=== PATIENT | male | born 1935 | race Caucasian/White ===

== ENCOUNTER 2018-07-26 11:13 | Observation (INO) ==
[2018-07-26 11:44] LABS: BILIRUBIN,URINE NEGATIVE (NEGATIVE); BLOOD/HEMOGLOBIN,URINE 4+ (NEGATIVE); GLUCOSE, URINE NEGATIVE (NEGATIVE); KETONES,URINE 1+ (NEGATIVE); LEUKOCYTE ESTERASE ,URINE 1+ (NEGATIVE); NITRITES,URINE NEGATIVE (NEGATIVE); PROTEIN,URINE 1+ (NEGATIVE); UROBILINOGEN,URINE NORMAL (NORMAL)
[2018-07-26 11:48] LABS: APPEARANCE,URINE CLEAR (CLEAR); BACTERIA,URINE NEGATIVE /HPF (NEGATIVE); COLOR,URINE YELLOW (YELLOW); SQUAMOUS EPITHELIAL CELL,UR NEGATIVE /HPF (NEGATIVE)
[2018-07-26 11:54] LABS: BASOPHILS % (AUTO) 0.5 % (0.2-1.0); EOSINOPHILS # (AUTO) 0.2 x10^3/uL (0.0-0.2); EOSINOPHILS % (AUTO) 2.3 % (0.9-2.9); HEMOGLOBIN 8.6 g/dL (13.5-18.0); LYMPHOCYTES # (AUTO) 0.8 X10^3/uL (1.3-2.9); LYMPHOCYTES % (AUTO) 9.3 % (21.0-51.0); MEAN CORPUSCULAR HEMOGLOBIN 31.7 pg (27.0-34.0); MEAN CORPUSCULAR HGB CONC 34.2 g/dL (33.0-35.0); MEAN CORPUSCULAR VOLUME 92.7 fL (80.0-100.0); MEAN PLATELET VOLUME 8.5 fL (7.4-11.0); MONOCYTES # (AUTO) 0.7 x10^3/uL (0.3-0.8); MONOCYTES % (AUTO) 8.2 % (0.0-13.0); NEUTROPHILS # (AUTO) 6.5 x10^3/uL (2.2-4.8); NEUTROPHILS % (AUTO) 79.7 % (42.0-75.0); PLATELET COUNT 148 X10^3/uL (150.0-450.0); RED CELL DISTRIBUTION WIDTH 14.5 % (11.6-16.5); WHITE BLOOD COUNT 8.2 X10^3/uL (3.6-10.0)
[2018-07-26] MEDS ORDERED: NS 100 ML IV 100 ML IV ONE (11:54)
[2018-07-26 12:01] LABS: ALANINE AMINOTRANSFERASE 47 Units/L (12-78); ALBUMIN 2.2 g/dL (3.4-5.0); ALKALINE PHOSPHATASE 90 Units/L (46-116); ASPARTATE AMINO TRANSFERASE 29 Units/L (15-37); BLOOD UREA NITROGEN 48 mg/dL (7-18); CHLORIDE 102 mmol/L (98-107); COR CA(FOR HYPOALB) 9.4 mg/dL (8.5-10.1); COR NA(FOR HYPERGLY) 139 mmol/L (136-145); CREATININE 0.87 mg/dL (0.70-1.30); SODIUM 138 mmol/L (136-145); TOTAL PROTEIN 5.3 g/dL (6.4-8.2); eGFR NON BLACK RACES > 60 (>60)
[2018-07-26 12:08] LABS: BAND NEUTROPHILS % 10 % (0-10); PLATELET MORPHOLOGY COMMENT NORMAL (NORMAL)
--- NOTE | 2018-07-26 13:01 | CT ---
HISTORY: Weakness, nausea, vomiting status post aortic surgery Study: CT chest abdomen pelvis with contrast Comparison: 06/19/2018 Technique: Axial post-contrast images with coronal and sagittal reformats. Dose reduction procedures were used with mA/kv adjusted for body size. Findings: CT chest with contrast: Examination of the mediastinum demonstrated no evidence for mediastinal masses, enlarged mediastinal or enlarged hilar adenopathy. There is dilatation of the aortic root and ascending aorta maximum diameter 4.3 cm. There is focal aneurysmal dilatation of the aortic arch maximum diameter 5.13 cm. No dissection identified. The origins of the great vessels are normal. No chest wall or axillary abnormality is identified. Examination of the lung horne demonstrated no definite nodules, masses, alveolar infiltrates, areas of consolidation, peribronchial thickening, or bronchiectasis. Mild nonspecific interstitial lung changes are present. CT abdomen pelvis with contrast: The liver, spleen, adrenal glands, and pancreas are within normal limits. Cholelithiasis is present. No evidence for cholecystitis. The kidneys are unobstructed and without stones or masses. Multiple bilateral renal cysts are present. No ureteral calculi are identified. The patient is status post recent aorto bi femoral stent graft placement. 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 The aneurysm extends over a distance of 10.3 cm and demonstrates maximum AP diameter 5.6 cm and maximum transverse diameter 5.3 cm. This is unchanged when compared with the prior examination. There is no evidence for leak. There are no findings suggestive of enteritis, diverticulitis, or colitis. 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 No pelvic masses, pelvic fluid, or pelvic lymphadenopathy is identified. There is a 4 cm by 3.7 cm by 5 cm hematoma surrounding the proximal left superficial femoral artery. There is no evidence for leak . Ultrasound may be of further diagnostic value in entirely excluding pseudoaneurysm. No lytic or blastic skeletal lesions of significance are identified. IMPRESSION: Dilatation of the aortic root maximum diameter 4.3 cm. Focal aneurysmal dilatation of the mid aortic arch maximum diameter 5.13 cm. Lungs clear Status post recent aortic stent graft placement in a fusiform infrarenal abdominal aortic aneurysm and left common iliac artery aneurysm. The graft is patent. There is no leak or enlargement of the diomede aneurysm Left internal iliac artery aneurysm status post coiling and unchanged in size from the prior examination.1 4.3 x 3.7 x 5 cm hematoma surrounding the proximal left superficial femoral artery without definite evidence for arterial leak ultrasound may be of further diagnostic value in entirely excluding pseudoaneurysm. Reported By:
--- NOTE | 2018-07-26 14:53 | DR.EXTPAIN ---
HPI Time seen Time Seen by Provider: 07/26/18 11:23 PCP Primary Care Physician: tatum Complaint/Symptoms Chief Complaint Doctor Comments: I agree with history as stated. Spouse states that patient has been very weak since being home on yesterday. He has vomited x 2 since discharged. There has been no dyspnea, just weakess. Chief Complaint:: patient stated he had a aneurysm repair in [place] last sunday and when he got home sunday he has been weak,nauseated and he vomited twice in 4 days. Source History Provided: Patient Mode of arrival Mode of Arrival: Ambulatory Timing Onset of Chief Complaint: 07/23/18 PMH PMH Past Medical History: Yes Past Medical History: Hypertension Past Surgical History: Yes Surgical History: Other Family History History of Family Medical Conditions: Yes Family Medical History: [place] and Hypertension Social History Does patient currently use any type of tobacco product: No Have you used tobacco products in the last 12 months: No Type of Tobacco Use: None Does any household member use tobacco: No Alcohol Use: None Do you use any recreational Drugs:: No Lives With: Family Lives Where: Home infectious screening In the last 2 months have you had wt loss of >10#?: NO Have you had fever, night sweats or hemotysis?: No Have you traveled outside the country in the last 6 months?: No Isolation: Standard PE Vital Signs Vitals: Temperature 98.6 F Pulse Rate [Right Brachial] 81 Pulse Rate 94 Respiratory Rate 16 Blood Pressure [Right Arm] 100/79 Blood Pressure 108/62 O2 Sat by Pulse Oximetry 99 General Limitations: No Limitations General Appearance: Alert and In No Apparent Distress Head Head Exam: Normal Inspection, Atraumatic and Normocephalic Eyes Eye exam: Normal Appearance and PERRL ENT ENT Exam: Normal Exam and Normal Oropharynx Chest Chest Inspection: Normal Inspection and Symmetric Chest Wall Rise Respiratory Respiratory Exam: Normal Lung Sounds Bilat Respiratory Exam: Bilateral: Clear to Auscultation Cardiovascular Cardiovascular Exam: Regular Rate and Normal Rhythm Abdominal Exam Abdominal Exam: Normal Inspection, Normal Bowel Sounds and Soft Extremities Extremities Exam: Normal Inspection and Full ROM Upper Extremities Shoulder Exam: Normal Inspection and Full ROM Arm Exam: Normal Inspection and Full ROM Elbow Exam: Normal Inspection Forearm Exam: Normal Inspection and Full ROM Hand Exam: Normal Inspection Neuromotor Exam: Normal Exam Neurosensory Exam: Normal Exam Lower Extremities Hip/Pelvis Exam: Normal Inspection Upper Leg Exam: Normal Inspection Knee Exam: Normal Inspection Lower Leg Exam: Normal Inspection Ankle Exam: Normal Inspection Foot/Toe Exam: Normal Inspection Neurovascular/Tendon Exam: Normal Capillary Refill Back Back Exam: Normal Inspection Neurological Neurological Exam: Alert, Oriented X3 and CN II-XII Intact Psychiatric Psychiatric Exam: Normal Affect Skin Skin Exam: Warm, Dry and Intact COURSE Consultation Called: 14:10 Consultation Comments: Dr. Cartagena called stated that he will direct admit patient. Physical completed. ROR Labs Reviewed Result Diagrams: 07/26/18 11:35 07/26/18 11:35 Laboratory: WBC 8.2 X10^3/uL (3.6-10.0) 07/26/18 11:35 RBC 2.70 X10^6/uL (4.7-6.0) L 07/26/18 11:35 Hgb 8.6 g/dL (13.5-18.0) L 07/26/18 11:35 Hct 25.0 % (42.0-54.0) L 07/26/18 11:35 MCV 92.7 fL (80.0-100.0) 07/26/18 11:35 MCH 31.7 pg (27.0-34.0) 07/26/18 11:35 MCHC 34.2 g/dL (33.0-35.0) 07/26/18 11:35 RDW 14.5 % (11.6-16.5) 07/26/18 11:35 Plt Count 148 X10^3/uL (150.0-450.0) L 07/26/18 11:35 Plt Count Comment Adequate (ADEQUATE) 07/26/18 11:35 MPV 8.5 fL (7.4-11.0) 07/26/18 11:35 Neut % (Auto) 79.7 % (42.0-75.0) H 07/26/18 11:35 Lymph % (Auto) 9.3 % (21.0-51.0) L 07/26/18 11:35 [place] % (Auto) 8.2 % (0.0-13.0) 07/26/18 11:35 Eos % (Auto) 2.3 % (0.9-2.9) 07/26/18 11:35 Baso % (Auto) 0.5 % (0.2-1.0) 07/26/18 11:35 Neut # (Auto) 6.5 x10^3/uL (2.2-4.8) H 07/26/18 11:35 Lymph # (Auto) 0.8 X10^3/uL (1.3-2.9) L 07/26/18 11:35 [place] # (Auto) 0.7 x10^3/uL (0.3-0.8) 07/26/18 11:35 Eos # (Auto) 0.2 x10^3/uL (0.0-0.2) 07/26/18 11:35 Baso # (Auto) 0.0 X10^3/uL (0.0-0.1) 07/26/18 11:35 Absolute Nucleated RBC 0.2 /100WBC 07/26/18 11:35 Total Counted 100 07/26/18 11:35 Neutrophils % (Manual) 72 % (39-76) 07/26/18 11:35 Band Neutrophils % 10 % (0-10) 07/26/18 11:35 Lymphocytes % (Manual) 10 % (13-43) L 07/26/18 11:35 Monocytes % (Manual) 6 % (4-9) 07/26/18 11:35 Eosinophils % (Manual) 2 % (0-6) 07/26/18 11:35 Plt Morphology Comment Normal (NORMAL) 07/26/18 11:35 RBC Morphology Normal (NORMAL) 07/26/18 11:35 Sodium 138 mmol/L (136-145) 07/26/18 11:35 Corrected Sodium 139 mmol/L (136-145) 07/26/18 11:35 Potassium 4.5 mmol/L (3.5-5.1) 07/26/18 11:35 Chloride 102 mmol/L (98-107) 07/26/18 11:35 Carbon Dioxide 29.0 mmol/L (21-32) 07/26/18 11:35 BUN 48 mg/dL (7-18) H 07/26/18 11:35 Creatinine 0.87 mg/dL (0.70-1.30) 07/26/18 11:35 Est GFR (MDRD) Af Amer > 60 (>60) 07/26/18 11:35 Est GFR (MDRD) Non-Af > 60 (>60) 07/26/18 11:35 Glucose 131 mg/dL (65-99) H 07/26/18 11:35 Calcium 8.0 mg/dL (8.5-10.1) L 07/26/18 11:35 Corrected Calcium 9.4 mg/dL (8.5-10.1) 07/26/18 11:35 Total Bilirubin 0.70 mg/dL (0.2-1.0) 07/26/18 11:35 AST 29 Units/L (15-37) 07/26/18 11:35 ALT 47 Units/L (12-78) 07/26/18 11:35 Alkaline Phosphatase 90 Units/L (46-116) 07/26/18 11:35 C-Reactive Protein 60.40 mg/L (0-3.0) H 07/26/18 11:35 Total Protein 5.3 g/dL (6.4-8.2) L 07/26/18 11:35 Albumin 2.2 g/dL (3.4-5.0) L 07/26/18 11:35 Globulin 3.1 g/dL (2.5-4.5) 07/26/18 11:35 Albumin/Globulin Ratio 0.7 Ratio (1.1-2.1) L 07/26/18 11:35 Specimen Type Catherized urine 07/26/18 11:36 Urine Color Yellow (YELLOW) 07/26/18 11:36 Urine Appearance Clear (CLEAR) 07/26/18 11:36 Urine pH 8.0 (5.0 - 8.0) 07/26/18 11:36 Ur Specific [place] 1.010 (1.000-1.030) 07/26/18 11:36 Urine Protein 1+ (NEGATIVE) 07/26/18 11:36 Urine Glucose (UA) Negative (NEGATIVE) 07/26/18 11:36 Urine Ketones 1+ (NEGATIVE) 07/26/18 11:36 Urine Occult Blood 4+ (NEGATIVE) 07/26/18 11:36 Urine Nitrite Negative (NEGATIVE) 07/26/18 11:36 Urine Bilirubin Negative (NEGATIVE) 07/26/18 11:36 Urine Urobilinogen Normal (NORMAL) 07/26/18 11:36 Ur Leukocyte Esterase 1+ (NEGATIVE) 07/26/18 11:36 Urine RBC 3-5 /HPF (NONE SEEN) 07/26/18 11:36 Urine WBC None seen /HPF (NONE SEEN) 07/26/18 11:36 Ur Squamous Epith Cells Negative /HPF (NEGATIVE) 07/26/18 11:36 Urine Bacteria Negative /HPF (NEGATIVE) 07/26/18 11:36 Ur Culture Indicated? No/not indicated 07/26/18 11:36 Diagnosis Discharge Problem: Weakness, S/P abdominal aortic aneurysm repair
[2018-07-26] MEDS ORDERED: PROCALAMINE 3 % 1,000 ML IV SCH (15:00)
[2018-07-26] MEDS ORDERED: ALBUMIN HUMAN 25%- 100 ML 100 ML IV SCH (15:00)
[2018-07-26 15:09] VITALS: BMI 19.2
[2018-07-26] MEDS: NS 1000 ML 1,000 ML IV SCH (15:27)
[2018-07-26] MEDS ORDERED: MEGACE PO SCH (21:00)
[2018-07-26] MEDS ORDERED: ZOFRAN INJ 4 MG VIAL IVP PRN (23:51)
[2018-07-27] MEDS ORDERED: PHENERGAN INJ 25 MG IV PRN (01:16)
[2018-07-27] MEDS ORDERED: PHENERGAN INJ 25 MG ONE (01:19)
[2018-07-27 02:51] LABS: HEMOGLOBIN 6.1 g/dL (13.5-18.0)
[2018-07-27 02:52] LABS: HEMATOCRIT 18.3 % (42.0-54.0)
[2018-07-27] MEDS ORDERED: TRANEXAMIC ACID 1,000 MG in NS 100 ML IV 100 ML IV SCH (03:27)
[2018-07-27] MEDS ORDERED: TRANEXAMIC ACID 1,000 MG in NS 1000 ML 1,000 ML IV SCH (03:27)
[2018-07-27] MEDS ORDERED: NS 500 ML IV 500 ML IV ONE (03:27)
[2018-07-27] MEDS ORDERED: PROTONIX INJ 40 MG VIAL ONE (03:36)
[2018-07-27] MEDS ORDERED: TRANEXAMIC ACID IV ONE (03:37)
[2018-07-27] MEDS ORDERED: NS 100 ML IV 100 ML IV ONE ×2 (03:40→07:11)
[2018-07-27] MEDS ORDERED: PROTONIX INJ 40 MG VIAL IVP SCH (04:00)
[2018-07-27] MEDS ORDERED: NS 250 ML IV 250 ML IV ONE (07:11)
[2018-07-27 07:14] LABS: ALANINE AMINOTRANSFERASE 38 Units/L (12-78); ALBUMIN 1.9 g/dL (3.4-5.0); ALKALINE PHOSPHATASE 61 Units/L (46-116); ASPARTATE AMINO TRANSFERASE 28 Units/L (15-37); BLOOD UREA NITROGEN 53 mg/dL (7-18); CALCIUM 7.2 mg/dL (8.5-10.1); CARBON DIOXIDE 25.7 mmol/L (21-32); CHLORIDE 106 mmol/L (98-107); COR CA(FOR HYPOALB) 8.9 mg/dL (8.5-10.1); COR NA(FOR HYPERGLY) 140 mmol/L (136-145); CREATININE 0.86 mg/dL (0.70-1.30); SODIUM 139 mmol/L (136-145); TOTAL PROTEIN 4.2 g/dL (6.4-8.2); eGFR NON BLACK RACES > 60 (>60)
[2018-07-27 07:20] LABS: BASOPHILS % (AUTO) 0.4 % (0.2-1.0); EOSINOPHILS # (AUTO) 0.1 x10^3/uL (0.0-0.2); HEMOGLOBIN 7.3 g/dL (13.5-18.0); LYMPHOCYTES # (AUTO) 0.6 X10^3/uL (1.3-2.9); LYMPHOCYTES % (AUTO) 6.4 % (21.0-51.0); MEAN CORPUSCULAR HEMOGLOBIN 30.2 pg (27.0-34.0); MEAN CORPUSCULAR HGB CONC 34.6 g/dL (33.0-35.0); MEAN CORPUSCULAR VOLUME 87.4 fL (80.0-100.0); MEAN PLATELET VOLUME 8.4 fL (7.4-11.0); MONOCYTES # (AUTO) 0.5 x10^3/uL (0.3-0.8); MONOCYTES % (AUTO) 5.9 % (0.0-13.0); NEUTROPHILS # (AUTO) 7.4 x10^3/uL (2.2-4.8); NEUTROPHILS % (AUTO) 86.3 % (42.0-75.0); PLATELET COUNT 120 X10^3/uL (150.0-450.0); RED CELL DISTRIBUTION WIDTH 17.9 % (11.6-16.5); WHITE BLOOD COUNT 8.6 X10^3/uL (3.6-10.0)
[2018-07-27] MEDS ORDERED: TYLENOL 325 MG TAB PO ONE (07:29)
[2018-07-27] MEDS ORDERED: PROTONIX INJ 40 MG VIAL 80 MG in NS 100 ML IV 80 ML IV SCH (07:35)
[2018-07-27] MEDS: NS 1000 ML 1,000 ML IV SCH (08:00)
[2018-07-27] MEDS: NS 250 ML IV 250 ML IV SCH ×2 (08:01→08:02)
[2018-07-27 09:13] LABS: BAND NEUTROPHILS % 5 % (0-10); HYPOCHROMASIA SLIGHT; PLATELET MORPHOLOGY COMMENT NORMAL (NORMAL)
[2018-07-27 09:14] LABS: ANISOCYTOSIS SLIGHT
[2018-07-27 09:43] LABS: GASTRIC OCCULT BLOOD POSITIVE (NEGATIVE); PH,GASTRIC FLUID 4
[2018-07-27 09:56] VITALS: BP 96/57
== END 2018-07-27 09:45 | disposition short-term general hospital (02) ==
LOC: ER 11:15 → MED/SURG 11:15 → ICU 07-27 03:20
PROVIDERS: ADMIT Internal Medicine; ATTEND Internal Medicine
DX: R57.1 Hypovolemic shock; R11.2 Nausea with vomiting, unspecified; M19.90 Unspecified osteoarthritis, unspecified site; K92.2 Gastrointestinal hemorrhage, unspecified; I10 Essential (primary) hypertension; R42 Dizziness and giddiness; R51 Headache; Z79.899 Other long term (current) drug therapy; Z98.890 Other specified postprocedural states; R53.1 Weakness; Z66 Do not resuscitate; I95.89 Other hypotension
CPT/HCPCS: 36415; 71260; 74177; 80053; 81001; 82270; 82271; 85014; 85018; 85025; 85610; 86140; 86850; 86900; 86901; 86922; 93005; 96365; 99217; 99284; A4222; B5200; C9113; P9016; P9017; P9047; S0179; G0378; J2405; J2550; J3490; J7030; J7040; J7050

== ENCOUNTER 2018-08-18 14:23 | Inpatient (IN) ==
[2018-08-18] MEDS ORDERED: TUSSIONEX PENNKINETIC SUSP PO PRN (16:17)
[2018-08-18] MEDS ORDERED: NS 1/2 1000 ML IV 1,000 ML IV ONE (16:50)
--- NOTE | 2018-08-18 17:06 | RAD ---
Exam: Chest two views History: 83-year-old male with possible pneumonia. Comparison: Previous CT of the chest from 07/26/2018 Findings: Heart size and pulmonary vasculature are normal. Thoracic aorta is tortuous. Mild interstitial scarring is seen at the lung bases. No acute infiltrate or significant effusion on either side. Bony thorax is unremarkable. Impression: Chronic interstitial scarring is noted at the lung bases. However no acute cardiopulmonary abnormality is seen on this exam Reported By:
[2018-08-18 17:17] LABS: BASOPHILS % (AUTO) 0.6 % (0.2-1.0); EOSINOPHILS # (AUTO) 0.3 x10^3/uL (0.0-0.2); EOSINOPHILS % (AUTO) 6.4 % (0.9-2.9); HEMOGLOBIN 11.9 g/dL (13.5-18.0); LYMPHOCYTES # (AUTO) 0.6 X10^3/uL (1.3-2.9); MEAN CORPUSCULAR HEMOGLOBIN 30.8 pg (27.0-34.0); MEAN CORPUSCULAR HGB CONC 33.2 g/dL (33.0-35.0); MEAN PLATELET VOLUME 8.3 fL (7.4-11.0); MONOCYTES # (AUTO) 0.5 x10^3/uL (0.3-0.8); MONOCYTES % (AUTO) 8.9 % (0.0-13.0); NEUTROPHILS # (AUTO) 3.7 x10^3/uL (2.2-4.8); NEUTROPHILS % (AUTO) 72.1 % (42.0-75.0); PLATELET COUNT 150 X10^3/uL (150.0-450.0); RED BLOOD COUNT 3.87 X10^6/uL (4.7-6.0); RED CELL DISTRIBUTION WIDTH 18.7 % (11.6-16.5); WHITE BLOOD COUNT 5.1 X10^3/uL (3.6-10.0)
[2018-08-18 17:25] LABS: ALANINE AMINOTRANSFERASE 27 Units/L (12-78); ALKALINE PHOSPHATASE 143 Units/L (46-116); ASPARTATE AMINO TRANSFERASE 24 Units/L (15-37); BLOOD UREA NITROGEN 20 mg/dL (7-18); CARBON DIOXIDE 28.6 mmol/L (21-32); CHLORIDE 102 mmol/L (98-107); COR CA(FOR HYPOALB) 9.8 mg/dL (8.5-10.1); CREATININE 1.18 mg/dL (0.70-1.30); SODIUM 139 mmol/L (136-145); TOTAL PROTEIN 6.7 g/dL (6.4-8.2); eGFR NON BLACK RACES > 60 (>60)
[2018-08-18] MEDS: NS 1/2 1000 ML IV 1,000 ML IV SCH (17:43)
[2018-08-18] MEDS: ROBITUSSIN DM PO SCH ×3 (17:47→22:46)
[2018-08-18] MEDS: LOVENOX INJ 40 MG SYR SC SCH (17:48)
[2018-08-18] MEDS: LEVAQUIN PREMIX IV 500 MG 500 MG/100 ML BAG IV SCH (18:04)
[2018-08-18] MEDS: FORTAZ or TAZICEF VIAL INJ IVP SCH (20:32)
[2018-08-18] MEDS: RESTORIL CAP 15 MG PO PRN (20:37)
[2018-08-18] MEDS ORDERED: DUONEB 0.5 MG/3 MG NEB SCH (21:00)
[2018-08-19] MEDS ORDERED: NS 1/2 1000 ML IV 1,000 ML IV ONE (05:19)
[2018-08-19 05:25] LABS: BASOPHILS % (AUTO) 0.6 % (0.2-1.0); EOSINOPHILS # (AUTO) 0.3 x10^3/uL (0.0-0.2); EOSINOPHILS % (AUTO) 7.4 % (0.9-2.9); HEMATOCRIT 34.6 % (42.0-54.0); HEMOGLOBIN 11.4 g/dL (13.5-18.0); LYMPHOCYTES # (AUTO) 0.7 X10^3/uL (1.3-2.9); LYMPHOCYTES % (AUTO) 16.5 % (21.0-51.0); MEAN CORPUSCULAR HEMOGLOBIN 30.7 pg (27.0-34.0); MEAN CORPUSCULAR HGB CONC 33.1 g/dL (33.0-35.0); MEAN CORPUSCULAR VOLUME 92.9 fL (80.0-100.0); MEAN PLATELET VOLUME 8.6 fL (7.4-11.0); MONOCYTES # (AUTO) 0.4 x10^3/uL (0.3-0.8); MONOCYTES % (AUTO) 10.2 % (0.0-13.0); NEUTROPHILS # (AUTO) 2.8 x10^3/uL (2.2-4.8); NEUTROPHILS % (AUTO) 65.3 % (42.0-75.0); PLATELET COUNT 139 X10^3/uL (150.0-450.0); RED BLOOD COUNT 3.72 X10^6/uL (4.7-6.0); RED CELL DISTRIBUTION WIDTH 18.6 % (11.6-16.5); WHITE BLOOD COUNT 4.3 X10^3/uL (3.6-10.0)
[2018-08-19 05:30] LABS: ALANINE AMINOTRANSFERASE 24 Units/L (12-78); ALBUMIN 2.6 g/dL (3.4-5.0); ALKALINE PHOSPHATASE 128 Units/L (46-116); ASPARTATE AMINO TRANSFERASE 23 Units/L (15-37); BLOOD UREA NITROGEN 18 mg/dL (7-18); CALCIUM 8.8 mg/dL (8.5-10.1); CARBON DIOXIDE 28.6 mmol/L (21-32); CHLORIDE 104 mmol/L (98-107); COR CA(FOR HYPOALB) 9.9 mg/dL (8.5-10.1); CREATININE 1.06 mg/dL (0.70-1.30); SODIUM 142 mmol/L (136-145); TOTAL PROTEIN 6.2 g/dL (6.4-8.2); eGFR NON BLACK RACES > 60 (>60)
[2018-08-19] MEDS ORDERED: POTASSIUM CHL 40 MEQ/NS 0.45% 500 ML IV PRN (06:07)
[2018-08-19] MEDS ORDERED: MAGNESIUM SULFATE 1 GRAM/100 mL PREMIX 1 GM/100 ML BAG IV PRN (06:07)
[2018-08-19] MEDS ORDERED: K-RIDER 10 MEQ/NS 100 ML 10 MEQ/100 ML BAG IV PRN (06:07)
[2018-08-19] MEDS ORDERED: POTASSIUM CHL 60 MEQ/NS 0.45% 500 ML IV PRN (06:07)
[2018-08-19] MEDS ORDERED: KLOR-CON PO PRN (06:07)
[2018-08-19] MEDS ORDERED: POTASSIUM CHLORIDE LIQ 20 MEQ UDC PO PRN (06:07)
[2018-08-19] MEDS ORDERED: K-DUR TAB 20 MEQ PO PRN (06:07)
[2018-08-19] MEDS ORDERED: MICRO K EXTEN CAP 10 MEQ PO PRN (06:07)
[2018-08-19] MEDS: NS 1/2 1000 ML IV 1,000 ML IV SCH ×2 (06:10→21:46)
--- NOTE | 2018-08-19 06:30 | VAS ---
HISTORY: Right knee swelling Study: Right lower extremity venous Doppler Comparison: None Technique: Multiple grayscale sonographic images were obtained. Findings: The common femoral vein, superficial femoral vein, and popliteal veins are patent and without evidence for deep venous thrombosis. There does appear to be a partially thrombosed 4.5 x 3.8 by approximately 4.8 cm partially thrombosed popliteal artery aneurysm present. CTA and vascular surgery consultation is recommended. IMPRESSION: No evidence for deep venous thrombosis right lower extremity Approximately 4.5 x 3.8 x 4.8 cm partially thrombosed popliteal artery aneurysm for which CTA and vascular surgery consultation are recommended. Reported By:
--- NOTE | 2018-08-19 06:52 | RAD ---
Chest, one view Indication: Shortness of breath Comparison: 08/18/2018 Findings: The heart is normal in size. There is stable mild ectasia of the thoracic aorta. Chronic interstitial changes within the bilateral lung bases appear stable. No acute infiltrate, significant effusion or pneumothorax is identified. There is no acute osseous abnormality. Impression: No acute chest process or significant interval change. Reported By:
[2018-08-19 08:47] VITALS: BMI 19.9
[2018-08-19] MEDS ORDERED: XOPENEX 1.25 MG/3 ML NEBULE NEB SCH (09:00)
--- NOTE | 2018-08-19 09:03 | CT ---
CT angiogram of the abdomen and pelvis with bilateral lower extremity runoff Indication: Right knee pain and swelling. 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 Comparison: 06/19/2018 Technique: CT images of the abdomen and pelvis were obtained with IV contrast per protocol. Automatic exposure control was utilized. MIP images provided. Angiographic findings: There are changes of interval aorto bi-iliac endostenting, with stable size of the infrarenal aortic aneurysm, which measures up to 5.5 cm in diameter, previously 5.6 cm. There is unchanged ectasia of the common iliac arteries. Multilobular aneurysm of the left internal iliac artery is similar to prior, with multiple vascular coils which are new. There are new postsurgical changes about the left common femoral artery, which measures up to 1.7 cm in diameter, previously 2.3 cm. There scattered atherosclerotic plaques of the aorta and its major branches, without significant narrowing or dissection. Right lower extremity: There are scattered atherosclerotic calcifications of the SFA, without aneurysm, narrowing, or dissection. The deep femoral artery demonstrates minimal atherosclerosis, but is otherwise unremarkable. There is a mostly thrombosed due to form aneurysm of the distal popliteal artery measuring up to 4.5 x 3.9 cm in maximum axial dimension (image 58, series 5) and approximately 8 cm in longitudinal span. There is additional aneurysmal dilatation of the more proximal popliteal artery measuring 1.4 cm (image 37). The most proximal portion of the anterior tibial artery is patent, but the majority of this artery is occluded. There is diminished flow within the posterior tibial and peroneal arteries diffusely, with only minimal flow appreciated within these arteries at the level of the ankle. Left lower extremity: Deep femoral artery demonstrates minimal atherosclerosis, without narrowing. There are scattered atherosclerotic calcifications of the superficial femoral artery, without significant narrowing, aneurysm, or dissection. There is a peripherally thrombosed popliteal artery aneurysm measuring up to 1.5 cm in diameter. The proximal portions of the posterior tibial, anterior tibial, and peroneal arteries demonstrate scattered atherosclerotic plaques, but are grossly patent. There is significantly diminished flow within the distal portions of these arteries, with only minimal flow observed within the peroneal artery at the level of the ankle. No significant anterior or posterior tibial artery flow is identified at the ankle. Non angiographic findings: There are chronic interstitial changes of the lung bases. No acute infiltrates or pleural effusion. The liver, gallbladder, spleen, stomach, duodenum, pancreas, and adrenals demonstrate no significant abnormality. Multiple bilateral renal cysts are similar prior, greater on the left. There are stable nonobstructing bilateral renal stones. No significant bowel thickening or dilatation of the lower GI tract appreciated. The urinary bladder, prostate, and rectum are unremarkable. No free fluid or adenopathy identified. Impression: 1. 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 Additional more proximal right popliteal artery aneurysm measuring 1.4 cm. 1.5 cm left popliteal artery aneurysm 2. Severe distal lower extremity atherosclerosis, with very minimal flow in the right peroneal and posterior tibial artery at the level of the ankle and occlusion of nearly the entire right anterior tibial artery. Single vessel runoff of the left lower extremity with minimal flow in the distal peroneal artery at the ankle. Consider further evaluation with arterial ultrasound or conventional angiography. 3. Interval aorto bi-iliac endostenting with grossly stable infrarenal aortic aneurysm. 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 Postsurgical changes of the left common femoral artery, with decrease in size, currently measuring 1.7 cm in diameter, previously 2.3 cm. Reported By:
[2018-08-19] MEDS: LEVAQUIN PREMIX IV 500 MG 500 MG/100 ML BAG IV SCH (09:10)
[2018-08-19] MEDS: LOVENOX INJ 40 MG SYR SC SCH (09:11)
[2018-08-19] MEDS: ROBITUSSIN DM PO SCH ×4 (09:11→20:10)
[2018-08-19] MEDS: FORTAZ or TAZICEF VIAL INJ IVP SCH ×2 (09:11→20:10)
[2018-08-19] MEDS ORDERED: FIORICET TAB PO PRN (10:51)
[2018-08-19] MEDS: XOPENEX 1.25 MG/3 ML NEBULE NEB SCH ×2 (12:02→17:23)
[2018-08-19] MEDS ORDERED: KLONOPIN TAB 1 MG PO PRN (12:19)
[2018-08-19] MEDS ORDERED: ZOFRAN INJ 4 MG VIAL IVP PRN (12:49)
[2018-08-19] MEDS: MIRALAX POWDER (255 GRAMS BTL) PO SCH (13:19)
[2018-08-19] MEDS: PROTONIX TAB 40 MG PO SCH ×2 (13:19→20:11)
[2018-08-19] MEDS: PEPCID TAB 20 MG PO SCH ×2 (13:19→20:11)
[2018-08-19] MEDS: SINGULAIR TAB 10 MG PO SCH (13:19)
[2018-08-19] MEDS: [UNRECOGNIZED DRUG - OTHER] PO SCH ×2 (13:25→14:47)
[2018-08-19] MEDS: PROAMATINE PO SCH ×3 (13:26→21:47)
[2018-08-19] MEDS: DEMEROL INJ IVP PRN (19:35)
[2018-08-19] MEDS: FLOMAX PO SCH (20:10)
[2018-08-19] MEDS: RESTORIL CAP 15 MG PO PRN (20:11)
[2018-08-20] MEDS: XOPENEX 1.25 MG/3 ML NEBULE NEB SCH ×4 (00:25→18:35)
[2018-08-20] MEDS: DEMEROL INJ IVP PRN (01:31)
[2018-08-20 05:17] LABS: BASOPHILS % (AUTO) 0.4 % (0.2-1.0); EOSINOPHILS # (AUTO) 0.2 x10^3/uL (0.0-0.2); EOSINOPHILS % (AUTO) 4.8 % (0.9-2.9); HEMATOCRIT 31.8 % (42.0-54.0); HEMOGLOBIN 10.6 g/dL (13.5-18.0); LYMPHOCYTES # (AUTO) 0.6 X10^3/uL (1.3-2.9); LYMPHOCYTES % (AUTO) 13.2 % (21.0-51.0); MEAN CORPUSCULAR HEMOGLOBIN 31.1 pg (27.0-34.0); MEAN CORPUSCULAR HGB CONC 33.5 g/dL (33.0-35.0); MEAN PLATELET VOLUME 8.4 fL (7.4-11.0); MONOCYTES # (AUTO) 0.6 x10^3/uL (0.3-0.8); MONOCYTES % (AUTO) 12.7 % (0.0-13.0); NEUTROPHILS # (AUTO) 3.2 x10^3/uL (2.2-4.8); NEUTROPHILS % (AUTO) 68.9 % (42.0-75.0); PLATELET COUNT 132 X10^3/uL (150.0-450.0); RED BLOOD COUNT 3.42 X10^6/uL (4.7-6.0); RED CELL DISTRIBUTION WIDTH 18.5 % (11.6-16.5); WHITE BLOOD COUNT 4.6 X10^3/uL (3.6-10.0)
[2018-08-20] MEDS: PROAMATINE PO SCH ×3 (05:18→21:39)
[2018-08-20 05:40] LABS: ALANINE AMINOTRANSFERASE 40 Units/L (12-78); ALBUMIN 2.5 g/dL (3.4-5.0); ALKALINE PHOSPHATASE 140 Units/L (46-116); ASPARTATE AMINO TRANSFERASE 22 Units/L (15-37); BLOOD UREA NITROGEN 15 mg/dL (7-18); CALCIUM 8.7 mg/dL (8.5-10.1); CHLORIDE 104 mmol/L (98-107); COR CA(FOR HYPOALB) 9.9 mg/dL (8.5-10.1); CREATININE 1.04 mg/dL (0.70-1.30); SODIUM 142 mmol/L (136-145); TOTAL PROTEIN 5.9 g/dL (6.4-8.2); eGFR NON BLACK RACES > 60 (>60)
--- NOTE | 2018-08-20 06:16 | RAD ---
HISTORY: Shortness of breath Study: Chest AP portable Comparison: 08/19/2018 Findings: The heart is within normal limits in size. The aorta is ectatic. No congestive heart failure is noted. No acute alveolar infiltrates or pleural effusions are identified. Mild interstitial lung changes are present. The bony thorax is unremarkable. IMPRESSION: No acute infiltrates Mild interstitial lung changes Reported By:
[2018-08-20] MEDS ORDERED: NS 1/2 1000 ML IV 1,000 ML IV ONE ×2 (08:32→20:51)
[2018-08-20] MEDS: PROTONIX TAB 40 MG PO SCH ×2 (08:53→21:36)
[2018-08-20] MEDS: SINGULAIR TAB 10 MG PO SCH (08:53)
[2018-08-20] MEDS: NS 1/2 1000 ML IV 1,000 ML IV SCH ×2 (08:53→21:35)
[2018-08-20] MEDS: FORTAZ or TAZICEF VIAL INJ IVP SCH ×2 (08:53→21:35)
[2018-08-20] MEDS: PEPCID TAB 20 MG PO SCH ×2 (08:53→21:36)
[2018-08-20] MEDS: ROBITUSSIN DM PO SCH ×4 (08:53→21:35)
[2018-08-20] MEDS: LEVAQUIN PREMIX IV 500 MG 500 MG/100 ML BAG IV SCH (08:53)
[2018-08-20] MEDS: [UNRECOGNIZED DRUG - OTHER] PO SCH (08:56)
[2018-08-20] MEDS: MIRALAX POWDER (255 GRAMS BTL) PO SCH (09:00)
[2018-08-20] MEDS ORDERED: FIORICET TAB PO PRN (10:16)
[2018-08-20] MEDS: MUCINEX DM PO SCH ×2 (12:15→21:35)
[2018-08-20] MEDS: FLONASE NASAL SPRAY ENOSTRIL SCH (12:15)
--- NOTE | 2018-08-20 19:34 | DR.H&P ---
H&P - History & Physical for Day of: H&P Date: 08/18/18 - Chief Complaint Chief Complaint: C/C/C, SOB, RIGHT KNEE PAIN AND SWELLING - History of Present Illness History of Present Illness: IS A 83 YEAR OLD PATIENT OF OURS WHO PRESENTED TO THE HOSPITAL A DIRECT ADMISSION FOR COMPLAINTS OF PERSISTENT COUGH, COLD, CONGESTION, AND SHORTNESS OF BREATH. HE REPORTS THAT THE SYMPTOMS STARTED THREE OR FOUR DAYS AGO AND HAS PROGRESSIVELY GOTTEN WORSE DESPITE TAKING ORAL ANTIBIOTICS AND A MEDROL DOSE PACK. HE ALSO REPORTS PAIN AND SWELLING TO THE RIGHT KNEE. HE IS STATUS POST FEMORAL ANEURYSM REPAIR AND EVAR. ON EXAMINATION, HE IS NOTED WITH SCATTERED WHEEZING. VITALS ON ARRIVAL WERE 98.4-88-20-96%-88/63. LABS WERE OBTAINED. ABNORMAL LAB VALUES INCLUDE THE FOLLOWING: RBC 3.87, HGB 11.9, HCT 36.0, BUN 20, GLUOSE 108, ALK PHOS 143, ALBUMIN 3.0. A CHEST XRAY WAS OBTAINED AND REVEALED: Chronic interstitial scarring is noted at the lung bases. WE PLAN TO OBTAIN A RIGHT LOWER EXTREMITY VENOUS DOPPLER AND A CT OF THE AORTA WITH RUN OFF TO THE EXTREMITIES. HE WAS STARTED ON IV ANTIBIOTICS AND RESPIRATORY TREATMENTS WELL GENTLE IV HYDRATION. WE PLAN TO FOLLOW UP WITH AM LABS AND CHEST XRAY AND CONTINUE TO MONITOR. - Past Medical History Past Medical History: Hypertension - Past Surgical History Surgical History: AAA Repair - Family History Family Medical History: Hypertension - Social History Does patient currently use any type of tobacco product: No Have you used tobacco products in the last 12 months: No Type of Tobacco Use: None Does any household member use tobacco: No Alcohol Use: None Drug Use: None - Medications Home Medications: No Known Drug Allergies Allergy (Verified 08/18/18 17:34) CONTINUE taking the following medications [id number] [Geritol Tonic with Ferrex 18] 15 ml PO DAILY 08/18/18 [History] clonazepam 0.5 mg PO HS PRN 08/18/18 [History] famotidine 40 mg PO BID 08/18/18 [History] midodrine 4 tab PO TID 08/18/18 [History] montelukast 10 mg PO DAILY 08/18/18 [History] pantoprazole 40 mg PO BID 08/18/18 [History] polyethylene glycol 3350 17 g PO DAILY 08/18/18 [History] temazepam 30 mg PO HS PRN 08/18/18 [History] - Review of Systems Constitutional: Weakness Eyes: No Symptoms Reported ENT: See HPI, Nose Discharge Respiratory: Cough, Shortness of Breath, SOB with Excertion, Wheezing Cardiovascular: Edema (RIGHT KNEE SWELLING ) Gastrointestinal: No Symptoms Reported Genitourinary: No Symptoms Reported Musculoskeletal: Other (RIGHT KNEE PAIN ) Skin: No Symptoms Reported Neurological: Weakness - Physical Exam Vital Signs: Temperature 98.9 F Pulse Rate [Right Brachial] 120 Pulse Rate 118 Respiratory Rate 20 Blood Pressure [Right Arm] 98/75 Blood Pressure 96/57 O2 Sat by Pulse Oximetry 94 Oriented: Normal Eyes: Normal Ear: Normal Nose: Normal Throat: Normal Respiratory: Diminished Throughout Cardiovascular: Edema (RIGHT KNEE SWELLING ) : Normal Auscultation: Bowel Sounds: Normal Palpation: Normal Tenderness: Normal Skin: Red, Tender, Hot Musculoskeletal: Right, Knee, Swelling, Tender Psychiatric: Normal Mood Description: Calm Affect: Normal Speech Pattern: Clear - Assessment/Plan (1) Pneumonia Qualifiers: Pneumonia type: due to unspecified organism Laterality: unspecified laterality Lung location: unspecified part of lung Qualified Code(s): J18.9 - Pneumonia, unspecified organism Status: Acute Plan: IV FORTAZ, IV LEVAQUIN, RESPIRATORY TX, SUPPLEMENTAL OXYGEN, CONTINUE TO MONITOR (2) Hyperlipidemia Qualifiers: Hyperlipidemia type: mixed hyperlipidemia Qualified Code(s): E78.2 - Mixed hyperlipidemia Status: Chronic (3) Weakness Status: Acute (4) S/P abdominal aortic aneurysm repair Status: Acute Plan: CTA AORTA WITH RUNOFF TO LOWER EXTREMITIES (5) Knee pain Qualifiers: Chronicity: acute Laterality: right Qualified Code(s): M25.561 - Pain in right knee Status: Acute Plan: VENOUS DOPPLER, CTA AORTA WITH RUNOFF TO EXTREMITIES - Allergies Allergies/Adverse Reactions: Allergies Allergy/AdvReac Type Severity Reaction Status Date / Time No Known Drug Allergies Allergy Verified 08/18/18 17:34
--- NOTE | 2018-08-20 19:47 | PCM.PROG ---
Progress Note - Progress Note for Day of Date of Exam: 08/19/18 - Subjective Subjective: WAS ADMITTED FOR PNEUMONIA AND RIGHT KNEE PAIN AND SWELLING S/P AAA REPAIR. TODAY, HE IS ALERT AND ORIENTED, LYING IN BED ON MORNING ROUNDS. HE CONTINUES WITH COMPLAINTS OF C/C/C, SOB, AND RIGHT KNEE PAIN. HE ALSO REPORTS A HEADACHE THIS MORNING. ON EXAMINATION, HEART IS REGULAR IN RATE AND RHYTHM. BILATERAL LUNGS CONTINUE WITH SCATTERED WHEEZING. ABDOMEN IS FLAT, SOFT, AND NON-TENDER WITH NORMAL BOWEL SOUNDS NOTED IN ALL QUADRANTS. RIGHT KNEE IS NOTED WITH ERYTHEMA, EDEMA, AND TENDERNESS. HIS VITALS THIS MORNING ARE 97.0-130-22-94%-106/72. LABS WERE OBTAINED. ABNORMAL LAB VALUES INCLUDE THE FOLLOWING: RBC 3.72, HGB 11.4, HCT 34.6, PLT COUNT 139, 1GLUCOSE 04, ALK PHOS 128, TOTAL PROTEIN 6.2, ALBUMIN 2.6. A CHEST XRAY WAS OBTAINED THIS MORNING AND REVEALED: No acute chest process or significant interval change. A LOWER EXTREMITY VENOUS DOPPLER WAS OBTAINED YESTERDAY AND REVEALED: No evidence for deep venous thrombosis right lower extremity. Approximately 4.5 x 3.8 x 4.8 cm partially thrombosed popliteal artery aneurysm for which CTA and vascular surgery consultation are recommended. 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 Additional more proximal right popliteal artery aneurysm measuring 1.4 cm. 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 Severe distal lower extremity atherosclerosis, with very minimal flow in the right peroneal and posterior tibial artery at the level of the ankle and occlusion of nearly the entire right anterior tibial artery. Single vessel runoff of the left lower extremity with minimal flow in the distal peroneal artery at the ankle. Consider further evaluation with arterial ultrasound or conventional angiography. Interval aorto bi-iliac endostenting with grossly stable infrarenal aortic aneurysm. 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 Postsurgical changes of the left common femoral artery, with decrease in size, currently measuring 1.7 cm in diameter, previously 2.3 cm. WE WILL SEND THESE RESULTS TO . OTHERWISE, WE WILL START FIORICET FOR HIS HEADACHES AND CONTINUE WITH IV ANTIBIOTICS, RESPIRATORY TREATMENTS, AND CURRENT PLAN OF CARE. WE WILL FOLLOW UP WITH AM LABS AND CONTINUE TO MONITOR. - Past Medical Family Social History Past Med/Fam/Surg Hx: No changes since H&P Allergies: Allergies No Known Drug Allergies Allergy (Verified 08/18/18 17:34) - Review of Systems ROS: No change since H&P - Vital Signs and I&O's Vital Signs: Temperature 98.9 F Pulse Rate [Right Brachial] 120 Pulse Rate 118 Respiratory Rate 20 Blood Pressure [Right Arm] 98/75 Blood Pressure 96/57 O2 Sat by Pulse Oximetry 94 Intake and Output: Intake & Output 08/18/18 08/19/18 08/20/18 08/21/18 11:59 11:59 11:59 11:59 Intake Total 1340 / 1340 1500 / 1500 720 / 720 Balance 1340 / 1340 1500 / 1500 720 / 720 - Physical Exam Oriented: Normal Eyes: Normal Ear: Normal Nose: Normal Throat: Normal Cardiovascular: Tachycardia, Edema (RIGHT KNEE SWELLING ) : Normal Auscultation: Bowel Sounds: Normal Palpation: Normal Tenderness: Normal Skin: Red, Tender, Hot Musculoskeletal: Right, Knee, Swelling, Tender Psychiatric: Normal Mood Description: Calm Affect: Normal Speech Pattern: Clear - Laboratory and Diagnostics Result Diagrams: 08/20/18 04:27 08/20/18 07:55 Labs: 08/18/18 17:05 Blood Blood Culture - Preliminary 08/18/18 16:55 Blood Blood Culture - Preliminary 08/18/18 18:03 Sputum - Expectorated Sputum Sputum Culture - Preliminary 08/18/18 18:03 Sputum - Expectorated Sputum - Final Laboratory WBC 4.6 X10^3/uL (3.6-10.0) 08/20/18 04:27 RBC 3.42 X10^6/uL (4.7-6.0) L 08/20/18 04:27 Hgb 10.6 g/dL (13.5-18.0) L 08/20/18 04:27 Hct 31.8 % (42.0-54.0) L 08/20/18 04:27 MCV 93.0 fL (80.0-100.0) 08/20/18 04:27 MCH 31.1 pg (27.0-34.0) 08/20/18 04:27 MCHC 33.5 g/dL (33.0-35.0) 08/20/18 04:27 RDW 18.5 % (11.6-16.5) H 08/20/18 04:27 Plt Count 132 X10^3/uL (150.0-450.0) L 08/20/18 04:27 MPV 8.4 fL (7.4-11.0) 08/20/18 04:27 Neut % (Auto) 68.9 % (42.0-75.0) 08/20/18 04:27 Lymph % (Auto) 13.2 % (21.0-51.0) L 08/20/18 04:27 [place] % (Auto) 12.7 % (0.0-13.0) 08/20/18 04:27 Eos % (Auto) 4.8 % (0.9-2.9) H 08/20/18 04:27 Baso % (Auto) 0.4 % (0.2-1.0) 08/20/18 04:27 Neut # (Auto) 3.2 x10^3/uL (2.2-4.8) 08/20/18 04:27 Lymph # (Auto) 0.6 X10^3/uL (1.3-2.9) L 08/20/18 04:27 [place] # (Auto) 0.6 x10^3/uL (0.3-0.8) 08/20/18 04:27 Eos # (Auto) 0.2 x10^3/uL (0.0-0.2) 08/20/18 04:27 Baso # (Auto) 0.0 X10^3/uL (0.0-0.1) 08/20/18 04:27 Absolute Nucleated RBC 0.1 /100WBC 08/20/18 04:27 Sodium 142 mmol/L (136-145) 08/20/18 04:27 Corrected Sodium TNP 08/20/18 04:27 Potassium 3.8 mmol/L (3.5-5.1) 08/20/18 07:55 Chloride 104 mmol/L (98-107) 08/20/18 04:27 Carbon Dioxide 27.0 mmol/L (21-32) 08/20/18 04:27 BUN 15 mg/dL (7-18) 08/20/18 04:27 Creatinine 1.04 mg/dL (0.70-1.30) 08/20/18 04:27 Est GFR (MDRD) Af Amer > 60 (>60) 08/20/18 04:27 Est GFR (MDRD) Non-Af > 60 (>60) 08/20/18 04:27 Glucose 108 mg/dL (65-99) H 08/20/18 04:27 Calcium 8.7 mg/dL (8.5-10.1) 08/20/18 04:27 Corrected Calcium 9.9 mg/dL (8.5-10.1) 08/20/18 04:27 Magnesium 1.7 mg/dL (1.7-2.9) 08/19/18 05:02 Total Bilirubin 0.50 mg/dL (0.2-1.0) 08/20/18 04:27 AST 22 Units/L (15-37) 08/20/18 04:27 ALT 40 Units/L (12-78) 08/20/18 04:27 Alkaline Phosphatase 140 Units/L (46-116) H 08/20/18 04:27 Total Protein 5.9 g/dL (6.4-8.2) L 08/20/18 04:27 Albumin 2.5 g/dL (3.4-5.0) L 08/20/18 04:27 Globulin 3.4 g/dL (2.5-4.5) 08/20/18 04:27 Albumin/Globulin Ratio 0.7 Ratio (1.1-2.1) L 08/20/18 04:27 - Plan (1) Pneumonia Status: Acute Qualifiers: Pneumonia type: due to unspecified organism Laterality: unspecified laterality Lung location: unspecified part of lung Qualified Code(s): J18.9 - Pneumonia, unspecified organism Plan: IV FORTAZ, IV LEVAQUIN, RESPIRATORY TX, SUPPLEMENTAL OXYGEN, CONTINUE TO MONITOR (2) Hyperlipidemia Status: Chronic Qualifiers: Hyperlipidemia type: mixed hyperlipidemia Qualified Code(s): E78.2 - Mixed hyperlipidemia (3) Weakness Status: Acute (4) S/P abdominal aortic aneurysm repair Status: Acute (5) Knee pain Status: Acute Qualifiers: Chronicity: acute Laterality: right Qualified Code(s): M25.561 - Pain in right knee
[2018-08-20] MEDS: RESTORIL CAP 15 MG PO PRN (21:36)
[2018-08-20] MEDS: FLOMAX PO SCH (21:36)
[2018-08-21] MEDS: XOPENEX 1.25 MG/3 ML NEBULE NEB SCH ×4 (00:11→17:07)
[2018-08-21] MEDS: NS 1/2 1000 ML IV 1,000 ML IV SCH ×2 (03:45→20:22)
[2018-08-21] MEDS: PROAMATINE PO SCH ×3 (05:18→21:04)
[2018-08-21 05:29] LABS: BASOPHILS % (AUTO) 0.4 % (0.2-1.0); EOSINOPHILS # (AUTO) 0.3 x10^3/uL (0.0-0.2); EOSINOPHILS % (AUTO) 5.1 % (0.9-2.9); HEMATOCRIT 32.9 % (42.0-54.0); LYMPHOCYTES # (AUTO) 0.5 X10^3/uL (1.3-2.9); LYMPHOCYTES % (AUTO) 8.7 % (21.0-51.0); MEAN CORPUSCULAR HEMOGLOBIN 30.9 pg (27.0-34.0); MEAN CORPUSCULAR HGB CONC 33.4 g/dL (33.0-35.0); MEAN CORPUSCULAR VOLUME 92.8 fL (80.0-100.0); MEAN PLATELET VOLUME 8.5 fL (7.4-11.0); MONOCYTES # (AUTO) 0.6 x10^3/uL (0.3-0.8); MONOCYTES % (AUTO) 10.6 % (0.0-13.0); NEUTROPHILS # (AUTO) 4.6 x10^3/uL (2.2-4.8); NEUTROPHILS % (AUTO) 75.2 % (42.0-75.0); PLATELET COUNT 162 X10^3/uL (150.0-450.0); RED BLOOD COUNT 3.54 X10^6/uL (4.7-6.0); RED CELL DISTRIBUTION WIDTH 18.8 % (11.6-16.5); WHITE BLOOD COUNT 6.1 X10^3/uL (3.6-10.0)
[2018-08-21 05:37] LABS: ALANINE AMINOTRANSFERASE 23 Units/L (12-78); ALBUMIN 2.5 g/dL (3.4-5.0); ALKALINE PHOSPHATASE 120 Units/L (46-116); ASPARTATE AMINO TRANSFERASE 27 Units/L (15-37); BLOOD UREA NITROGEN 9 mg/dL (7-18); CALCIUM 8.7 mg/dL (8.5-10.1); CARBON DIOXIDE 26.6 mmol/L (21-32); CHLORIDE 104 mmol/L (98-107); COR CA(FOR HYPOALB) 9.9 mg/dL (8.5-10.1); CREATININE 1.31 mg/dL (0.70-1.30); SODIUM 141 mmol/L (136-145); eGFR NON BLACK RACES 56 (>60)
--- NOTE | 2018-08-21 05:52 | RAD ---
Chest, one view Indication: Shortness of breath Comparison: 08/20/2018 Findings: The heart is normal in size. There is stable aortic ectasia. There is stable mild atelectasis versus scarring of the bilateral lung bases. No acute infiltrate, significant effusion or pneumothorax is identified. There is no acute osseous abnormality. Impression: No acute chest process or significant interval change. Reported By:
[2018-08-21] MEDS: PEPCID TAB 20 MG PO SCH ×2 (09:06→20:13)
[2018-08-21] MEDS: PROTONIX TAB 40 MG PO SCH ×2 (09:07→20:13)
[2018-08-21] MEDS: FORTAZ or TAZICEF VIAL INJ IVP SCH ×2 (09:07→20:12)
[2018-08-21] MEDS: MUCINEX DM PO SCH ×2 (09:07→20:14)
[2018-08-21] MEDS: ROBITUSSIN DM PO SCH ×4 (09:07→20:12)
[2018-08-21] MEDS: LEVAQUIN PREMIX IV 500 MG 500 MG/100 ML BAG IV SCH (09:08)
[2018-08-21] MEDS: SINGULAIR TAB 10 MG PO SCH (09:08)
[2018-08-21] MEDS: MIRALAX POWDER (255 GRAMS BTL) PO SCH (09:09)
[2018-08-21] MEDS: [UNRECOGNIZED DRUG - OTHER] PO SCH (09:09)
[2018-08-21] MEDS: FLONASE NASAL SPRAY ENOSTRIL SCH (09:09)
[2018-08-21] MEDS ORDERED: PROCALAMINE 3 % 1,000 ML IV SCH (11:00)
[2018-08-21] MEDS: ALBUMIN HUMAN 25%- 100 ML 200 ML IV SCH (12:20)
--- NOTE | 2018-08-21 20:02 | PCM.PROG ---
Progress Note - Progress Note for Day of Date of Exam: 08/21/18 - Subjective Subjective: WAS ADMITTED FOR PNEUMONIA AND RIGHT KNEE PAIN AND SWELLING S/P AAA REPAIR. CTA OF THE AORTA WITH RUNOFF REVEALED A LARGE PERIPHERALLY THROMBOSED RIGHT POITEAL ARTERY ANEURYSM. TODAY, HE IS ALERT AND ORIENTED, LYING IN BED ON MORNING ROUNDS. HE CONTINUES WITH COMPLAINTS OF C/C/C, SOB, KNEE PAIN, AND HEADACHE. ON EXAMINATION, HEART IS REGULAR IN RATE AND RHYTHM. BILATERAL LUNGS CONTINUE WITH SCATTERED WHEEZING. ABDOMEN IS FLAT, SOFT, AND NON-TENDER WITH NORMAL BOWEL SOUNDS NOTED IN ALL QUADRANTS. RIGHT KNEE IS NOTED WITH ERYTHEMA, EDEMA, AND TENDERNESS. HIS VITALS THIS MORNING ARE 98.0-120-20-94%-104/69. LABS WERE OBTAINED. ABNORMAL LAB VALUES INCLUDE THE FOLLOWING: RBC 3.42, HGB 10.6, HCT 31.8, POTASSIUM 3.2, GLUCOSE 108, ALK PHOS 140, TOTAL PROTEIN 5.9, ALBUMIN 2.5. A CHEST XRAY WAS OBTAINED THIS MORNING AND REVEALED: No acute infiltrates. Mild interstitial lung changes. OTHERWISE, WE WILL START FLONASE FOR NASAL CONGESTION AND MUCINEX DM. OTHERWISE, WE WILL CONTINUE WITH CURRENT PLAN OF CARE. WE WILL FOLLOW UP WITH AM LABS AND CONTINUE TO MONITOR. - Past Medical Family Social History Past Med/Fam/Surg Hx: No changes since H&P Allergies: Allergies No Known Drug Allergies Allergy (Verified 08/18/18 17:34) - Review of Systems ROS: No change since H&P - Vital Signs and I&O's Vital Signs: Temperature 97.7 F Pulse Rate [Right Brachial] 110 Pulse Rate 120 Respiratory Rate 20 Blood Pressure [Right Arm] 117/72 Blood Pressure 96/57 O2 Sat by Pulse Oximetry 97 Intake and Output: Intake & Output 08/19/18 08/20/18 08/21/18 08/22/18 11:59 11:59 11:59 11:59 Intake Total 1340 / 1340 1500 / 1500 1330 / 1330 480 / 480 Balance 1340 / 1340 1500 / 1500 1330 / 1330 480 / 480 - Physical Exam Oriented: Normal Eyes: Normal Ear: Normal Nose: Normal Throat: Normal Cardiovascular: Tachycardia, Edema (RIGHT KNEE SWELLING ) : Normal Auscultation: Bowel Sounds: Normal Tenderness: Normal Skin: Red, Tender, Hot Musculoskeletal: Right, Knee, Swelling, Tender Psychiatric: Normal Mood Description: Calm Affect: Normal Speech Pattern: Clear, Appropriate - Laboratory and Diagnostics Result Diagrams: 08/21/18 04:40 08/21/18 04:40 Labs: 08/18/18 18:03 Sputum - Expectorated Sputum Sputum Culture - Final 08/18/18 18:03 Sputum - Expectorated Sputum - Final 08/18/18 17:05 Blood Blood Culture - Preliminary 08/18/18 16:55 Blood Blood Culture - Preliminary Laboratory WBC 6.1 X10^3/uL (3.6-10.0) 08/21/18 04:40 RBC 3.54 X10^6/uL (4.7-6.0) L 08/21/18 04:40 Hgb 11.0 g/dL (13.5-18.0) L 08/21/18 04:40 Hct 32.9 % (42.0-54.0) L 08/21/18 04:40 MCV 92.8 fL (80.0-100.0) 08/21/18 04:40 MCH 30.9 pg (27.0-34.0) 08/21/18 04:40 MCHC 33.4 g/dL (33.0-35.0) 08/21/18 04:40 RDW 18.8 % (11.6-16.5) H 08/21/18 04:40 Plt Count 162 X10^3/uL (150.0-450.0) 08/21/18 04:40 MPV 8.5 fL (7.4-11.0) 08/21/18 04:40 Neut % (Auto) 75.2 % (42.0-75.0) H 08/21/18 04:40 Lymph % (Auto) 8.7 % (21.0-51.0) L 08/21/18 04:40 [place] % (Auto) 10.6 % (0.0-13.0) 08/21/18 04:40 Eos % (Auto) 5.1 % (0.9-2.9) H 08/21/18 04:40 Baso % (Auto) 0.4 % (0.2-1.0) 08/21/18 04:40 Neut # (Auto) 4.6 x10^3/uL (2.2-4.8) 08/21/18 04:40 Lymph # (Auto) 0.5 X10^3/uL (1.3-2.9) L 08/21/18 04:40 [place] # (Auto) 0.6 x10^3/uL (0.3-0.8) 08/21/18 04:40 Eos # (Auto) 0.3 x10^3/uL (0.0-0.2) H 08/21/18 04:40 Baso # (Auto) 0.0 X10^3/uL (0.0-0.1) 08/21/18 04:40 Absolute Nucleated RBC 0.0 /100WBC 08/21/18 04:40 Sodium 141 mmol/L (136-145) 08/21/18 04:40 Corrected Sodium TNP 08/21/18 04:40 Potassium 3.7 mmol/L (3.5-5.1) 08/21/18 04:40 Chloride 104 mmol/L (98-107) 08/21/18 04:40 Carbon Dioxide 26.6 mmol/L (21-32) 08/21/18 04:40 BUN 9 mg/dL (7-18) 08/21/18 04:40 Creatinine 1.31 mg/dL (0.70-1.30) H 08/21/18 04:40 Est GFR (MDRD) Af Amer > 60 (>60) 08/21/18 04:40 Est GFR (MDRD) Non-Af 56 (>60) L 08/21/18 04:40 Glucose 109 mg/dL (65-99) H 08/21/18 04:40 Calcium 8.7 mg/dL (8.5-10.1) 08/21/18 04:40 Corrected Calcium 9.9 mg/dL (8.5-10.1) 08/21/18 04:40 Magnesium 1.7 mg/dL (1.7-2.9) 08/19/18 05:02 Total Bilirubin 0.50 mg/dL (0.2-1.0) 08/21/18 04:40 AST 27 Units/L (15-37) 08/21/18 04:40 ALT 23 Units/L (12-78) 08/21/18 04:40 Alkaline Phosphatase 120 Units/L (46-116) H 08/21/18 04:40 Total Protein 6.0 g/dL (6.4-8.2) L 08/21/18 04:40 Albumin 2.5 g/dL (3.4-5.0) L 08/21/18 04:40 Globulin 3.5 g/dL (2.5-4.5) 08/21/18 04:40 Albumin/Globulin Ratio 0.7 Ratio (1.1-2.1) L 08/21/18 04:40 - Plan (1) Pneumonia Status: Acute Qualifiers: Pneumonia type: due to unspecified organism Laterality: unspecified laterality Lung location: unspecified part of lung Qualified Code(s): J18.9 - Pneumonia, unspecified organism Plan: IV FORTAZ, IV LEVAQUIN, RESPIRATORY TX, SUPPLEMENTAL OXYGEN, CONTINUE TO MONITOR (2) Hyperlipidemia Status: Chronic Qualifiers: Hyperlipidemia type: mixed hyperlipidemia Qualified Code(s): E78.2 - Mixed hyperlipidemia (3) Weakness Status: Acute (4) S/P abdominal aortic aneurysm repair Status: Acute Plan: CTA AORTA WITH RUNOFF TO LOWER EXTREMITIES (5) Knee pain Status: Acute Qualifiers: Chronicity: acute Laterality: right Qualified Code(s): M25.561 - Pain in right knee Plan: VENOUS DOPPLER, CTA AORTA WITH RUNOFF TO EXTREMITIES
[2018-08-21] MEDS: FLOMAX PO SCH (20:13)
[2018-08-21] MEDS ORDERED: NS 1/2 1000 ML IV 1,000 ML IV ONE (20:18)
[2018-08-21] MEDS: RESTORIL CAP 15 MG PO PRN (21:04)
[2018-08-22] MEDS: XOPENEX 1.25 MG/3 ML NEBULE NEB SCH ×3 (00:24→11:36)
[2018-08-22] MEDS: PROAMATINE PO SCH (05:00)
[2018-08-22 05:29] LABS: BASOPHILS % (AUTO) 0.5 % (0.2-1.0); EOSINOPHILS # (AUTO) 0.3 x10^3/uL (0.0-0.2); EOSINOPHILS % (AUTO) 6.3 % (0.9-2.9); HEMATOCRIT 32.2 % (42.0-54.0); HEMOGLOBIN 10.6 g/dL (13.5-18.0); LYMPHOCYTES # (AUTO) 0.6 X10^3/uL (1.3-2.9); LYMPHOCYTES % (AUTO) 12.6 % (21.0-51.0); MEAN CORPUSCULAR HEMOGLOBIN 30.8 pg (27.0-34.0); MEAN CORPUSCULAR VOLUME 93.4 fL (80.0-100.0); MEAN PLATELET VOLUME 8.5 fL (7.4-11.0); MONOCYTES # (AUTO) 0.6 x10^3/uL (0.3-0.8); MONOCYTES % (AUTO) 12.5 % (0.0-13.0); NEUTROPHILS # (AUTO) 3.5 x10^3/uL (2.2-4.8); NEUTROPHILS % (AUTO) 68.1 % (42.0-75.0); PLATELET COUNT 163 X10^3/uL (150.0-450.0); RED BLOOD COUNT 3.44 X10^6/uL (4.7-6.0); RED CELL DISTRIBUTION WIDTH 18.6 % (11.6-16.5); WHITE BLOOD COUNT 5.1 X10^3/uL (3.6-10.0)
[2018-08-22 05:40] LABS: ALANINE AMINOTRANSFERASE 16 Units/L (12-78); ALBUMIN 2.8 g/dL (3.4-5.0); ALKALINE PHOSPHATASE 112 Units/L (46-116); ASPARTATE AMINO TRANSFERASE 20 Units/L (15-37); BLOOD UREA NITROGEN 13 mg/dL (7-18); CALCIUM 8.9 mg/dL (8.5-10.1); CARBON DIOXIDE 30.1 mmol/L (21-32); CHLORIDE 105 mmol/L (98-107); COR CA(FOR HYPOALB) 9.9 mg/dL (8.5-10.1); CREATININE 1.07 mg/dL (0.70-1.30); MAGNESIUM 1.9 mg/dL (1.7-2.9); SODIUM 142 mmol/L (136-145); TOTAL PROTEIN 6.2 g/dL (6.4-8.2); eGFR NON BLACK RACES > 60 (>60)
[2018-08-22] MEDS: NS 1/2 1000 ML IV 1,000 ML IV SCH ×2 (06:30→07:01)
[2018-08-22] MEDS: FORTAZ or TAZICEF VIAL INJ IVP SCH (09:24)
[2018-08-22] MEDS: ALBUMIN HUMAN 25%- 100 ML 200 ML IV SCH (09:24)
[2018-08-22] MEDS: ROBITUSSIN DM PO SCH (09:26)
[2018-08-22] MEDS: MUCINEX DM PO SCH (09:26)
[2018-08-22] MEDS: LEVAQUIN PREMIX IV 500 MG 500 MG/100 ML BAG IV SCH (09:26)
[2018-08-22] MEDS: SINGULAIR TAB 10 MG PO SCH (09:27)
[2018-08-22] MEDS: PROTONIX TAB 40 MG PO SCH (09:27)
[2018-08-22] MEDS: FLONASE NASAL SPRAY ENOSTRIL SCH (09:27)
[2018-08-22] MEDS: PEPCID TAB 20 MG PO SCH (09:27)
[2018-08-22] MEDS: [UNRECOGNIZED DRUG - OTHER] PO SCH (09:28)
[2018-08-22] MEDS: MIRALAX POWDER (255 GRAMS BTL) PO SCH (10:14)
[2018-08-22 14:12] VITALS: BP 85/59
== END 2018-08-22 13:55 | disposition home or self-care (01) | DRG 195 ==
LOC: MED/SURG 16:22
PROVIDERS: ADMIT Internal Medicine; ATTEND Internal Medicine
DX: M25.561 Pain in right knee; R60.0 Localized edema; E78.2 Mixed hyperlipidemia; R51 Headache; I72.4 Aneurysm of artery of lower extremity; R53.1 Weakness; Z98.890 Other specified postprocedural states; R06.02 Shortness of breath; J18.8 Other pneumonia, unspecified organism
CPT/HCPCS: 36415; 71010; 71020; 71045; 71046; 80053; 83735; 84132; 85025; 87040; 87070; 87205; 93005; 93971; 94640; 94760; 97162; 97166; 97530; 97535; A4222; P9047; J0713; J1650; J1956; J2175; J2405; J7620

== ENCOUNTER 2022-05-05 10:28 | Inpatient (IN) ==
[2022-05-05] MEDS: NS 1,000 ML IV 1,000 ML IV SCH (15:08)
[2022-05-05 15:26] LABS: BASOPHILS % (AUTO) 0.2 % (0.2-1.0); EOSINOPHILS # (AUTO) 0.2 x10^3/uL (0.0-0.2); EOSINOPHILS % (AUTO) 1.7 % (0.9-2.9); HEMATOCRIT 44.2 % (42.0-54.0); HEMOGLOBIN 15.3 g/dL (13.5-18.0); LYMPHOCYTES # (AUTO) 0.7 X10^3/uL (1.3-2.9); LYMPHOCYTES % (AUTO) 4.9 % (21.0-51.0); MEAN CORPUSCULAR HEMOGLOBIN 33.2 pg (27.0-34.0); MEAN CORPUSCULAR HGB CONC 34.6 g/dL (33.0-35.0); MEAN CORPUSCULAR VOLUME 95.9 fL (80.0-100.0); MEAN PLATELET VOLUME 8.9 fL (7.4-11.0); MONOCYTES # (AUTO) 1.1 x10^3/uL (0.3-0.8); MONOCYTES % (AUTO) 8.4 % (0.0-13.0); NEUTROPHILS # (AUTO) 11.5 x10^3/uL (2.2-4.8); NEUTROPHILS % (AUTO) 84.8 % (42.0-75.0); RED BLOOD COUNT 4.61 X10^6/uL (4.7-6.0); RED CELL DISTRIBUTION WIDTH 15.4 % (11.6-16.5); WHITE BLOOD COUNT 13.6 X10^3/uL (3.6-10.0)
[2022-05-05 15:46] LABS: ALANINE AMINOTRANSFERASE 122 Units/L (12-78); ALBUMIN 2.7 g/dL (3.4-5.0); ALKALINE PHOSPHATASE 119 Units/L (46-116); ASPARTATE AMINO TRANSFERASE 101 Units/L (15-37); BLOOD UREA NITROGEN 18 mg/dL (7-18); CALCIUM 7.9 mg/dL (8.5-10.1); CHLORIDE 98 mmol/L (98-107); COR CA(FOR HYPOALB) 8.9 mg/dL (8.5-10.1); COR NA(FOR HYPERGLY) 137 mmol/L (136-145); CREATININE 1.33 mg/dL (0.70-1.30); SODIUM 136 mmol/L (136-145); TOTAL PROTEIN 6.6 g/dL (6.4-8.2); eGFR NON BLACK RACES 54 (>60)
--- NOTE | 2022-05-05 16:18 | RAD ---
HISTORYSOBSTUDYCHEST, 1 VIEWCOMPARISONNoneFINDINGSThe lungs are not well inflated. As a result, there are hypoventilatory changes. Linear areas in the lung bases are probably atelectasis. The findings have progressed since the prior CT 04/25/2021.No pleural effusion or pneumothorax.Heart size is normal. Enlarged aortic arch correlates with the aneurysm seen by prior CT.Bones are unremarkable. [EKG leads are noted. ]IMPRESSION1. Progressed basilar atelectasisElectronically signed by: Johann Griffin (May 05, 2022 16:16:57)
[2022-05-05 17:50] LABS: BILIRUBIN,URINE 2+ (NEGATIVE); BLOOD/HEMOGLOBIN,URINE 4+ (NEGATIVE); GLUCOSE, URINE NEGATIVE (NEGATIVE); KETONES,URINE 1+ (NEGATIVE); LEUKOCYTE ESTERASE ,URINE 1+ (NEGATIVE); NITRITES,URINE POSITIVE (NEGATIVE); PROTEIN,URINE 2+ (NEGATIVE); UROBILINOGEN,URINE 3+ (NORMAL)
[2022-05-05 17:53] LABS: APPEARANCE,URINE CLEAR (CLEAR); COLOR,URINE AMBER (YELLOW)
[2022-05-05 18:13] LABS: BACTERIA,URINE TRACE /HPF (NEGATIVE); SQUAMOUS EPITHELIAL CELL,UR RARE /HPF (NEGATIVE)
[2022-05-05] MEDS ORDERED: ROCEPHIN VIAL 1 GRAM 1 G in NS 100 ML IV + SPIKE MINIBAG* 100 ML IV SCH (19:00)
[2022-05-05] MEDS ORDERED: NS 100 ML IV 100 ML ONE (19:55)
[2022-05-05] MEDS: ROCEPHIN 1 GRAM IV PREMIX 1 G/50 ML IV.SOLN. IV SCH (20:00)
[2022-05-05] MEDS: PROAMATINE PO SCH (23:48)
[2022-05-06] MEDS: NS 1,000 ML IV 1,000 ML IV SCH ×2 (03:44→17:27)
[2022-05-06 05:18] LABS: BASOPHILS % (AUTO) 0.2 % (0.2-1.0); EOSINOPHILS # (AUTO) 0.4 x10^3/uL (0.0-0.2); EOSINOPHILS % (AUTO) 3.9 % (0.9-2.9); HEMATOCRIT 40.4 % (42.0-54.0); HEMOGLOBIN 13.9 g/dL (13.5-18.0); LYMPHOCYTES # (AUTO) 0.5 X10^3/uL (1.3-2.9); LYMPHOCYTES % (AUTO) 4.9 % (21.0-51.0); MEAN CORPUSCULAR HEMOGLOBIN 32.6 pg (27.0-34.0); MEAN CORPUSCULAR HGB CONC 34.4 g/dL (33.0-35.0); MEAN CORPUSCULAR VOLUME 94.8 fL (80.0-100.0); MONOCYTES # (AUTO) 0.7 x10^3/uL (0.3-0.8); MONOCYTES % (AUTO) 7.4 % (0.0-13.0); NEUTROPHILS # (AUTO) 8.4 x10^3/uL (2.2-4.8); NEUTROPHILS % (AUTO) 83.6 % (42.0-75.0); RED BLOOD COUNT 4.26 X10^6/uL (4.7-6.0); WHITE BLOOD COUNT 10.1 X10^3/uL (3.6-10.0)
[2022-05-06] MEDS ORDERED: KLOR-CON PO PRN (05:24)
[2022-05-06] MEDS ORDERED: POTASSIUM CHLORIDE LIQ 20 MEQ UDC PO PRN (05:24)
[2022-05-06] MEDS ORDERED: POTASSIUM CHL 40 MEQ/NS 0.45% 500 ML IV PRN (05:24)
[2022-05-06] MEDS ORDERED: MICRO K EXTEN CAP 10 MEQ PO PRN (05:24)
[2022-05-06] MEDS ORDERED: POTASSIUM CHL 60 MEQ/NS 0.45% 500 ML IV PRN (05:24)
[2022-05-06] MEDS ORDERED: K-RIDER 10 MEQ/NS 100 ML 10 MEQ/100 ML BAG IV PRN (05:24)
[2022-05-06 05:30] LABS: ALANINE AMINOTRANSFERASE 108 Units/L (12-78); ALBUMIN 2.5 g/dL (3.4-5.0); ALKALINE PHOSPHATASE 118 Units/L (46-116); ASPARTATE AMINO TRANSFERASE 102 Units/L (15-37); BLOOD UREA NITROGEN 15 mg/dL (7-18); CALCIUM 7.6 mg/dL (8.5-10.1); CARBON DIOXIDE 32.9 mmol/L (21-32); CHLORIDE 101 mmol/L (98-107); COR CA(FOR HYPOALB) 8.8 mg/dL (8.5-10.1); CREATININE 1.15 mg/dL (0.70-1.30); SODIUM 139 mmol/L (136-145); TOTAL PROTEIN 6.1 g/dL (6.4-8.2); eGFR NON BLACK RACES > 60 (>60)
[2022-05-06] MEDS: MAGNESIUM SULFATE 1 GRAM/100 mL PREMIX 1 G/100 ML BAG IV PRN ×2 (06:00→08:43)
--- NOTE | 2022-05-06 10:31 | DR.H&P ---
H&P - History & Physical for Day of: H&P Date: 05/05/22 - Chief Complaint Chief Complaint: ABDOMINAL PAIN, WEAKNESS, AMS, DECREASED ORAL INTAKE - History of Present Illness History of Present Illness: IS A 86 YEAR OLD PATIENT OF OURS. HE PRESENTED TO THE HOSPITAL A DIRECT ADMISSION ON 03/05/22 OBSERVATION STATUS DUE TO UTI, AMS, GENERALIZED WEAKNESS, DECREASED ORAL INTAKE. PATIENT REPORTS THAT HE HAS HAD ABDOMINAL TENDERNESS AND DARK COLORED URINE FOR THE PAST 2-3 DAYS. HE DESCRIBES ABDOMINAL PAIN DIFFUSE, DULL, AND RATED IT A 3/10 ON ARRIVAL. HIS PMH INCLUDES: CAD, HTN, PULMONARY FIBROSIS, GERD, CHRONIC UTIs, BPH, HX OF KIDNEY STONES, ARTHRITIS, AAA REPAIR, HERNIA REPAIR, AND HIP REPLACEMENT. ON ARRIVAL TO THE HOSPITAL, VITALS WERE: 97.9-92-26-91%-104/66. HE USES HOME OXYGEN AT 2 LPM. LABS WERE OBTAINED. WBC 13.6, RBC 4.61, HGB 15.3, HCT 44.2, PLT COUNT 123, SODIUM 136, POTASSIUM 3.4, BUN 18, CREATININE 1.33, GLUCOSE 144, CALCIUM 7.9, TOTAL BILI 5.70, AST 101, ALT 122, ALK PHOS 119, TOTAL PROTEIN 6.6, ALBUMIN 2.7. URINALYSIS REVEALED: WBC 3-5, RBC 10-20, LEUKOCYTES TRACE, BACTERIA TRACE, BLOOD 4+, NITRITE POSITIVE, BILIRUBIN 3+. URINE AND BLOOD CULTURES WERE SET UP. A CHEST XRAY WAS OBTAINED AND REVEALED: PROGRESSED BASILAR ATELECTASIS. HE WAS STARTED ON NORMAL SALINE AT 80 ML/HR, ROCEPHIN 1G IV DAILY, THE POTASSIUM AND MAGNESIUM PROTOCOLS, AND HIS HOME MEDICATIONS WERE RESUMED. WE WILL OBTAIN AN ABDOMEN/PELVIS CT WITH CONTRAST. OTHERWISE, WE PLAN TO FOLLOW-UP WITH AM LABS AND CONTINUE TO MONITOR. TIME SPENT ON CLINICAL ASSESSMENT, REVIWING LABS AND IMAGING, DECISION MAKING, AND DOCUMENTATION GREATER THAN 75 MINUTES. - Past Medical History Past Medical History: Arthritis, Coronary Artery Disease, GERD, Hypertension, Kidney Stones Additional Medical History: PULMONARY FIBROSIS, CHRONIC UTIs, BPH - Past Surgical History Surgical History: AAA Repair Additional Surgical History: HERNIA REPAIR, HIP REPLACEMENT - Family History Family Medical History: Hypertension - Social History Does patient currently use any type of tobacco product: No Have you used tobacco products in the last 12 months: No Type of Tobacco Use: None Does any household member use tobacco: No Alcohol Use: None Drug Use: None - Medications Home Medications: No Known Drug Allergies Allergy (Verified 08/18/18 17:34) CONTINUE taking the following medications apixaban 5 mg tablet (Eliquis) 1 tab PO BID 05/05/22 [History] aspirin 81 mg tablet,delayed release (Ecotrin Low Strength) 81 mg PO QDAY 05/05/22 [History] cetirizine 10 mg capsule (Zyrtec) 10 mg PO QDAY 05/05/22 [History] digoxin 125 mcg (0.125 mg) tablet 1 tab PO QDAY 05/05/22 [History] escitalopram oxalate 20 mg tablet 1 tab PO QDAY 05/05/22 [History] famotidine 40 mg tablet 1 tab PO QDAY 05/05/22 [History] ferrous sulfate 7.5 mg iron/0.5 mL oral syringe (ORAL USE) 7.5 mg PO QDAY 05/05/22 [History] mirabegron 50 mg tablet,extended release 24 hr (Myrbetriq) 1 tab PO QDAY 05/05/22 [History] propranolol 10 mg tablet 1 tab PO BID 05/05/22 [History] trazodone 150 mg tablet 1 tab PO QPM 05/05/22 [History] - Review of Systems Constitutional: Weakness Eyes: No Symptoms Reported ENT: No Symptoms Reported Respiratory: No Symptoms Reported Cardiovascular: No Symptoms Reported Gastrointestinal: Abdominal Pain Genitourinary: Dysuria, Hematuria Musculoskeletal: No Symptoms Reported Skin: No Symptoms Reported Neurological: Weakness - Physical Exam Vital Signs: Temperature 97.7 F Pulse Rate 91 Respiratory Rate 54 Blood Pressure [Right Arm] 85/59 Blood Pressure 104/62 O2 Sat by Pulse Oximetry 92 Oriented: Normal Eyes: Normal Ear: Normal Nose: Normal Throat: Normal Respiratory: Diminished Throughout Cardiovascular: Normal : Dysuria, Hematuria Auscultation: Bowel Sounds: Normal Palpation: Normal Tenderness: Diffuse, Mild Skin: Normal Musculoskeletal: Normal Psychiatric: Normal Mood Description: Calm Affect: Normal Speech Pattern: Clear - Assessment/Plan (1) UTI (urinary tract infection) Qualifiers: Urinary tract infection type: acute cystitis Hematuria presence: with hematuria Qualified Code(s): N30.01 - Acute cystitis with hematuria Status: Acute Plan: ADMIT, NORMAL SALINE AT 80 ML/HR, ROCEPHIN 1G IV DAILY, THE POTASSIUM AND MAGNESIUM PROTOCOLS, AND HIS HOME MEDICATIONS WERE RESUMED. (2) Hyperbilirubinemia Status: Acute (3) Hypokalemia Status: Acute (4) Weakness Status: Acute - Allergies Allergies/Adverse Reactions: Allergies Allergy/AdvReac Type Severity Reaction Status Date / Time No Known Drug Allergies Allergy Verified 08/18/18 17:34
[2022-05-06 11:53] VITALS: BMI 24.3
[2022-05-06] MEDS ORDERED: FLOMAX PO SCH (12:00)
[2022-05-06] MEDS: PROAMATINE PO SCH ×2 (13:15→20:21)
[2022-05-06] MEDS: INDERAL TAB 10 MG PO SCH ×2 (13:16→20:58)
[2022-05-06] MEDS: SINGULAIR TAB 10 MG PO SCH (15:13)
[2022-05-06] MEDS: ZyrTEC TAB 10 MG PO SCH (15:14)
[2022-05-06] MEDS: LANOXIN or DIGITEK PO SCH (15:15)
[2022-05-06] MEDS: K-DUR TAB 20 MEQ PO PRN ×2 (15:16→20:59)
[2022-05-06] MEDS: PEPCID TAB 40 MG PO SCH (15:33)
[2022-05-06] MEDS: ROCEPHIN VIAL 1 GRAM 1 G in NS 100 ML IV 100 ML IV SCH (15:34)
[2022-05-06] MEDS: ROCEPHIN 1 GRAM IV PREMIX 1 G/50 ML IV.SOLN. IV SCH (20:22)
[2022-05-06] MEDS: DESYREL PO SCH (20:59)
[2022-05-06] MEDS: PROTONIX TAB 40 MG PO SCH (20:59)
[2022-05-07] MEDS: RESTORIL CAP 15 MG PO PRN ×2 (02:12→21:09)
[2022-05-07] MEDS ORDERED: TYLENOL 325 MG TAB PO PRN (02:40)
[2022-05-07 05:30] LABS: BASOPHILS % (AUTO) 0.5 % (0.2-1.0); EOSINOPHILS # (AUTO) 0.3 x10^3/uL (0.0-0.2); EOSINOPHILS % (AUTO) 5.4 % (0.9-2.9); HEMATOCRIT 40.1 % (42.0-54.0); HEMOGLOBIN 13.6 g/dL (13.5-18.0); LYMPHOCYTES # (AUTO) 0.6 X10^3/uL (1.3-2.9); LYMPHOCYTES % (AUTO) 10.2 % (21.0-51.0); MEAN CORPUSCULAR HEMOGLOBIN 32.3 pg (27.0-34.0); MEAN CORPUSCULAR HGB CONC 33.9 g/dL (33.0-35.0); MEAN CORPUSCULAR VOLUME 95.4 fL (80.0-100.0); MEAN PLATELET VOLUME 9.3 fL (7.4-11.0); MONOCYTES # (AUTO) 0.6 x10^3/uL (0.3-0.8); MONOCYTES % (AUTO) 10.2 % (0.0-13.0); NEUTROPHILS # (AUTO) 4.5 x10^3/uL (2.2-4.8); NEUTROPHILS % (AUTO) 73.7 % (42.0-75.0); WHITE BLOOD COUNT 6.2 X10^3/uL (3.6-10.0)
[2022-05-07] MEDS: NS 1,000 ML IV 1,000 ML IV SCH ×2 (05:33→20:23)
[2022-05-07 05:50] LABS: ALANINE AMINOTRANSFERASE 105 Units/L (12-78); ALBUMIN 2.4 g/dL (3.4-5.0); ALKALINE PHOSPHATASE 162 Units/L (46-116); ASPARTATE AMINO TRANSFERASE 109 Units/L (15-37); BLOOD UREA NITROGEN 13 mg/dL (7-18); CALCIUM 7.4 mg/dL (8.5-10.1); CARBON DIOXIDE 28.5 mmol/L (21-32); CHLORIDE 101 mmol/L (98-107); COR CA(FOR HYPOALB) 8.7 mg/dL (8.5-10.1); CREATININE 1.09 mg/dL (0.70-1.30); SODIUM 137 mmol/L (136-145); eGFR NON BLACK RACES > 60 (>60)
[2022-05-07] MEDS ORDERED: LEXAPRO ONE (08:27)
[2022-05-07] MEDS ORDERED: FERROUS SULFATE PO SCH (09:00)
[2022-05-07] MEDS: ROCEPHIN VIAL 1 GRAM 1 G in NS 100 ML IV 100 ML IV SCH (09:12)
[2022-05-07] MEDS: SINGULAIR TAB 10 MG PO SCH (09:13)
[2022-05-07] MEDS: LANOXIN or DIGITEK PO SCH (09:13)
[2022-05-07] MEDS: LEXAPRO PO SCH (09:14)
[2022-05-07] MEDS: ZyrTEC TAB 10 MG PO SCH (09:14)
[2022-05-07] MEDS: PROAMATINE PO SCH ×2 (09:15→20:25)
[2022-05-07] MEDS: PEPCID TAB 40 MG PO SCH (09:18)
[2022-05-07] MEDS: ROBITUSSIN DM PO SCH ×4 (09:18→20:24)
[2022-05-07] MEDS: INDERAL TAB 10 MG PO SCH ×2 (09:38→20:25)
[2022-05-07] MEDS: FLOMAX PO SCH (09:38)
[2022-05-07] MEDS: HEMOCYTE-PLUS PO SCH (09:38)
[2022-05-07] MEDS ORDERED: TUSSIONEX PENNKINETIC SUSP PO PRN (17:31)
[2022-05-07] MEDS ORDERED: TAMIFLU PO ONE (19:43)
[2022-05-07] MEDS: TAMIFLU PO SCH (20:24)
[2022-05-07] MEDS: PROTONIX TAB 40 MG PO SCH (20:24)
[2022-05-07] MEDS: DESYREL PO SCH (20:24)
[2022-05-08 05:14] LABS: BASOPHILS % (AUTO) 0.6 % (0.2-1.0); EOSINOPHILS # (AUTO) 0.3 x10^3/uL (0.0-0.2); EOSINOPHILS % (AUTO) 5.3 % (0.9-2.9); HEMATOCRIT 39.2 % (42.0-54.0); HEMOGLOBIN 13.2 g/dL (13.5-18.0); LYMPHOCYTES # (AUTO) 0.7 X10^3/uL (1.3-2.9); LYMPHOCYTES % (AUTO) 13.4 % (21.0-51.0); MEAN CORPUSCULAR HEMOGLOBIN 32.3 pg (27.0-34.0); MEAN CORPUSCULAR HGB CONC 33.7 g/dL (33.0-35.0); MEAN CORPUSCULAR VOLUME 95.9 fL (80.0-100.0); MONOCYTES # (AUTO) 0.6 x10^3/uL (0.3-0.8); MONOCYTES % (AUTO) 12.2 % (0.0-13.0); NEUTROPHILS # (AUTO) 3.5 x10^3/uL (2.2-4.8); NEUTROPHILS % (AUTO) 68.5 % (42.0-75.0); RED BLOOD COUNT 4.09 X10^6/uL (4.7-6.0); RED CELL DISTRIBUTION WIDTH 16.3 % (11.6-16.5); WHITE BLOOD COUNT 5.1 X10^3/uL (3.6-10.0)
[2022-05-08 05:32] LABS: ALANINE AMINOTRANSFERASE 106 Units/L (12-78); ALBUMIN 2.4 g/dL (3.4-5.0); ALKALINE PHOSPHATASE 201 Units/L (46-116); ASPARTATE AMINO TRANSFERASE 119 Units/L (15-37); BLOOD UREA NITROGEN 10 mg/dL (7-18); CALCIUM 7.4 mg/dL (8.5-10.1); CARBON DIOXIDE 32.6 mmol/L (21-32); CHLORIDE 103 mmol/L (98-107); COR CA(FOR HYPOALB) 8.7 mg/dL (8.5-10.1); CREATININE 1.04 mg/dL (0.70-1.30); SODIUM 138 mmol/L (136-145); TOTAL PROTEIN 5.9 g/dL (6.4-8.2); eGFR NON BLACK RACES > 60 (>60)
[2022-05-08] MEDS: ROCEPHIN VIAL 1 GRAM 1 G in NS 100 ML IV 100 ML IV SCH (08:14)
[2022-05-08] MEDS: LANOXIN or DIGITEK PO SCH ×2 (08:24→09:53)
[2022-05-08] MEDS: FLOMAX PO SCH ×2 (08:24→09:50)
[2022-05-08] MEDS: NS 1,000 ML IV 1,000 ML IV SCH ×3 (08:24→21:05)
[2022-05-08] MEDS: LEXAPRO PO SCH ×2 (08:24→09:51)
[2022-05-08] MEDS: INDERAL TAB 10 MG PO SCH ×3 (08:24→20:33)
[2022-05-08] MEDS: HEMOCYTE-PLUS PO SCH ×2 (08:24→09:50)
[2022-05-08] MEDS: PEPCID TAB 40 MG PO SCH ×2 (08:25→09:54)
[2022-05-08] MEDS: TAMIFLU PO SCH ×3 (08:25→20:35)
[2022-05-08] MEDS: PROAMATINE PO SCH ×3 (08:25→20:40)
[2022-05-08] MEDS: SINGULAIR TAB 10 MG PO SCH ×2 (08:25→09:51)
[2022-05-08] MEDS: ZyrTEC TAB 10 MG PO SCH ×2 (08:25→09:52)
[2022-05-08] MEDS: ROBITUSSIN DM PO SCH ×5 (08:25→20:32)
[2022-05-08] MEDS ORDERED: LEXAPRO ONE (09:40)
[2022-05-08] MEDS: MAGNESIUM SULFATE 1 GRAM/100 mL PREMIX 1 G/100 ML BAG IV PRN ×2 (10:10→11:19)
--- NOTE | 2022-05-08 13:37 | US ---
LIVERHISTORY: Increased LFTsComparison: NoneTechnique: Multiple schreiber scale and color flow Doppler images of the abdomen were obtained.Findings:Overall study is limited by overlying bowel gas. The liver increased in echogenicity. No focal mass. No intrahepatic bile duct dilatation. Gallstones present.No pericholecystic fluid or gallbladder wall thickening. The technologist did not report a positive sonographic Miller's sign. The common bile duct measures 4 mm.IMPRESSION:1.Cholelithiasis without cholecystitis.2. Hepatic steatosis.Electronically signed by: LETY NAM (May 08, 2022 13:36:27)
[2022-05-08] MEDS: PROTONIX TAB 40 MG PO SCH (20:34)
[2022-05-08] MEDS: RESTORIL CAP 15 MG PO PRN (20:35)
[2022-05-08] MEDS: DESYREL PO SCH (20:36)
[2022-05-09] MEDS: NS 1,000 ML IV 1,000 ML IV SCH ×3 (04:53→19:17)
[2022-05-09 04:59] LABS: BASOPHILS # (AUTO) 0.1 X10^3/uL (0.0-0.1); BASOPHILS % (AUTO) 1.5 % (0.2-1.0); EOSINOPHILS # (AUTO) 0.3 x10^3/uL (0.0-0.2); EOSINOPHILS % (AUTO) 4.3 % (0.9-2.9); HEMATOCRIT 39.6 % (42.0-54.0); HEMOGLOBIN 13.5 g/dL (13.5-18.0); LYMPHOCYTES % (AUTO) 16.3 % (21.0-51.0); MEAN CORPUSCULAR HEMOGLOBIN 32.5 pg (27.0-34.0); MEAN CORPUSCULAR VOLUME 95.5 fL (80.0-100.0); MEAN PLATELET VOLUME 8.9 fL (7.4-11.0); MONOCYTES # (AUTO) 0.6 x10^3/uL (0.3-0.8); MONOCYTES % (AUTO) 10.3 % (0.0-13.0); NEUTROPHILS # (AUTO) 4.1 x10^3/uL (2.2-4.8); NEUTROPHILS % (AUTO) 67.6 % (42.0-75.0); RED BLOOD COUNT 4.15 X10^6/uL (4.7-6.0); RED CELL DISTRIBUTION WIDTH 15.8 % (11.6-16.5); WHITE BLOOD COUNT 6.1 X10^3/uL (3.6-10.0)
[2022-05-09 05:13] LABS: ALANINE AMINOTRANSFERASE 104 Units/L (12-78); ALBUMIN 2.3 g/dL (3.4-5.0); ALKALINE PHOSPHATASE 230 Units/L (46-116); ASPARTATE AMINO TRANSFERASE 110 Units/L (15-37); BLOOD UREA NITROGEN 10 mg/dL (7-18); CALCIUM 7.5 mg/dL (8.5-10.1); CARBON DIOXIDE 33.2 mmol/L (21-32); CHLORIDE 104 mmol/L (98-107); COR CA(FOR HYPOALB) 8.9 mg/dL (8.5-10.1); SODIUM 140 mmol/L (136-145); TOTAL PROTEIN 5.9 g/dL (6.4-8.2); eGFR NON BLACK RACES > 60 (>60)
[2022-05-09] MEDS ORDERED: LEXAPRO ONE (08:32)
[2022-05-09] MEDS: FLOMAX PO SCH (08:38)
[2022-05-09] MEDS: HEMOCYTE-PLUS PO SCH (08:38)
[2022-05-09] MEDS: LANOXIN or DIGITEK PO SCH (08:39)
[2022-05-09] MEDS: INDERAL TAB 10 MG PO SCH ×2 (08:39→20:10)
[2022-05-09] MEDS: LEXAPRO PO SCH (08:39)
[2022-05-09] MEDS: SINGULAIR TAB 10 MG PO SCH (08:40)
[2022-05-09] MEDS: ROCEPHIN VIAL 1 GRAM 1 G in NS 100 ML IV 100 ML IV SCH (08:40)
[2022-05-09] MEDS: PEPCID TAB 40 MG PO SCH (08:40)
[2022-05-09] MEDS: ROBITUSSIN DM PO SCH ×4 (08:40→20:04)
[2022-05-09] MEDS: TAMIFLU PO SCH ×2 (08:41→20:04)
[2022-05-09] MEDS: ZyrTEC TAB 10 MG PO SCH (08:41)
[2022-05-09] MEDS: PROAMATINE PO SCH ×2 (09:44→20:05)
--- NOTE | 2022-05-09 11:41 | PCM.PROG ---
Progress Note - Progress Note for Day of Date of Exam: 05/07/22 - Subjective Subjective: WAS ADMITTED FOR TREATMENT OF UTI, HYPERBILIRUBINEMIA, ELEVATED LFTs, HYPOKALEMIA, WEAKNESS, AND ABDOMINAL PAIN. TODAY, HE IS ALERT AND ORIENTED, LYING IN BED ON MORNING ROUNDS. HE CONTINUES WITH COMPLAINTS OF DIFFUSE ABDOMIAL PAIN, DARK COLORED URINE, AND WEAKNESS TODAY. HE DOES ADMIT TO SLIGHT IMPROVEMENT IN PAIN SINCE YESTERDAY. ADDITIONALLY, PATIENT COMPLAINS OF SINUS CONGESTION AND COUGH. HE REPORTS THAT HIS SPOUSED TESTED POSITIVE FOR INFLUENZA A TODAY. ON EXAMINATION, HEART IS REGULAR IN RATE AND RHYTHM. BILATERAL LUNGS ARE NOTED WITH DIMINISHED LUNG SOUNDS THROUGHOUT. ABDOMEN IS ROUND, SOFT, AND NOTED WITH DIFFUSE TENDERNESS. NORMAL BOWEL SOUNDS ARE NOTED IN ALL QUADRANTS. HIS VITALS THIS MORNING ARE: 98.6-73-22-91%-102/58. LABS WERE OBTAINED. WBC 6.2, RBC 4.20, HGB 13.6, HCT 40.1, PLT COUNT 115, SODIUM 137, POTASSIUM 4.0, CHLORIDE 101, CARBON DIOXIDE 28.5, BUN 13, CREATININE 1.09, GLUCOSE 94, CALCIUM 7.4, MAGNESIUM 2.0, TOTAL BILI 4.00, AST 109, ALT 105, ALK PHOS 162, TOTAL PROTEIN 6.0, ALBUMIN 2.4. WE OBTAINED AN ABDOMEN/PELVIS CT WITH CONTRAST YESTERDAY. 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 CHOLELITHIASIS, CAD, BILATERAL DEPENDENT ATELECTASIS, BILATERAL NON-OBSTRUCTING RENAL CALCULI, BILATERAL RENAL CYSTIC LESIONS, COLONIC DIVERTICULOSIS, SEVERE DEGENERATIVE CHANGES RIGHT HIP AND SPINE. INDETERMINATE BILATERAL ADRENAL NODULAR LESIONS. HE IS CURRENTLY RECEIVING NORMAL SALINE AT 80 ML/HR, ROCEPHIN 1G IV DAILY, THE POTASSIUM AND MAGNESIUM PROTOCOLS, AND HIS HOME MEDICATIONS WERE RESUMED. TODAY, WE WILL ADD ROBITUSSIN DM 10ML QID, TAMIFLU 75MG PO BID, AND ORDER A HEPATITIS PANEL. OTHERWISE, WE WILL CONTINUE WITH CURRENT PLAN OF CARE TODAY. HE IS SCHEDULED TO HAVE A LIVER ULTRASOUND TOMORROW. WE WILL FOLLOW-UP WITH AM LABS AND CONTINUE TO MONITOR. TIME SPENT ON CLINICAL ASSESSMENT, REVIWING LABS AND IMAGING, DECISION MAKING, AND DOCUMENTATION GREATER THAN 45 MINUTES. - Past Medical Family Social History Past Med/Fam/Surg Hx: No changes since H&P Allergies: Allergies No Known Drug Allergies Allergy (Verified 08/18/18 17:34) - Review of Systems ROS: No change since H&P - Vital Signs and I&O's Vital Signs: Temperature 98.3 F Pulse Rate 67 Respiratory Rate 25 Blood Pressure [Right Arm] 85/59 Blood Pressure 115/72 O2 Sat by Pulse Oximetry 92 Intake and Output: Intake & Output 05/06/22 05/07/22 05/08/22 05/09/22 11:59 11:59 11:59 11:59 Intake Total 1290 / 1290 2873 / 2873 2496 / 2496 2950 / 2950 Output Total 200 / 200 600 / 600 400 / 400 700 / 700 Balance 1090 / 1090 2273 / 2273 2096 / 2096 2250 / 2250 - Physical Exam Oriented: Normal Eyes: Normal Ear: Normal Nose: Other (NASAL CONGESTION ) Throat: Normal Respiratory: Diminished Cardiovascular: Normal : Dysuria, Hematuria Auscultation: Bowel Sounds: Normal Palpation: Normal Tenderness: Diffuse, Mild Skin: Normal Musculoskeletal: Normal Psychiatric: Normal Mood Description: Calm Affect: Normal Speech Pattern: Clear, Appropriate - Laboratory and Diagnostics Result Diagrams: 05/09/22 04:40 05/09/22 04:40 Labs: 05/05/22 15:00 Blood Blood Culture - Preliminary 05/05/22 14:53 Blood Blood Culture - Preliminary 05/05/22 17:30 Urine,Clean Catch Urine Culture - Final Laboratory WBC 6.1 X10^3/uL (3.6-10.0) 05/09/22 04:40 RBC 4.15 X10^6/uL (4.7-6.0) L 05/09/22 04:40 Hgb 13.5 g/dL (13.5-18.0) 05/09/22 04:40 Hct 39.6 % (42.0-54.0) L 05/09/22 04:40 MCV 95.5 fL (80.0-100.0) 05/09/22 04:40 MCH 32.5 pg (27.0-34.0) 05/09/22 04:40 MCHC 34.0 g/dL (33.0-35.0) 05/09/22 04:40 RDW 15.8 % (11.6-16.5) 05/09/22 04:40 Plt Count 121 X10^3/uL (150.0-450.0) L 05/09/22 04:40 MPV 8.9 fL (7.4-11.0) 05/09/22 04:40 Neut % (Auto) 67.6 % (42.0-75.0) 05/09/22 04:40 Lymph % (Auto) 16.3 % (21.0-51.0) L 05/09/22 04:40 [place] % (Auto) 10.3 % (0.0-13.0) 05/09/22 04:40 Eos % (Auto) 4.3 % (0.9-2.9) H 05/09/22 04:40 Baso % (Auto) 1.5 % (0.2-1.0) H 05/09/22 04:40 Neut # (Auto) 4.1 x10^3/uL (2.2-4.8) 05/09/22 04:40 Lymph # (Auto) 1.0 X10^3/uL (1.3-2.9) L 05/09/22 04:40 [place] # (Auto) 0.6 x10^3/uL (0.3-0.8) 05/09/22 04:40 Eos # (Auto) 0.3 x10^3/uL (0.0-0.2) H 05/09/22 04:40 Baso # (Auto) 0.1 X10^3/uL (0.0-0.1) 05/09/22 04:40 Absolute Nucleated RBC 0.0 /100WBC 05/09/22 04:40 Sodium 140 mmol/L (136-145) 05/09/22 04:40 Corrected Sodium TNP 05/09/22 04:40 Potassium 3.7 mmol/L (3.5-5.1) 05/09/22 04:40 Chloride 104 mmol/L (98-107) 05/09/22 04:40 Carbon Dioxide 33.2 mmol/L (21-32) H 05/09/22 04:40 BUN 10 mg/dL (7-18) 05/09/22 04:40 Creatinine 1.00 mg/dL (0.70-1.30) 05/09/22 04:40 Est GFR (MDRD) Af Amer > 60 (>60) 05/09/22 04:40 Est GFR (MDRD) Non-Af > 60 (>60) 05/09/22 04:40 Glucose 85 mg/dL (65-99) 05/09/22 04:40 Calcium 7.5 mg/dL (8.5-10.1) L 05/09/22 04:40 Corrected Calcium 8.9 mg/dL (8.5-10.1) 05/09/22 04:40 Magnesium 2.0 mg/dL (1.7-2.9) 05/09/22 04:40 Total Bilirubin 4.20 mg/dL (0.2-1.0) H 05/09/22 04:40 AST 110 Units/L (15-37) H 05/09/22 04:40 ALT 104 Units/L (12-78) H 05/09/22 04:40 Alkaline Phosphatase 230 Units/L (46-116) H 05/09/22 04:40 Total Protein 5.9 g/dL (6.4-8.2) L 05/09/22 04:40 Albumin 2.3 g/dL (3.4-5.0) L 05/09/22 04:40 Globulin 3.6 g/dL (2.5-4.5) 05/09/22 04:40 Albumin/Globulin Ratio 0.6 Ratio (1.1-2.1) L 05/09/22 04:40 Specimen Type Clean catch urine 05/05/22 17: Urine Color [place] (YELLOW) 05/05/22 17: Urine Appearance Clear (CLEAR) 05/05/22 17:30 Urine pH 6.0 (5.0 - 8.0) 05/05/22 17:30 Ur Specific [place] 1.020 (1.000-1.030) 05/05/22 17: Urine Protein 2+ (NEGATIVE) 05/05/22 17: Urine Glucose (UA) Negative (NEGATIVE) 05/05/22 17: Urine Ketones 1+ (NEGATIVE) 05/05/22 17: Urine Blood 4+ (NEGATIVE) 05/05/22 17: Urine Nitrite Positive (NEGATIVE) 05/05/22 17: Urine Bilirubin 2+ (NEGATIVE) 05/05/22 17:30 Urine Urobilinogen 3+ (NORMAL) 05/05/22 17:30 Ur Leukocyte Esterase 1+ (NEGATIVE) 05/05/22 17:30 Urine RBC 10-20 /HPF (0-3) A 05/05/22 17:30 Urine WBC 3-5 /HPF (0-5) 05/05/22 17:30 Ur Squamous Epith Cells Rare /HPF (NEGATIVE) 05/05/22 17:30 Urine Bacteria Trace /HPF (NEGATIVE) 05/05/22 17:30 Ur Culture Indicated? Yes/culture set up 05/05/22 17:30 Digoxin 0.83 ng/mL (0.9-2) L 05/06/22 04:15 SARS-CoV-2 (PCR) Negative (NEGATIVE) 05/07/22 12:49 Influenza Type A (PCR) Positive (NEGATIVE) A 05/07/22 12:49 Influenza Type B (PCR) Negative (NEGATIVE) 05/07/22 12:49 RSV (PCR) Negative (NEGATIVE) 05/07/22 12:49 - Plan (1) UTI (urinary tract infection) Status: Acute Qualifiers: Urinary tract infection type: acute cystitis Hematuria presence: with hematuria Qualified Code(s): N30.01 - Acute cystitis with hematuria Plan: NORMAL SALINE AT 80 ML/HR, ROCEPHIN 1G IV DAILY, TAMIFLU 75MG PO BID, ROBITUSSIN DM 10ML PO QID, THE POTASSIUM AND MAGNESIUM PROTOCOLS, AND HIS HOME MEDICATIONS WERE RESUMED. (2) Influenza Status: Acute (3) Hyperbilirubinemia Status: Acute (4) Hypokalemia Status: Acute (5) Weakness Status: Acute
--- NOTE | 2022-05-09 11:54 | PCM.PROG ---
Progress Note - Progress Note for Day of Date of Exam: 05/08/22 - Subjective Subjective: IS BEING TREATED FOR UTI, INFLUENZA, HYPERBILIRUBINEMIA, ELEVATED LFTs, HYPOKALEMIA, WEAKNESS, AND ABDOMINAL PAIN. TODAY, HE IS ALERT AND ORIENTED, LYING IN BED ON MORNING ROUNDS. HE CONTINUES WITH COMPLAINTS OF SINUS CONGESTION, DARK COLORED URINE, AND WEAKNESS TODAY. HE DOES ADMIT TO SLIGHT IMPROVEMENT SINCE YESTERDAY. HE DENIES ABDOMINAL PAIN TODAY. ON EXAMINATION, HEART IS REGULAR IN RATE AND RHYTHM. BILATERAL LUNGS ARE NOTED WITH DIMINISHED LUNG SOUNDS THROUGHOUT. ABDOMEN IS ROUND, SOFT, AND NON-TENDER. NORMAL BOWEL SOUNDS ARE NOTED IN ALL QUADRANTS. HIS VITALS THIS MORNING ARE: 99.6-80-18-96%-123/67. LABS WERE OBTAINED. WBC 5.1, RBC 4.09, HGB 13.2, HCT 39.2, PLT COUNT 116, SODIUM 138, POTASSIUM 3.5, CHLORIDE 103, CARBON DIOXIDE 32.6, BUN 10, CREATININE 1.04, GLUCOSE 86, TOTAL BILI 3.90, AST 119, ALT 106, ALK PHOS 201, TOTAL PROTEIN 5.9, ALBUMIN 2.4. URINE AND BLOOD CULTURES ARE PENDING. WE OBTAINED AN ABDOMEN/PELVIS CT WITH CONTRAST YESTERDAY. IT REVEALED: CHOLELITHIASIS WITHOUT CHOLECYSTITIS, HEMATIC STEATOSIS. HE IS CURRENTLY RECEIVING NORMAL SALINE AT 80 ML/HR, ROCEPHIN 1G IV DAILY, TAMIFLU 75MG PO BID, ROBITUSSIN DM 10ML QID, THE POTASSIUM AND MAGNESIUM PROTOCOLS, AND HIS HOME MEDICATIONS WERE RESUMED. WE WILL CONTINUE WITH CURRENT PLAN OF CARE TODAY. WE WILL FOLLOW-UP WITH AM LABS AND CONTINUE TO MONITOR. TIME SPENT ON CLINICAL ASSESSMENT, REVIWING LABS AND IMAGING, DECISION MAKING, AND DOCUMENTATION GREATER THAN 45 MINUTES. - Past Medical Family Social History Past Med/Fam/Surg Hx: No changes since H&P Allergies: Allergies No Known Drug Allergies Allergy (Verified 08/18/18 17:34) - Review of Systems ROS: No change since H&P - Vital Signs and I&O's Vital Signs: Temperature 98.3 F Pulse Rate 67 Respiratory Rate 25 Blood Pressure [Right Arm] 85/59 Blood Pressure 115/72 O2 Sat by Pulse Oximetry 92 Intake and Output: Intake & Output 05/06/22 05/07/22 05/08/22 05/09/22 11:59 11:59 11:59 11:59 Intake Total 1290 / 1290 2873 / 2873 2496 / 2496 2950 / 2950 Output Total 200 / 200 600 / 600 400 / 400 700 / 700 Balance 1090 / 1090 2273 / 2273 2096 / 2096 2250 / 2250 - Physical Exam Oriented: Normal Eyes: Normal Ear: Normal Nose: Other (NASAL CONGESTION ) Throat: Normal Respiratory: Diminished Cardiovascular: Normal : Dysuria, Hematuria Auscultation: Bowel Sounds: Normal Palpation: Normal Tenderness: Diffuse, Mild Skin: Normal Musculoskeletal: Normal Psychiatric: Normal Mood Description: Calm Affect: Normal Speech Pattern: Clear, Appropriate - Laboratory and Diagnostics Result Diagrams: 05/09/22 04:40 05/09/22 04:40 Labs: 05/05/22 15:00 Blood Blood Culture - Preliminary 05/05/22 14:53 Blood Blood Culture - Preliminary 05/05/22 17:30 Urine,Clean Catch Urine Culture - Final Laboratory WBC 6.1 X10^3/uL (3.6-10.0) 05/09/22 04:40 RBC 4.15 X10^6/uL (4.7-6.0) L 05/09/22 04:40 Hgb 13.5 g/dL (13.5-18.0) 05/09/22 04:40 Hct 39.6 % (42.0-54.0) L 05/09/22 04:40 MCV 95.5 fL (80.0-100.0) 05/09/22 04:40 MCH 32.5 pg (27.0-34.0) 05/09/22 04:40 MCHC 34.0 g/dL (33.0-35.0) 05/09/22 04:40 RDW 15.8 % (11.6-16.5) 05/09/22 04:40 Plt Count 121 X10^3/uL (150.0-450.0) L 05/09/22 04:40 MPV 8.9 fL (7.4-11.0) 05/09/22 04:40 Neut % (Auto) 67.6 % (42.0-75.0) 05/09/22 04:40 Lymph % (Auto) 16.3 % (21.0-51.0) L 05/09/22 04:40 [place] % (Auto) 10.3 % (0.0-13.0) 05/09/22 04:40 Eos % (Auto) 4.3 % (0.9-2.9) H 05/09/22 04:40 Baso % (Auto) 1.5 % (0.2-1.0) H 05/09/22 04:40 Neut # (Auto) 4.1 x10^3/uL (2.2-4.8) 05/09/22 04:40 Lymph # (Auto) 1.0 X10^3/uL (1.3-2.9) L 05/09/22 04:40 [place] # (Auto) 0.6 x10^3/uL (0.3-0.8) 05/09/22 04:40 Eos # (Auto) 0.3 x10^3/uL (0.0-0.2) H 05/09/22 04:40 Baso # (Auto) 0.1 X10^3/uL (0.0-0.1) 05/09/22 04:40 Absolute Nucleated RBC 0.0 /100WBC 05/09/22 04:40 Sodium 140 mmol/L (136-145) 05/09/22 04:40 Corrected Sodium TNP 05/09/22 04:40 Potassium 3.7 mmol/L (3.5-5.1) 05/09/22 04:40 Chloride 104 mmol/L (98-107) 05/09/22 04:40 Carbon Dioxide 33.2 mmol/L (21-32) H 05/09/22 04:40 BUN 10 mg/dL (7-18) 05/09/22 04:40 Creatinine 1.00 mg/dL (0.70-1.30) 05/09/22 04:40 Est GFR (MDRD) Af Amer > 60 (>60) 05/09/22 04:40 Est GFR (MDRD) Non-Af > 60 (>60) 05/09/22 04:40 Glucose 85 mg/dL (65-99) 05/09/22 04:40 Calcium 7.5 mg/dL (8.5-10.1) L 05/09/22 04:40 Corrected Calcium 8.9 mg/dL (8.5-10.1) 05/09/22 04:40 Magnesium 2.0 mg/dL (1.7-2.9) 05/09/22 04:40 Total Bilirubin 4.20 mg/dL (0.2-1.0) H 05/09/22 04:40 AST 110 Units/L (15-37) H 05/09/22 04:40 ALT 104 Units/L (12-78) H 05/09/22 04:40 Alkaline Phosphatase 230 Units/L (46-116) H 05/09/22 04:40 Total Protein 5.9 g/dL (6.4-8.2) L 05/09/22 04:40 Albumin 2.3 g/dL (3.4-5.0) L 05/09/22 04:40 Globulin 3.6 g/dL (2.5-4.5) 05/09/22 04:40 Albumin/Globulin Ratio 0.6 Ratio (1.1-2.1) L 05/09/22 04:40 Specimen Type Clean catch urine 05/05/22 17:30 Urine Color [place] (YELLOW) 05/05/22 17: Urine Appearance Clear (CLEAR) 05/05/22 17:30 Urine pH 6.0 (5.0 - 8.0) 05/05/22 17:30 Ur Specific [place] 1.020 (1.000-1.030) 05/05/22 17:30 Urine Protein 2+ (NEGATIVE) 05/05/22 17:30 Urine Glucose (UA) Negative (NEGATIVE) 05/05/22 17: Urine Ketones 1+ (NEGATIVE) 05/05/22 17: Urine Blood 4+ (NEGATIVE) 05/05/22 17: Urine Nitrite Positive (NEGATIVE) 05/05/22 17: Urine Bilirubin 2+ (NEGATIVE) 05/05/22 17: Urine Urobilinogen 3+ (NORMAL) 05/05/22 17: Ur Leukocyte Esterase 1+ (NEGATIVE) 05/05/22 17:30 Urine RBC 10-20 /HPF (0-3) A 05/05/22 17:30 Urine WBC 3-5 /HPF (0-5) 05/05/22 17:30 Ur Squamous Epith Cells Rare /HPF (NEGATIVE) 05/05/22 17:30 Urine Bacteria Trace /HPF (NEGATIVE) 05/05/22 17:30 Ur Culture Indicated? Yes/culture set up 05/05/22 17:30 Digoxin 0.83 ng/mL (0.9-2) L 05/06/22 04:15 SARS-CoV-2 (PCR) Negative (NEGATIVE) 05/07/22 12:49 Influenza Type A (PCR) Positive (NEGATIVE) A 05/07/22 12:49 Influenza Type B (PCR) Negative (NEGATIVE) 05/07/22 12:49 RSV (PCR) Negative (NEGATIVE) 05/07/22 12:49 - Plan (1) UTI (urinary tract infection) Status: Acute Qualifiers: Urinary tract infection type: acute cystitis Hematuria presence: with hematuria Qualified Code(s): N30.01 - Acute cystitis with hematuria Plan: NORMAL SALINE AT 80 ML/HR, ROCEPHIN 1G IV DAILY, TAMIFLU 75MG PO BID, ROBITUSSIN DM 10ML PO QID, THE POTASSIUM AND MAGNESIUM PROTOCOLS, AND HIS HOME MEDICATIONS WERE RESUMED. (2) Influenza Status: Acute (3) Cholelithiasis Status: Acute Qualifiers: Cholelithiasis location: gallbladder Cholecystitis presence: without cholecystitis (4) Elevated LFTs Status: Acute (5) Hyperbilirubinemia Status: Acute (6) Hypokalemia Status: Acute (7) Weakness Status: Acute
--- NOTE | 2022-05-09 11:58 | RAD ---
CHEST, 1 VIEWHISTORY: SOBStudy: Single view of the chest.Comparison:May 05, 2022Findings:The cardiomediastinal silhouette is normal. No change in the appearance of bilateral interstitial prominence without consolidation or effusion. Aortic arch is again enlarged. Osseous structures demonstrate no acute abnormality.IMPRESSION:1. No change from prior.Electronically signed by: LETY NAM (May 09, 2022 11:56:45)
[2022-05-09] MEDS ORDERED: ZOFRAN INJ 4 MG VIAL IVP PRN (13:20)
[2022-05-09] MEDS: DESYREL PO SCH (20:02)
[2022-05-09] MEDS: PROTONIX TAB 40 MG PO SCH (20:03)
[2022-05-09] MEDS: RESTORIL CAP 15 MG PO PRN (20:04)
[2022-05-10] MEDS: NS 1,000 ML IV 1,000 ML IV SCH ×4 (00:38→20:22)
[2022-05-10 05:19] LABS: BASOPHILS # (AUTO) 0.1 X10^3/uL (0.0-0.1); BASOPHILS % (AUTO) 0.9 % (0.2-1.0); EOSINOPHILS # (AUTO) 0.3 x10^3/uL (0.0-0.2); EOSINOPHILS % (AUTO) 4.8 % (0.9-2.9); HEMATOCRIT 38.9 % (42.0-54.0); HEMOGLOBIN 13.1 g/dL (13.5-18.0); LYMPHOCYTES # (AUTO) 0.9 X10^3/uL (1.3-2.9); LYMPHOCYTES % (AUTO) 14.8 % (21.0-51.0); MEAN CORPUSCULAR HEMOGLOBIN 32.3 pg (27.0-34.0); MEAN CORPUSCULAR HGB CONC 33.6 g/dL (33.0-35.0); MEAN CORPUSCULAR VOLUME 96.1 fL (80.0-100.0); MEAN PLATELET VOLUME 9.5 fL (7.4-11.0); MONOCYTES # (AUTO) 0.5 x10^3/uL (0.3-0.8); MONOCYTES % (AUTO) 7.9 % (0.0-13.0); NEUTROPHILS # (AUTO) 4.2 x10^3/uL (2.2-4.8); NEUTROPHILS % (AUTO) 71.6 % (42.0-75.0); RED BLOOD COUNT 4.05 X10^6/uL (4.7-6.0); RED CELL DISTRIBUTION WIDTH 16.2 % (11.6-16.5); WHITE BLOOD COUNT 5.9 X10^3/uL (3.6-10.0)
[2022-05-10 05:35] LABS: ALANINE AMINOTRANSFERASE 98 Units/L (12-78); ALBUMIN 2.3 g/dL (3.4-5.0); ALKALINE PHOSPHATASE 240 Units/L (46-116); ASPARTATE AMINO TRANSFERASE 100 Units/L (15-37); BLOOD UREA NITROGEN 9 mg/dL (7-18); CALCIUM 7.3 mg/dL (8.5-10.1); CARBON DIOXIDE 33.1 mmol/L (21-32); CHLORIDE 103 mmol/L (98-107); COR CA(FOR HYPOALB) 8.7 mg/dL (8.5-10.1); CREATININE 0.99 mg/dL (0.70-1.30); SODIUM 139 mmol/L (136-145); TOTAL PROTEIN 5.8 g/dL (6.4-8.2); eGFR NON BLACK RACES > 60 (>60)
[2022-05-10 06:16] LABS: HEPATITIS B SURFACE ANTIGEN Negative (Negative)
--- NOTE | 2022-05-10 07:45 | RAD ---
HISTORYSOBSTUDYCHEST, 1 VIEWCOMPARISONOne day prior.TECHNIQUEAP view of the chestFINDINGSThe cardiac and mediastinal contours appear stable. Enlarged aortic arch. No consolidation or segmental lung collapse.blunted costophrenic sulci bilaterally. No pneumothorax.IMPRESSIONNo significant change compared to prior radiograph.Blunted costophrenic sulci can be seen with small pleural effusions or pleuro-parynchemal scarring.Enlarged aortic archElectronically signed by: Freddie Mcgovern (May 10, 2022 07:44:09)
[2022-05-10] MEDS ORDERED: LEXAPRO ONE (08:23)
[2022-05-10] MEDS: ROBITUSSIN DM PO SCH ×4 (08:34→20:23)
[2022-05-10] MEDS: ZyrTEC TAB 10 MG PO SCH (08:35)
[2022-05-10] MEDS: FLOMAX PO SCH (08:35)
[2022-05-10] MEDS: HEMOCYTE-PLUS PO SCH (08:35)
[2022-05-10] MEDS: LEXAPRO PO SCH (08:35)
[2022-05-10] MEDS: INDERAL TAB 10 MG PO SCH ×2 (08:35→20:23)
[2022-05-10] MEDS: SINGULAIR TAB 10 MG PO SCH (08:35)
[2022-05-10] MEDS: TAMIFLU PO SCH ×2 (08:36→20:23)
[2022-05-10] MEDS: ROCEPHIN VIAL 1 GRAM 1 G in NS 100 ML IV 100 ML IV SCH (08:36)
[2022-05-10] MEDS: PEPCID TAB 40 MG PO SCH (08:47)
[2022-05-10] MEDS: PROAMATINE PO SCH ×2 (08:47→20:25)
[2022-05-10] MEDS: LANOXIN or DIGITEK PO SCH (08:47)
--- NOTE | 2022-05-10 10:03 | MRI ---
HISTORYRULE OUT BILE DUCT OBSTRUCTION - BVP DUE TO PATIENT CONDITIONSTUDYMRCPCOMPARISONCT chest dated 04/25/2021TECHNIQUEMultiplanar multi sequences images through the abdomen were performed without contrast MRCP with 3D MPGR images was performed.FINDINGSThere is diffuse fatty liver, the liver measures in length approximately 20.9 centimeters and the spleen 13 centimeters. There is mild thickening of the right adrenal gland with multiple cystic changes, there is also a small cystic changes in the small left adrenal gland.There are multiple cyst formation in the kidneys bilaterally, no totally included in the field of view. The pancreas demonstrate no focal lesions for noncontrast study, the pancreatic duct is normal in size.There is no evidence of focal high-signal on T2 lesions in the liver. The flow void of the portal vein is preserved. There is mild periportal edema. No ascites or perihepatic fluidThe gallbladder is no significant distended with multiple small 2-3 millimeters gallstones cord no pericholecystic fluid.There is no significant intrahepatic biliary dilatation. The common bile duct measuring in the mid aspect 3 millimeters semi however in the distal region is dilated measuring approximately 9 millimeters, there are multiple small 2 and 3 millimeter gallstones in the distal aspect. The duodenum demonstrate no focal abnormalities. There is no evidence of pancreas divisum.There is mild dextroscoliosis.IMPRESSIONMultiple small 2-3 millimeter gallstones with dilatation 8-9 millimeters of the distal common bile duct with multiple small gallstones. No dilatation of the pancreatic duct.Periportal areas of edema nonspecific. Diffuse fatty liverBilateral multiple renal cystsElectronically signed by: Lidia Patino (May 10, 2022 08:59:49)
--- NOTE | 2022-05-10 12:30 | PCM.PROG ---
Progress Note - Progress Note for Day of Date of Exam: 05/09/22 - Subjective Subjective: IS BEING TREATED FOR UTI, INFLUENZA, HYPERBILIRUBINEMIA, ELEVATED LFTs, HYPOKALEMIA, WEAKNESS, AND ABDOMINAL PAIN. TODAY, HE IS ALERT AND ORIENTED, LYING IN BED ON MORNING ROUNDS. HE CONTINUES WITH COMPLAINTS OF WEAKNESS, FATIGUE, AND DARK COLORED URINE. HE DOES ADMIT TO SLIGHT IMPROVEMENT IN WEAKNESS SINCE YESTERDAY. HE ADMITS TO MILD ABDOMINAL DISCOMFORT AT TIMES. ON EXAMINATION, HEART IS REGULAR IN RATE AND RHYTHM. BILATERAL LUNGS ARE NOTED WITH DIMINISHED LUNG SOUNDS THROUGHOUT. ABDOMEN IS ROUND, SOFT, AND NON-TENDER. NORMAL BOWEL SOUNDS ARE NOTED IN ALL QUADRANTS. HIS VITALS THIS MORNING ARE: 98.3-71-25-92%-115/72. LABS WERE OBTAINED. WBC 6.1, RBC 4.15, HGB 13.5, HCT 39.6, PLT COUNT 121, SODIUM 140, POTASSIUM 3.7, CHLORIDE 104, CARBON DIOXIDE 33.2, BUN 10, CREATININE 1.00, GLUCOSE 85, CALCIUM 7.5, TOTAL BILI 4.20, AST 110, ALT 104, ALK PHOS 230, TOTAL PROTEIN 5.9, ALBUMIN 2.3. URINE AND BLOOD CULTURES ARE PENDING. WE OBTAINED A CHEST XRAY. IT REVEALED: The cardi omediastinal silhouette is normal. No change in the appearance of bilateral interstitial prominence without consolidation or effusion. Aortic arch is again enlarged. Osseous structures demonstrate no acute abnormality. LIVER ULTRASOUND OBTAINED YESTERDAY AND REVEALED: 1.Cholelithiasis without c holecystitis. 2. Hepatic steatosis. HE IS CURRENTLY RECEIVING NORMAL SALINE AT 80 ML/HR, ROCEPHIN 1G IV DAILY, TAMIFLU 75MG PO BID, ROBITUSSIN DM 10ML QID, THE POTASSIUM AND MAGNESIUM PROTOCOLS, AND HIS HOME MEDICATIONS WERE RESUMED. TODAY, WE WILL OBTAIN A MRCP. OTHERWISE, WE WILL CONTINUE WITH CURRENT PLAN OF CARE TODAY. WE WILL FOLLOW-UP WITH AM LABS AND CONTINUE TO MONITOR. TIME SPENT ON CLINICAL ASSESSMENT, REVIWING LABS AND IMAGING, DECISION MAKING, AND DOCUMENTATION GREATER THAN 45 MINUTES. - Past Medical Family Social History Past Med/Fam/Surg Hx: No changes since H&P Allergies: Allergies No Known Drug Allergies Allergy (Verified 08/18/18 17:34) - Review of Systems ROS: No change since H&P - Vital Signs and I&O's Vital Signs: Temperature 97.6 F Pulse Rate 51 Respiratory Rate 22 Blood Pressure [Right Arm] 85/59 Blood Pressure 107/55 O2 Sat by Pulse Oximetry 92 Intake and Output: Intake & Output 05/08/22 05/09/22 05/10/22 05/11/22 11:59 11:59 11:59 11:59 Intake Total 2496 / 2496 2950 / 2950 2360 / 2360 Output Total 400 / 400 700 / 700 1200 / 1200 Balance 2096 / 2096 2250 / 2250 1160 / 1160 - Physical Exam Oriented: Normal Eyes: Normal Ear: Normal Nose: Other (NASAL CONGESTION ) Throat: Normal Respiratory: Diminished Cardiovascular: Normal : Dysuria, Hematuria Auscultation: Bowel Sounds: Normal Palpation: Normal Tenderness: Diffuse, Mild Skin: Normal Musculoskeletal: Normal Psychiatric: Normal Mood Description: Calm Affect: Normal Speech Pattern: Clear, Appropriate - Laboratory and Diagnostics Result Diagrams: 05/10/22 04:28 05/10/22 04:28 Labs: 05/05/22 15:00 Blood Blood Culture - Preliminary 05/05/22 14:53 Blood Blood Culture - Preliminary 05/05/22 17:30 Urine,Clean Catch Urine Culture - Final Laboratory WBC 5.9 X10^3/uL (3.6-10.0) 05/10/22 04:28 RBC 4.05 X10^6/uL (4.7-6.0) L 05/10/22 04:28 Hgb 13.1 g/dL (13.5-18.0) L 05/10/22 04:28 Hct 38.9 % (42.0-54.0) L 05/10/22 04:28 MCV 96.1 fL (80.0-100.0) 05/10/22 04:28 MCH 32.3 pg (27.0-34.0) 05/10/22 04:28 MCHC 33.6 g/dL (33.0-35.0) 05/10/22 04:28 RDW 16.2 % (11.6-16.5) 05/10/22 04:28 Plt Count 114 X10^3/uL (150.0-450.0) L 05/10/22 04:28 MPV 9.5 fL (7.4-11.0) 05/10/22 04:28 Neut % (Auto) 71.6 % (42.0-75.0) 05/10/22 04:28 Lymph % (Auto) 14.8 % (21.0-51.0) L 05/10/22 04:28 [place] % (Auto) 7.9 % (0.0-13.0) 05/10/22 04:28 Eos % (Auto) 4.8 % (0.9-2.9) H 05/10/22 04:28 Baso % (Auto) 0.9 % (0.2-1.0) 05/10/22 04:28 Neut # (Auto) 4.2 x10^3/uL (2.2-4.8) 05/10/22 04:28 Lymph # (Auto) 0.9 X10^3/uL (1.3-2.9) L 05/10/22 04:28 [place] # (Auto) 0.5 x10^3/uL (0.3-0.8) 05/10/22 04:28 Eos # (Auto) 0.3 x10^3/uL (0.0-0.2) H 05/10/22 04:28 Baso # (Auto) 0.1 X10^3/uL (0.0-0.1) 05/10/22 04:28 Absolute Nucleated RBC 0.2 /100WBC 05/10/22 04:28 Sodium 139 mmol/L (136-145) 05/10/22 04:28 Corrected Sodium TNP 05/10/22 04:28 Potassium 3.7 mmol/L (3.5-5.1) 05/10/22 04:28 Chloride 103 mmol/L (98-107) 05/10/22 04:28 Carbon Dioxide 33.1 mmol/L (21-32) H 05/10/22 04:28 BUN 9 mg/dL (7-18) 05/10/22 04:28 Creatinine 0.99 mg/dL (0.70-1.30) 05/10/22 04:28 Est GFR (MDRD) Af Amer > 60 (>60) 05/10/22 04:28 Est GFR (MDRD) Non-Af > 60 (>60) 05/10/22 04:28 Glucose 103 mg/dL (65-99) H 05/10/22 04:28 Calcium 7.3 mg/dL (8.5-10.1) L 05/10/22 04:28 Corrected Calcium 8.7 mg/dL (8.5-10.1) 05/10/22 04:28 Magnesium 2.0 mg/dL (1.7-2.9) 05/09/22 04:40 Total Bilirubin 4.10 mg/dL (0.2-1.0) H 05/10/22 04:28 AST 100 Units/L (15-37) H 05/10/22 04:28 ALT 98 Units/L (12-78) H 05/10/22 04:28 Alkaline Phosphatase 240 Units/L (46-116) H 05/10/22 04:28 Total Protein 5.8 g/dL (6.4-8.2) L 05/10/22 04:28 Albumin 2.3 g/dL (3.4-5.0) L 05/10/22 04:28 Globulin 3.5 g/dL (2.5-4.5) 05/10/22 04:28 Albumin/Globulin Ratio 0.7 Ratio (1.1-2.1) L 05/10/22 04:28 Specimen Type Clean catch urine 05/05/22 17: Urine Color [place] (YELLOW) 05/05/22 17:30 Urine Appearance Clear (CLEAR) 05/05/22 17:30 Urine pH 6.0 (5.0 - 8.0) 05/05/22 17: Ur Specific [place] 1.020 (1.000-1.030) 05/05/22 17:30 Urine Protein 2+ (NEGATIVE) 05/05/22 17: Urine Glucose (UA) Negative (NEGATIVE) 05/05/22 17: Urine Ketones 1+ (NEGATIVE) 05/05/22 17: Urine Blood 4+ (NEGATIVE) 05/05/22 17: Urine Nitrite Positive (NEGATIVE) 05/05/22 17:30 Urine Bilirubin 2+ (NEGATIVE) 05/05/22 17:30 Urine Urobilinogen 3+ (NORMAL) 05/05/22 17: Ur Leukocyte Esterase 1+ (NEGATIVE) 05/05/22 17: Urine RBC 10-20 /HPF (0-3) A 10/14/22 17:30 Urine WBC 3-5 /HPF (0-5) 05/05/22 17:30 Ur Squamous Epith Cells Rare /HPF (NEGATIVE) 05/05/22 17:30 Urine Bacteria Trace /HPF (NEGATIVE) 05/05/22 17:30 Ur Culture Indicated? Yes/culture set up 05/05/22 17:30 Digoxin 0.83 ng/mL (0.9-2) L 05/06/22 04:15 SARS-CoV-2 (PCR) Negative (NEGATIVE) 05/07/22 12:49 Hepatitis A IgM Ab Negative (Negative) 05/07/22 04:05 Hep Bs Antigen Negative (Negative) 05/07/22 04:05 Hep Bs Ag Confirmation TNP 05/07/22 04:05 Hep B Core IgM Ab Negative (Negative) 05/07/22 04:05 Hepatitis C Ab Index <0.02 IV 05/07/22 04:05 Hepatitis C Interp Negative (Negative) 05/07/22 04:05 Hepatitis Interpret See note 05/07/22 04:05 Influenza Type A (PCR) Positive (NEGATIVE) A 05/07/22 12:49 Influenza Type B (PCR) Negative (NEGATIVE) 05/07/22 12:49 RSV (PCR) Negative (NEGATIVE) 05/07/22 12:49 - Plan (1) UTI (urinary tract infection) Status: Acute Qualifiers: Urinary tract infection type: acute cystitis Hematuria presence: with hematuria Qualified Code(s): N30.01 - Acute cystitis with hematuria Plan: NORMAL SALINE AT 80 ML/HR, ROCEPHIN 1G IV DAILY, TAMIFLU 75MG PO BID, ROBITUSSIN DM 10ML PO QID, THE POTASSIUM AND MAGNESIUM PROTOCOLS, AND HIS HOME MEDICATIONS WERE RESUMED. (2) Influenza Status: Acute (3) Cholelithiasis Status: Acute Qualifiers: Cholelithiasis location: gallbladder Cholecystitis presence: without cholecystitis (4) Elevated LFTs Status: Acute (5) Hyperbilirubinemia Status: Acute (6) Hypokalemia Status: Acute (7) Weakness Status: Acute (8) Shortness of breath Status: Acute
--- NOTE | 2022-05-10 12:35 | PCM.PROG ---
Progress Note - Progress Note for Day of Date of Exam: 05/10/22 - Subjective Subjective: IS BEING TREATED FOR UTI, INFLUENZA, HYPERBILIRUBINEMIA, ELEVATED LFTs, HYPOKALEMIA, WEAKNESS, AND ABDOMINAL PAIN. TODAY, HE IS ALERT AND ORIENTED, LYING IN BED ON MORNING ROUNDS. HE CONTINUES WITH COMPLAINTS OF WEAKNESS, FATIGUE, AND DARK COLORED URINE. HE DOES ADMIT TO SLIGHT IMPROVEMENT IN WEAKNESS SINCE YESTERDAY. HE ADMITS TO MILD ABDOMINAL DISCOMFORT AT TIMES. ON EXAMINATION, HEART IS REGULAR IN RATE AND RHYTHM. BILATERAL LUNGS ARE NOTED WITH DIMINISHED LUNG SOUNDS THROUGHOUT. ABDOMEN IS ROUND, SOFT, AND NON-TENDER. NORMAL BOWEL SOUNDS ARE NOTED IN ALL QUADRANTS. HIS VITALS THIS MORNING ARE: 97.6-63-23-95%-114/67. LABS WERE OBTAINED. WBC 5.9, RBC 4.05, HGB 13.1, HCT 38.9, PLT COUNT 114, SODIUM 139, POTASSIUM 3.7, CHLORIDE 103, BUN 9, CREATININE 0.99, GLUCOSE 103, CALCIUM 7.3, TOTAL BILI 4.10, AST 100, ALT 98, ALK PHOS 240, TOTAL PROTEIN 5.8, ALBUMIN 2.3. URINE AND BLOOD CULTURES ARE PENDING. WE OBTAINED A CHEST XRAY. IT REVEALED: The cardiomediastinal silhouette is normal. No change in the appearance of bilateral interstitial prominence without consolidation or effusion. Aortic arch is again enlarged. Osseous structures demonstrate no acute abnormality. AN MRCP WAS OBTAINED YESTERDAY AND REVEALED: Multiple small 2-3 millimeter gallstones with dilatation 8-9 millimeters of the distal common bile duct with multiple small gallstones. No dilatation of the pancreatic duct. Periportal areas of edema nonspecific. Diffuse fatty liver. Bilateral multiple renal cysts. HE IS CURRENTLY RECEIVING NORMAL SALINE AT 80 ML/HR, ROCEPHIN 1G IV DAILY, TAMIFLU 75MG PO BID, ROBITUSSIN DM 10ML QID, THE POTASSIUM AND MAGNESIUM PROTOCOLS, AND HIS HOME MEDICATIONS WERE RESUMED. WE WILL CONSULT , GENERAL SURGEON. OTHERWISE, WE WILL CONTINUE WITH CURRENT PLAN OF CARE TODAY. WE WILL FOLLOW-UP WITH AM LABS AND CONTINUE TO MONITOR. TIME SPENT ON CLINICAL ASSESSMENT, REVIWING LABS AND IMAGING, DECISION MAKING, AND DOCUMENTATION GREATER THAN 45 MINUTES. - Past Medical Family Social History Past Med/Fam/Surg Hx: No changes since H&P Allergies: Allergies No Known Drug Allergies Allergy (Verified 08/18/18 17:34) - Review of Systems ROS: No change since H&P - Vital Signs and I&O's Vital Signs: Temperature 97.6 F Pulse Rate 51 Respiratory Rate 22 Blood Pressure [Right Arm] 85/59 Blood Pressure 107/55 O2 Sat by Pulse Oximetry 92 Intake and Output: Intake & Output 05/08/22 05/09/22 05/10/22 05/11/22 11:59 11:59 11:59 11:59 Intake Total 2496 / 2496 2950 / 2950 2360 / 2360 Output Total 400 / 400 700 / 700 1200 / 1200 Balance 2096 / 2096 2250 / 2250 1160 / 1160 - Physical Exam Oriented: Normal Eyes: Normal Ear: Normal Nose: Other (NASAL CONGESTION ) Throat: Normal Respiratory: Diminished Cardiovascular: Normal : Dysuria, Hematuria Auscultation: Bowel Sounds: Normal Palpation: Normal Tenderness: Diffuse, Mild Skin: Normal Musculoskeletal: Normal Psychiatric: Normal Mood Description: Calm Affect: Normal Speech Pattern: Clear, Appropriate - Laboratory and Diagnostics Result Diagrams: 05/10/22 04:28 05/10/22 04:28 Labs: 05/05/22 15:00 Blood Blood Culture - Preliminary 05/05/22 14:53 Blood Blood Culture - Preliminary 05/05/22 17:30 Urine,Clean Catch Urine Culture - Final Laboratory WBC 5.9 X10^3/uL (3.6-10.0) 05/10/22 04:28 RBC 4.05 X10^6/uL (4.7-6.0) L 05/10/22 04:28 Hgb 13.1 g/dL (13.5-18.0) L 05/10/22 04:28 Hct 38.9 % (42.0-54.0) L 05/10/22 04:28 MCV 96.1 fL (80.0-100.0) 05/10/22 04:28 MCH 32.3 pg (27.0-34.0) 05/10/22 04:28 MCHC 33.6 g/dL (33.0-35.0) 05/10/22 04:28 RDW 16.2 % (11.6-16.5) 05/10/22 04:28 Plt Count 114 X10^3/uL (150.0-450.0) L 05/10/22 04:28 MPV 9.5 fL (7.4-11.0) 05/10/22 04:28 Neut % (Auto) 71.6 % (42.0-75.0) 05/10/22 04:28 Lymph % (Auto) 14.8 % (21.0-51.0) L 05/10/22 04:28 [place] % (Auto) 7.9 % (0.0-13.0) 05/10/22 04:28 Eos % (Auto) 4.8 % (0.9-2.9) H 05/10/22 04:28 Baso % (Auto) 0.9 % (0.2-1.0) 05/10/22 04:28 Neut # (Auto) 4.2 x10^3/uL (2.2-4.8) 05/10/22 04:28 Lymph # (Auto) 0.9 X10^3/uL (1.3-2.9) L 05/10/22 04:28 [place] # (Auto) 0.5 x10^3/uL (0.3-0.8) 05/10/22 04:28 Eos # (Auto) 0.3 x10^3/uL (0.0-0.2) H 05/10/22 04:28 Baso # (Auto) 0.1 X10^3/uL (0.0-0.1) 05/10/22 04:28 Absolute Nucleated RBC 0.2 /100WBC 05/10/22 04:28 Sodium 139 mmol/L (136-145) 05/10/22 04:28 Corrected Sodium TNP 05/10/22 04:28 Potassium 3.7 mmol/L (3.5-5.1) 05/10/22 04:28 Chloride 103 mmol/L (98-107) 05/10/22 04:28 Carbon Dioxide 33.1 mmol/L (21-32) H 05/10/22 04:28 BUN 9 mg/dL (7-18) 05/10/22 04:28 Creatinine 0.99 mg/dL (0.70-1.30) 05/10/22 04:28 Est GFR (MDRD) Af Amer > 60 (>60) 05/10/22 04:28 Est GFR (MDRD) Non-Af > 60 (>60) 05/10/22 04:28 Glucose 103 mg/dL (65-99) H 05/10/22 04:28 Calcium 7.3 mg/dL (8.5-10.1) L 05/10/22 04:28 Corrected Calcium 8.7 mg/dL (8.5-10.1) 05/10/22 04:28 Magnesium 2.0 mg/dL (1.7-2.9) 05/09/22 04:40 Total Bilirubin 4.10 mg/dL (0.2-1.0) H 05/10/22 04:28 AST 100 Units/L (15-37) H 05/10/22 04:28 ALT 98 Units/L (12-78) H 05/10/22 04:28 Alkaline Phosphatase 240 Units/L (46-116) H 05/10/22 04:28 Total Protein 5.8 g/dL (6.4-8.2) L 05/10/22 04:28 Albumin 2.3 g/dL (3.4-5.0) L 05/10/22 04:28 Globulin 3.5 g/dL (2.5-4.5) 05/10/22 04:28 Albumin/Globulin Ratio 0.7 Ratio (1.1-2.1) L 05/10/22 04:28 Specimen Type Clean catch urine 05/05/22 17:30 Urine Color Claire (YELLOW) 05/05/22 17: Urine Appearance Clear (CLEAR) 05/05/22 17: Urine pH 6.0 (5.0 - 8.0) 05/05/22 17:30 Ur Specific Gause 1.020 (1.000-1.030) 05/05/22 17:30 Urine Protein 2+ (NEGATIVE) 05/05/22 17: Urine Glucose (UA) Negative (NEGATIVE) 05/05/22 17: Urine Ketones 1+ (NEGATIVE) 05/05/22 17: Urine Blood 4+ (NEGATIVE) 05/05/22 17:30 Urine Nitrite Positive (NEGATIVE) 05/05/22 17: Urine Bilirubin 2+ (NEGATIVE) 05/05/22 17: Urine Urobilinogen 3+ (NORMAL) 05/05/22 17:30 Ur Leukocyte Esterase 1+ (NEGATIVE) 05/05/22 17:30 Urine RBC 10-20 /HPF (0-3) A 05/05/22 17:30 Urine WBC 3-5 /HPF (0-5) 05/05/22 17:30 Ur Squamous Epith Cells Rare /HPF (NEGATIVE) 05/05/22 17:30 Urine Bacteria Trace /HPF (NEGATIVE) 05/05/22 17:30 Ur Culture Indicated? Yes/culture set up 05/05/22 17:30 Digoxin 0.83 ng/mL (0.9-2) L 05/06/22 04:15 SARS-CoV-2 (PCR) Negative (NEGATIVE) 05/07/22 12:49 Hepatitis A IgM Ab Negative (Negative) 05/07/22 04:05 Hep Bs Antigen Negative (Negative) 05/07/22 04:05 Hep Bs Ag Confirmation TNP 05/07/22 04:05 Hep B Core IgM Ab Negative (Negative) 05/07/22 04:05 Hepatitis C Ab Index <0.02 IV 05/07/22 04:05 Hepatitis C Interp Negative (Negative) 05/07/22 04:05 Hepatitis Interpret See note 05/07/22 04:05 Influenza Type A (PCR) Positive (NEGATIVE) A 05/07/22 12:49 Influenza Type B (PCR) Negative (NEGATIVE) 05/07/22 12:49 RSV (PCR) Negative (NEGATIVE) 05/07/22 12:49 - Plan (1) UTI (urinary tract infection) Status: Acute Qualifiers: Urinary tract infection type: acute cystitis Hematuria presence: with hematuria Qualified Code(s): N30.01 - Acute cystitis with hematuria Plan: NORMAL SALINE AT 80 ML/HR, ROCEPHIN 1G IV DAILY, TAMIFLU 75MG PO BID, ROBITUSSIN DM 10ML PO QID, THE POTASSIUM AND MAGNESIUM PROTOCOLS, AND HIS HOME MEDICATIONS WERE RESUMED. (2) Influenza Status: Acute (3) Cholelithiasis Status: Acute Qualifiers: Cholelithiasis location: gallbladder and bile duct Cholecystitis presence: without cholecystitis Biliary obstruction: with biliary obstruction Qualified Code(s): K80.71 - Calculus of gallbladder and bile duct without cho lecystitis with obstruction (4) Elevated LFTs Status: Acute (5) Hyperbilirubinemia Status: Acute (6) Hypokalemia Status: Acute (7) Weakness Status: Acute (8) Shortness of breath Status: Acute
[2022-05-10] MEDS: PROTONIX TAB 40 MG PO SCH (20:23)
[2022-05-10] MEDS: DESYREL PO SCH (20:24)
[2022-05-10] MEDS: RESTORIL CAP 15 MG PO PRN (20:24)
[2022-05-11 05:01] LABS: BASOPHILS # (AUTO) 0.1 X10^3/uL (0.0-0.1); EOSINOPHILS # (AUTO) 0.3 x10^3/uL (0.0-0.2); EOSINOPHILS % (AUTO) 4.3 % (0.9-2.9); HEMATOCRIT 41.1 % (42.0-54.0); HEMOGLOBIN 13.8 g/dL (13.5-18.0); LYMPHOCYTES # (AUTO) 1.2 X10^3/uL (1.3-2.9); LYMPHOCYTES % (AUTO) 17.8 % (21.0-51.0); MEAN CORPUSCULAR HEMOGLOBIN 32.3 pg (27.0-34.0); MEAN CORPUSCULAR HGB CONC 33.6 g/dL (33.0-35.0); MEAN CORPUSCULAR VOLUME 96.1 fL (80.0-100.0); MEAN PLATELET VOLUME 9.5 fL (7.4-11.0); MONOCYTES # (AUTO) 0.4 x10^3/uL (0.3-0.8); MONOCYTES % (AUTO) 6.8 % (0.0-13.0); NEUTROPHILS # (AUTO) 4.5 x10^3/uL (2.2-4.8); NEUTROPHILS % (AUTO) 70.1 % (42.0-75.0); RED BLOOD COUNT 4.27 X10^6/uL (4.7-6.0); RED CELL DISTRIBUTION WIDTH 16.3 % (11.6-16.5); WHITE BLOOD COUNT 6.5 X10^3/uL (3.6-10.0)
[2022-05-11 05:17] LABS: ALANINE AMINOTRANSFERASE 107 Units/L (12-78); ALBUMIN 2.4 g/dL (3.4-5.0); ALKALINE PHOSPHATASE 268 Units/L (46-116); ASPARTATE AMINO TRANSFERASE 100 Units/L (15-37); BLOOD UREA NITROGEN 8 mg/dL (7-18); CALCIUM 7.6 mg/dL (8.5-10.1); CARBON DIOXIDE 30.5 mmol/L (21-32); CHLORIDE 101 mmol/L (98-107); COR CA(FOR HYPOALB) 8.9 mg/dL (8.5-10.1); COR NA(FOR HYPERGLY) 136 mmol/L (136-145); CREATININE 0.93 mg/dL (0.70-1.30); DIGOXIN 0.53 ng/mL (0.9-2); SODIUM 136 mmol/L (136-145); TOTAL PROTEIN 6.1 g/dL (6.4-8.2); eGFR NON BLACK RACES > 60 (>60)
[2022-05-11] MEDS: NS 1,000 ML IV 1,000 ML IV SCH (05:19)
[2022-05-11] MEDS ORDERED: LEXAPRO ONE (08:03)
--- NOTE | 2022-05-11 08:12 | RAD ---
HISTORYShortness of breath, hypoxia, weaknessSTUDYChest AP [id number]/19/2022FINDINGSHear t size remains normal. Naty are normal. The aortic arch is dilated but unchanged from the prior examination. Lungs are free of acute alveolar infiltrates. No pleural effusions are identified. Bony thorax is unremarkable.IMPRESSIONNo definite acute infiltratesDilated but stable aortic archElectronically signed by: TRACY SAAVEDRA (May 11, 2022 08:11:08)
[2022-05-11] MEDS: ROBITUSSIN DM PO SCH ×2 (08:27→14:10)
[2022-05-11] MEDS: ROCEPHIN VIAL 1 GRAM 1 G in NS 100 ML IV 100 ML IV SCH (08:27)
[2022-05-11] MEDS: ZyrTEC TAB 10 MG PO SCH (08:28)
[2022-05-11] MEDS: LEXAPRO PO SCH (08:28)
[2022-05-11] MEDS: HEMOCYTE-PLUS PO SCH (08:28)
[2022-05-11] MEDS: SINGULAIR TAB 10 MG PO SCH (08:28)
[2022-05-11] MEDS: LANOXIN or DIGITEK PO SCH (08:29)
[2022-05-11] MEDS: PROAMATINE PO SCH (08:29)
[2022-05-11] MEDS: INDERAL TAB 10 MG PO SCH (08:29)
[2022-05-11] MEDS: FLOMAX PO SCH (08:29)
[2022-05-11] MEDS: TAMIFLU PO SCH (09:39)
[2022-05-11] MEDS: PEPCID TAB 40 MG PO SCH (09:39)
[2022-05-11 17:08] VITALS: BP 102/61
== END 2022-05-11 17:58 | disposition short-term general hospital (02) | DRG 690 ==
LOC: ICU
PROVIDERS: ADMIT Internal Medicine; ATTEND Internal Medicine
DX: K80.80 Other cholelithiasis without obstruction; Z98.890 Other specified postprocedural states; R30.0 Dysuria; J10.1 Influenza due to other identified influenza virus with other respiratory manifestations; Z96.649 Presence of unspecified artificial hip joint; N30.01 Acute cystitis with hematuria; R31.9 Hematuria, unspecified; K21.9 Gastro-esophageal reflux disease without esophagitis; K76.0 Fatty (change of) liver, not elsewhere classified; Z87.442 Personal history of urinary calculi; Z87.440 Personal history of urinary (tract) infections; E87.6 Hypokalemia; Z20.822 Contact with and (suspected) exposure to COVID-19; N40.0 Benign prostatic hyperplasia without lower urinary tract symptoms; R63.8 Other symptoms and signs concerning food and fluid intake; M19.90 Unspecified osteoarthritis, unspecified site; E80.6 Other disorders of bilirubin metabolism; R26.9 Unspecified abnormalities of gait and mobility; R79.89 Other specified abnormal findings of blood chemistry; I25.10 Atherosclerotic heart disease of native coronary artery without angina pectoris; R06.02 Shortness of breath; R53.1 Weakness; J84.10 Pulmonary fibrosis, unspecified; I10 Essential (primary) hypertension

== ENCOUNTER 2022-05-19 14:40 | Inpatient (IN) ==
[2022-05-19 18:43] LABS: MEAN CORPUSCULAR VOLUME 96.1 fL (80.0-100.0)
[2022-05-19 18:47] LABS: BASOPHILS # (AUTO) 0.1 X10^3/uL (0.0-0.1); EOSINOPHILS # (AUTO) 0.3 x10^3/uL (0.0-0.2); EOSINOPHILS % (AUTO) 2.8 % (0.9-2.9); HEMATOCRIT 39.2 % (42.0-54.0); HEMOGLOBIN 13.2 g/dL (13.5-18.0); LYMPHOCYTES # (AUTO) 1.3 X10^3/uL (1.3-2.9); LYMPHOCYTES % (AUTO) 11.3 % (21.0-51.0); MEAN CORPUSCULAR HEMOGLOBIN 32.4 pg (27.0-34.0); MEAN CORPUSCULAR HGB CONC 33.7 g/dL (33.0-35.0); MEAN PLATELET VOLUME 9.2 fL (7.4-11.0); MONOCYTES # (AUTO) 1.1 x10^3/uL (0.3-0.8); MONOCYTES % (AUTO) 9.9 % (0.0-13.0); NEUTROPHILS # (AUTO) 8.4 x10^3/uL (2.2-4.8); RED BLOOD COUNT 4.08 X10^6/uL (4.7-6.0); RED CELL DISTRIBUTION WIDTH 15.9 % (11.6-16.5); WHITE BLOOD COUNT 11.2 X10^3/uL (3.6-10.0)
[2022-05-19 18:50] LABS: ALANINE AMINOTRANSFERASE 68 Units/L (12-78); ALBUMIN 2.3 g/dL (3.4-5.0); ALKALINE PHOSPHATASE 353 Units/L (46-116); ASPARTATE AMINO TRANSFERASE 88 Units/L (15-37); BLOOD UREA NITROGEN 20 mg/dL (7-18); CALCIUM 8.4 mg/dL (8.5-10.1); CARBON DIOXIDE 34.7 mmol/L (21-32); CHLORIDE 100 mmol/L (98-107); COR CA(FOR HYPOALB) 9.8 mg/dL (8.5-10.1); CREATININE 0.94 mg/dL (0.70-1.30); SODIUM 140 mmol/L (136-145); TOTAL PROTEIN 6.5 g/dL (6.4-8.2); eGFR NON BLACK RACES > 60 (>60)
[2022-05-19] MEDS: ELIQUIS PO SCH (20:51)
[2022-05-19] MEDS: DESYREL PO SCH (20:52)
[2022-05-19] MEDS: INDERAL TAB 10 MG PO SCH (20:52)
[2022-05-19] MEDS: SINGULAIR TAB 10 MG PO SCH (20:52)
[2022-05-20] MEDS: PROAMATINE PO SCH ×3 (05:42→17:33)
[2022-05-20] MEDS ORDERED: LEXAPRO ONE (08:04)
[2022-05-20] MEDS: INDERAL TAB 10 MG PO SCH ×2 (08:39→20:11)
[2022-05-20] MEDS: ASPIRIN EC 81 MG PO SCH (08:39)
[2022-05-20] MEDS: LEXAPRO PO SCH (08:39)
[2022-05-20] MEDS: FLOMAX PO SCH (08:39)
[2022-05-20] MEDS: PROTONIX TAB 40 MG PO SCH (08:41)
[2022-05-20] MEDS: ELIQUIS PO SCH ×2 (08:41→20:10)
[2022-05-20] MEDS: ZyrTEC TAB 10 MG PO SCH (08:41)
[2022-05-20] MEDS: LANOXIN or DIGITEK PO SCH (09:20)
[2022-05-20] MEDS: DETROL LA 4 MG CAP EXT REL PO SCH (11:49)
[2022-05-20] MEDS ORDERED: MILK OF MAGNESIA PO PRN (16:23)
[2022-05-20] MEDS ORDERED: COLACE CAP 100 MG PO PRN (16:23)
[2022-05-20] MEDS: SINGULAIR TAB 10 MG PO SCH (20:10)
[2022-05-20] MEDS: DESYREL PO SCH (20:10)
[2022-05-21] MEDS: PROAMATINE PO SCH ×3 (05:05→18:32)
[2022-05-21] MEDS ORDERED: LEXAPRO ONE (08:16)
[2022-05-21] MEDS: ASPIRIN EC 81 MG PO SCH (09:20)
[2022-05-21] MEDS: LEXAPRO PO SCH (09:21)
[2022-05-21] MEDS: DETROL LA 4 MG CAP EXT REL PO SCH (09:21)
[2022-05-21] MEDS: ZyrTEC TAB 10 MG PO SCH (09:21)
[2022-05-21] MEDS: LANOXIN or DIGITEK PO SCH (09:22)
[2022-05-21] MEDS: ELIQUIS PO SCH ×2 (09:24→20:17)
[2022-05-21] MEDS: FLOMAX PO SCH (09:25)
[2022-05-21] MEDS: PROTONIX TAB 40 MG PO SCH (09:25)
[2022-05-21] MEDS: INDERAL TAB 10 MG PO SCH ×2 (09:25→20:17)
[2022-05-21 11:48] VITALS: BMI 21.2
--- NOTE | 2022-05-21 15:13 | PT/OTEVAL ---
PT/OT OBJECTIVES - HISTORY Prescription: PT Consult Diagnosis: CAD, AFib, s/p Cholecystectomy Precautions: Fall Risk, Decreased Safety Awareness, 2LO2 via Nasal Cannula PMH: CAD, GERD, HTN, Kidney Stones, Pulmonary Fibrosis, Chronic UTIs, Anemia, Esphogeal Web, Aneursymal Repair with Groin Hematoma, Anxiety, Urinary Retention, BPH, AAA Repair Prior Level of Function: Assistance Required Other: Per pt's - pt resides with her in single story home with 2 steps to enter (RHR to ascend). She states that prior to hospitalization, pt was able to ambulate within the home with SPC with supervision. She does report that at times she had to assist pt getting into/out of bed, with transfers and with bathing & dressing tasks. She reports that he primarily stays in the home and does require assistance to leave home for appointments. Reports having a son & daughter but that they are unable to help often but do as much as they can. DME: SPC, FWW, handicap commodes and walk in shower and shower bench. - COGNITION Mental Status: Alert, Name, Place, Confused, Uncooperative Communication Status: Verbal Ability to Follow Directions: 1 Step Memory Loss: Short term memory loss, superintendent terminal memory loss - PAIN Abdomen Pain Scale: Mild (3-4) - BED MOBILITY Rolling: Minimal Scooting: Moderate - TRANSFERS Supine to Sit: Moderate Sit to Stand: Moderate Sit or Stand Pivot: Moderate Safety (requires cues for:): Hand Placement Precaution - BALANCE Static Sitting: Good Standing: Poor Dynamic Sitting: Fair Standing: Poor - NEUROMOTOR/SENSATION Rodney. Lower Ext Sensation: WFL Coordination: WFL Proprioception: WFL - HAND DOMINANCE Extremity Function: Hand Dominance: Right - ROM Bilateral LE ROM: WFL Muscle Tone: WFL - STRENGTH Bilateral LE Strength Number: 3 Other comment: 3/5 - GAIT Pt. ambulates how many feet?: 3 Amount of Assistance Required: Minimal Type of Assistive Device: Rolling Walker Comments: Declined to attempt further ambulation PT/OT ASSESSMENT - PT Problem List: Decreased Bed Mobility, Decreased Transfers, Decreased Gait, Decreased Balance, Decreased Safety, Decreased LE Strength - PT GOALS Short Term Goals Days: 10 Mobility: Pt will perform bed mobility tasks with min assist Transfers: Pt will perform functional transfers with min assist Gait: Pt will ambulate 75ft with FWW with min assist Balance: Pt will increase static standing balance to fair+ Usp Goals Days: 20 Mobility: Pt will perform bed mobility tasks with supervision Transfers: Pt will perform functional transfers with supervision Gait: Pt will ambulate 100ft with LRAD with CGA Balance: Pt will increase dynamic standing balance to fair ROM/Strength: Pt will increase BLE strength to 4+/5 Others: Pt will ascend/descend 2 stairs with single HR with CGA - PATIENT GOALS Patient/Family Goals: "Help him get stronger so we can get back home" -pts Goals Discussed with Patient/Family: Yes (Pt and pt's ) Rehabilitation Potential: Good to meet stated goals Justification for Potential: Facilitate highest level of function & safe discharge planning Weakness and Barriers: Decreased Participation If yes, explain: Pt requires frequent education on participation in swing bed rehab - PLAN Suggested Treatment Plan: Bed Mobility Training, Therapeutic Activity, Gait Training, Neuro Re-education, Therapeutic Ex with HEP, Patient Education, Family Education - FREQUENCY AND DURATION PT: 5x per week x hospital stay Expected Continuation of Care at Discharge: Determined on Progress Comments: Home health vs SNF (pending pt participation)
[2022-05-21] MEDS: DESYREL PO SCH (20:16)
[2022-05-21] MEDS: SINGULAIR TAB 10 MG PO SCH (20:17)
--- NOTE | 2022-05-21 22:07 | DR.UPDATE ---
H&P Update Prescription drug monitoring program results: PDMP reviewed and no concerns identified H&P Reviewed: Yes Any changes to H&P?: Yes Changes noted:: WAS TRANSFERRED BACK TO [facility] FROM [facility] IN [place], [place]. HE WAS TREATED FOR TRANSAMINITIS, CHOLEDOCHOLITHIASIS, AND IS STATUS POST CHOLECYSTECTOMY. HE PRESENTED BACK TO OUR FACILTY FOR PHYSICAL THERAPY AND REHABILITATION. WE WILL CONTINUE HIS HOME MEDICATIONS. WE WILL HAVE PHYSICAL AND OCCUPATIONAL THERAPIES WORK WITH HIM DAILY. WE WILL MONITOR LABS EVERY 3 DAYS AND MAKE CHANGES APPROPRIATE. TIME SPENT ON CLINICAL ASSESSMENT, REVIEWING LABS AND IMAGING, DECISION MAKING, AND DOCUMENTATION GREATER THAN 45 MINUTES. Patient was examined?: Yes
[2022-05-22] MEDS: PROAMATINE PO SCH ×3 (05:09→16:59)
[2022-05-22] MEDS: NYSTATIN POWDER TOP SCH ×3 (05:55→23:00)
[2022-05-22 06:11] LABS: BASOPHILS # (AUTO) 0.2 X10^3/uL (0.0-0.1); BASOPHILS % (AUTO) 1.2 % (0.2-1.0); EOSINOPHILS # (AUTO) 0.2 x10^3/uL (0.0-0.2); EOSINOPHILS % (AUTO) 1.9 % (0.9-2.9); HEMATOCRIT 39.8 % (42.0-54.0); HEMOGLOBIN 13.6 g/dL (13.5-18.0); LYMPHOCYTES # (AUTO) 1.1 X10^3/uL (1.3-2.9); LYMPHOCYTES % (AUTO) 8.3 % (21.0-51.0); MEAN CORPUSCULAR HEMOGLOBIN 32.7 pg (27.0-34.0); MEAN CORPUSCULAR HGB CONC 34.1 g/dL (33.0-35.0); MEAN CORPUSCULAR VOLUME 95.8 fL (80.0-100.0); MONOCYTES # (AUTO) 1.2 x10^3/uL (0.3-0.8); NEUTROPHILS # (AUTO) 10.4 x10^3/uL (2.2-4.8); NEUTROPHILS % (AUTO) 79.6 % (42.0-75.0); RED BLOOD COUNT 4.16 X10^6/uL (4.7-6.0); RED CELL DISTRIBUTION WIDTH 15.8 % (11.6-16.5)
[2022-05-22 06:16] LABS: BLOOD UREA NITROGEN 14 mg/dL (7-18); CARBON DIOXIDE 31.4 mmol/L (21-32); CHLORIDE 99 mmol/L (98-107); COR NA(FOR HYPERGLY) 135 mmol/L (136-145); CREATININE 0.91 mg/dL (0.70-1.30); SODIUM 135 mmol/L (136-145); eGFR NON BLACK RACES > 60 (>60)
[2022-05-22 06:59] LABS: ALANINE AMINOTRANSFERASE 69 Units/L (12-78); ALBUMIN 2.3 g/dL (3.4-5.0); ALKALINE PHOSPHATASE 337 Units/L (46-116); ASPARTATE AMINO TRANSFERASE 91 Units/L (15-37); COR CA(FOR HYPOALB) 9.4 mg/dL (8.5-10.1); TOTAL PROTEIN 6.4 g/dL (6.4-8.2)
[2022-05-22] MEDS ORDERED: LEXAPRO ONE (07:49)
[2022-05-22] MEDS: ZyrTEC TAB 10 MG PO SCH (09:22)
[2022-05-22] MEDS: LEXAPRO PO SCH (09:22)
[2022-05-22] MEDS: ASPIRIN EC 81 MG PO SCH (09:22)
[2022-05-22] MEDS: INDERAL TAB 10 MG PO SCH ×2 (09:23→21:16)
[2022-05-22] MEDS: DETROL LA 4 MG CAP EXT REL PO SCH (09:23)
[2022-05-22] MEDS: ELIQUIS PO SCH ×2 (09:23→21:15)
[2022-05-22] MEDS: FLOMAX PO SCH (09:23)
[2022-05-22] MEDS: PROTONIX TAB 40 MG PO SCH (09:23)
--- NOTE | 2022-05-22 11:30 | RAD ---
HISTORYCoughSTUDYAP chestCOMPARISONOctober 2021FINDINGSHeart size remains normal with marked arteriosclerotic dilatation of thoracic aorta. A definite focal aneurysm is not identified. The lungs and pleural spaces are clear of active process.IMPRESSIONNo change or acute findings. See above description.Electronically signed by: JARRETT KUMARI (May 22, 2022 11:29:30)
[2022-05-22] MEDS: MEGACE PO SCH ×2 (11:34→21:15)
--- NOTE | 2022-05-22 11:58 | PT/OTEVAL ---
PT/OT OBJECTIVES - HISTORY Prescription: OT consult Diagnosis: CAD, AFib, s/p Cholecystectomy Precautions: fall risk, SOB, PMH: CAD, GERD, HTN, Kidney Stones, Pulmonary Fibrosis, Chronic UTIs, Anemia, Esphogeal Web, Aneursymal Repair with Groin Hematoma, Anxiety, Urinary Retention, BPH, AAA Repair Prior Level of Function: Assistance Required Other: Prior to hospitalization, patient lives with in a single level home with 2 steps to get in/out. Patient was reported to have limited ambulation using cane mostly from be<>bathroom and bed<>kitchen and mostly stays in recliner per 's report. Patient reports of being able to dress himself with min A and can go to toilet and perform toielt hygiene independently but requires assist with bathing. Pt was also reported of having several falls in the past in which the most recent one was at the hospityal when he attempted to stand up. DME includes: SPC, FWW, handicap commode, [id number] with shower bench. - COGNITION Mental Status: Alert, Oriented, Name, Date, Place, Purpose, Confused Communication Status: Verbal Ability to Follow Directions: 1 Step Memory Loss: Short term memory loss, half-way memory loss - PAIN Abdomen Pain Scale: No Pain - BED MOBILITY Rolling: Moderate Scooting: Moderate - TRANSFERS Supine to Sit: Moderate Sit to Stand: Maximum, x1 Sit or Stand Pivot: Maximum, x1 - ADL'S Feeding: Setup Grooming: Minimum Upper Body ADL: Maximum Lower Body ADL: Maximum Toileting: Maximum Toileting Comment: uses BSC, urinal - BALANCE Static Sitting: Fair Standing: Poor Balance Comment: patient was leaning back during static sitting needing support Dynamic Sitting: Fair Standing: Poor - NEUROMOTOR/SENSATION Rodney. Lower Ext Sensation: WFL Coordination: WFL Proprioception: WFL Rodney. Upper Ext Sensation: WFL Coordination: WFL Proprioception: WFL - HAND DOMINANCE Extremity Function: Hand Dominance: Right - ROM Bilateral UE ROM: WFL Muscle Tone: WFL - STRENGTH Bilateral LE Strength Number: 3 Other comment: 3/5 Bilateral UE Strength Number: 3 Other comment: 3+/5 PT/OT ASSESSMENT - OT Problem List: Decreased Mobility ADL's, Decreased Safety Aware, Decreased Dressing, Decreased Bathing, Decreased Grooming, Decreased UE Strength - PT GOALS Short Term Goals Days: 10 Mobility: Pt will perform bed mobility tasks with min assist Transfers: Pt will perform functional transfers with min assist Gait: Pt will ambulate 75ft with FWW with min assist Balance: Pt will increase static standing balance to fair+ Prison Goals Days: 20 Mobility: Pt will perform bed mobility tasks with supervision Transfers: Pt will perform functional transfers with supervision Gait: Pt will ambulate 100ft with LRAD with CGA Balance: Pt will increase dynamic standing balance to fair ROM/Strength: Pt will increase BLE strength to 4+/5 Others: Pt will ascend/descend 2 stairs with single HR with CGA - OT GOALS J2Ee Java Developer Goals Days: 20 Mobility for ADL's: Pt will improve toilet t/f supv A with AE as needed Safety Awareness: Pt will demonstrate G safety awareness to decrease fall risk Dressing: Pt will perform UB/LB dressing w/supv A with AE as needed. Bathing: Pt will improve bathing skills to supv A level Grooming: Pt will improve grooming skills to independent level Upper Ext. Strength/Use: Pt will increase BUE strength to 5/5 to increase ADL,t/f and mobility Other: Pt will imporve F.A.T. to G to increase efficiency with ADL Short Term Goals Days: 10 Mobility for ADL's: Pt will improve toilet t/f w/mod A with AE as needed Safety Awareness: Pt will demonstrate F safety awareness to decrease fall risk Dressing: Pt will perform UB/LB dressing w/mod A with AE as needed. Bathing: Pt will improve bathing skills to mod A level Grooming: Pt will improve grooming skills to Fermin level Upper Ext. Strength/Use: Pt will increase BUE strength to 4/5 to increase ADL,t/f and mobility Other: Pt will imporve F.A.T. to F+ to increase efficiency with ADL - PATIENT GOALS Patient/Family Goals: return to PLOF Goals Discussed with Patient/Family: Yes Rehabilitation Potential: fair to good Justification for Potential: commorbidities, level of motivation - PLAN Suggested Treatment Plan: Therapeutic Activity, Self Care Training, Neuro Re- education, Therapeutic Ex with HEP - FREQUENCY AND DURATION OT: 5x a week x hospital stay Expected Continuation of Care at Discharge: Home
--- NOTE | 2022-05-22 13:14 | PCM.PROG ---
Progress Note - Progress Note for Day of Date of Exam: 05/21/22 - Subjective Subjective: WAS TRANSFERRED BACK TO OUR [facility] FROM [facility] IN [place], [place]. HE WAS TREATED FOR TRANSAMINITIS, CHOLEDOCHOLITHIASIS, AND IS STATUS POST CHOLECYSTECTOMY. HE PRESENTED BACK TO OUR [facility]TY FOR PHYSICAL THERAPY AND REHABILITATION. WE WILL CONTINUE HIS HOME MEDICATIONS. WE WILL HAVE PHYSICAL AND OCCUPATIONAL THERAPIES WORK WITH HIM DAILY. WE WILL MONITOR LABS EVERY 3 DAYS AND MAKE CHANGES APPROPRIATE. - Past Medical Family Social History Past Med/Fam/Surg Hx: No changes since H&P Allergies: Allergies No Known Drug Allergies Allergy (Verified 08/18/18 17:34) - Review of Systems ROS: No change since H&P - Vital Signs and I&O's Vital Signs: Temperature 98.3 F Pulse Rate [Left Radial] 92 Pulse Rate 96 Respiratory Rate 20 Blood Pressure [Left Arm] 106/73 Blood Pressure [Right Arm] 112/65 Blood Pressure 102/61 O2 Sat by Pulse Oximetry 95 Intake and Output: Intake & Output 05/20/22 05/21/22 05/22/22 05/23/22 11:59 11:59 11:59 11:59 Intake Total 180 / 180 702 / 702 820 / 820 Output Total 900 / 900 600 / 600 250 / 250 Balance -720 / -720 102 / 102 570 / 570 - Physical Exam Oriented: Normal Eyes: Normal Ear: Normal Nose: Normal Throat: Normal Respiratory: Diminished Cardiovascular: Irregular (regularly irregular, controlled rate) Auscultation: Bowel Sounds: Decreased Skin: Decreased Turgur Musculoskeletal: Back:Lumbar Psychiatric: Normal Mood Description: Calm Speech Pattern: Clear, Appropriate - Laboratory and Diagnostics Result Diagrams: 05/22/22 05:34 05/22/22 05:34 Labs: Laboratory WBC 13.0 X10^3/uL (3.6-10.0) H 05/22/22 05:34 RBC 4.16 X10^6/uL (4.7-6.0) L 05/22/22 05:34 Hgb 13.6 g/dL (13.5-18.0) 05/22/22 05:34 Hct 39.8 % (42.0-54.0) L 05/22/22 05:34 MCV 95.8 fL (80.0-100.0) 05/22/22 05:34 MCH 32.7 pg (27.0-34.0) 05/22/22 05:34 MCHC 34.1 g/dL (33.0-35.0) 05/22/22 05:34 RDW 15.8 % (11.6-16.5) 05/22/22 05:34 Plt Count 236 X10^3/uL (150.0-450.0) 05/22/22 05:34 MPV 9.0 fL (7.4-11.0) 05/22/22 05:34 Neut % (Auto) 79.6 % (42.0-75.0) H 05/22/22 05:34 Lymph % (Auto) 8.3 % (21.0-51.0) L 05/22/22 05:34 Edgar % (Auto) 9.0 % (0.0-13.0) 05/22/22 05:34 Eos % (Auto) 1.9 % (0.9-2.9) 05/22/22 05:34 Baso % (Auto) 1.2 % (0.2-1.0) H 05/22/22 05:34 Neut # (Auto) 10.4 x10^3/uL (2.2-4.8) H 05/22/22 05:34 Lymph # (Auto) 1.1 X10^3/uL (1.3-2.9) L 05/22/22 05:34 Edgar # (Auto) 1.2 x10^3/uL (0.3-0.8) H 05/22/22 05:34 Eos # (Auto) 0.2 x10^3/uL (0.0-0.2) 05/22/22 05:34 Baso # (Auto) 0.2 X10^3/uL (0.0-0.1) H 05/22/22 05:34 Absolute Nucleated RBC 0.0 /100WBC 05/22/22 05:34 Sodium 135 mmol/L (136-145) L 05/22/22 05:34 Corrected Sodium 135 mmol/L (136-145) L 05/22/22 05:34 Potassium 3.9 mmol/L (3.5-5.1) 05/22/22 05:34 Chloride 99 mmol/L (98-107) 05/22/22 05:34 Carbon Dioxide 31.4 mmol/L (21-32) 05/22/22 05:34 BUN 14 mg/dL (7-18) 05/22/22 05:34 Creatinine 0.91 mg/dL (0.70-1.30) 05/22/22 05:34 Est GFR (MDRD) Af Amer > 60 (>60) 05/22/22 05:34 Est GFR (MDRD) Non-Af > 60 (>60) 05/22/22 05:34 Glucose 115 mg/dL (65-99) H 05/22/22 05:34 Calcium 8.0 mg/dL (8.5-10.1) L 05/22/22 05:34 Corrected Calcium 9.4 mg/dL (8.5-10.1) 05/22/22 05:34 Total Bilirubin 1.80 mg/dL (0.2-1.0) H 05/22/22 05:34 AST 91 Units/L (15-37) H 05/22/22 05:34 ALT 69 Units/L (12-78) 05/22/22 05:34 Alkaline Phosphatase 337 Units/L (46-116) H 05/22/22 05:34 Total Protein 6.4 g/dL (6.4-8.2) 05/22/22 05:34 Albumin 2.3 g/dL (3.4-5.0) L 05/22/22 05:34 Globulin 4.1 g/dL (2.5-4.5) 05/22/22 05:34 Albumin/Globulin Ratio 0.6 Ratio (1.1-2.1) L 05/22/22 05:34 Digoxin 0.54 ng/mL (0.9-2) L 05/22/22 05:34 - Plan (1) Weakness Status: Acute Plan: CONTINUE ROUTINE SWING BED LABS AND CONTINUE CURRENTLY MEDICATION REGIMEN, PHYSICAL THERAPY, REHAB (2) Hypertension Status: Chronic
[2022-05-22] MEDS: LANOXIN or DIGITEK PO SCH (13:54)
[2022-05-22 14:06] LABS: BILIRUBIN,URINE 1+ (NEGATIVE); BLOOD/HEMOGLOBIN,URINE 5+ (NEGATIVE); GLUCOSE, URINE NEGATIVE (NEGATIVE); KETONES,URINE 1+ (NEGATIVE); LEUKOCYTE ESTERASE ,URINE 2+ (NEGATIVE); NITRITES,URINE NEGATIVE (NEGATIVE); PROTEIN,URINE 2+ (NEGATIVE); UROBILINOGEN,URINE 2+ (NORMAL)
[2022-05-22 14:29] LABS: APPEARANCE,URINE SLIGHTLY HAZY (CLEAR); BACTERIA,URINE TRACE /HPF (NEGATIVE); COLOR,URINE YELLOW (YELLOW); RBC,URINE TNTC /HPF (0-3); SQUAMOUS EPITHELIAL CELL,UR RARE /HPF (NEGATIVE)
[2022-05-22] MEDS: SINGULAIR TAB 10 MG PO SCH (21:15)
[2022-05-22] MEDS: DESYREL PO SCH (21:15)
[2022-05-23] MEDS: PROAMATINE PO SCH ×3 (05:09→18:29)
[2022-05-23] MEDS ORDERED: LEXAPRO ONE (08:43)
--- NOTE | 2022-05-23 09:07 | PCM.PROG ---
Progress Note - Progress Note for Day of Date of Exam: 05/22/22 - Subjective Subjective: IS CURRENTLY SWINGBED STATUS FOR PHYSICAL THERAPY AND REHAB DUE TO DECONDITIONING S/P CHOLECYSTECTOMY. TODAY, HE IS ALERT AND ORIENTED, LYING IN BED ON MORNING ROUNDS. HE REPORTS GENERALIZED WEAKNESS, DECREASED APPETITE, DROWSINESS, AND AN OCCASIONAL NON-PRODUCTIVE COUGH. ON EXAMI NATION, HEART IS REGULAR IN RATE AND RHYTHM. BILATERAL LUNGS ARE CLEAR TO AUSCULTATION. ABDOMEN IS ROUND, SOFT, AND NON-TENDER WITH NORMAL BOWEL SOUNDS NOTED IN ALL QUADRANTS. LAPAROSCOPIC CHOLECYSTECTOMY SITES X 4 TO ABDOMEN ARE NOTED WITHOUT S/SX OF INFECTION. NO UPPER OR LOWER EXTREMITY EDEMA NOTED. HIS VITALS THIS MORNING ARE: 97.7-89-18-95%-102/69. LABS WERE OBTAINED. WBC 13.0, RBC 4.16, HGB 13.6, HCT 39.8, SODIUM 135, POTASSIUM 3.9, CHLORIDE 99, BUN 14, CREATININE 0.91, GLUCOSE 115, CALCIUM 8.0, TOTAL BILI 1.80, AST 91, ALT 69, ALK PHOS 337, TOTAL PROTEIN 6.4, ALBUMIN 2.3. DUE TO ELEVATED WBC, WE OBTAINED A URINALYSIS AND A CHEST XRAY. URINALYSIS REVEALED: WBC 5-10, RBC TNTC, LEUKOCYTES 2+, BACTERIA TRACE, BLOOD 5+. WE WILL SET UP A URINE CULTURE. CHEST XRAY REVEALED: Heart size remains normal with marked arteriosclerotic dilatation of thoracic aorta. A definite focal aneurysm is not identified. The lungs and pleural spaces are clear of active process. WE WILL ADD ROCEPHIN 1G IV DAILY, ALBUMIN 25% IV DAILY, MEGACE 40MG BID, AND DECREASE LEXAPRO TO 10MG DAILY. OTHERWISE, WE WILL CONTINUE WITH HIS CURRENT PLAN OF CARE. HE HAS BEEN COOPERATIVE WITH PHYSICAL THERAPY AND THEY WILL WORK WITH HIM DAILY. OTHERWISE, WE PLAN TO FOLLOW-UP WITH LABS Q3D AND CONTINUE TO MONITOR. TIME SPENT ON CLINICAL ASSESSMENT, REVIWING LABS AND IMAGING, DECISION MAKING, AND DOCUMENTATION GREATER THAN 45 MINUTES. - Past Medical Family Social History Past Med/Fam/Surg Hx: No changes since H&P Allergies: Allergies No Known Drug Allergies Allergy (Verified 08/18/18 17:34) - Review of Systems ROS: No change since H&P - Vital Signs and I&O's Vital Signs: Temperature 97.5 F Pulse Rate [Left Radial] 95 Pulse Rate 90 Respiratory Rate 18 Blood Pressure [Left Arm] 102/66 Blood Pressure [Right Arm] 112/65 Blood Pressure 102/61 O2 Sat by Pulse Oximetry 94 Intake and Output: Intake & Output 05/20/22 05/21/22 05/22/22 05/23/22 11:59 11:59 11:59 11:59 Intake Total 180 / 180 702 / 702 820 / 820 640 / 640 Output Total 900 / 900 600 / 600 250 / 250 660 / 660 Balance -720 / -720 102 / 102 570 / 570 -20 / -20 - Physical Exam Oriented: Normal Eyes: Normal Ear: Normal Nose: Normal Throat: Normal Respiratory: Diminished Cardiovascular: Irregular (regularly irregular, controlled rate) Auscultation: Bowel Sounds: Decreased Palpation: Normal Skin: Decreased Turgur Musculoskeletal: Back:Lumbar Psychiatric: Normal Mood Description: Calm Speech Pattern: Clear, Appropriate - Laboratory and Diagnostics Result Diagrams: 05/22/22 05:34 05/22/22 05:34 Labs: Laboratory WBC 13.0 X10^3/uL (3.6-10.0) H 05/22/22 05:34 RBC 4.16 X10^6/uL (4.7-6.0) L 05/22/22 05:34 Hgb 13.6 g/dL (13.5-18.0) 05/22/22 05:34 Hct 39.8 % (42.0-54.0) L 05/22/22 05:34 MCV 95.8 fL (80.0-100.0) 05/22/22 05:34 MCH 32.7 pg (27.0-34.0) 05/22/22 05:34 MCHC 34.1 g/dL (33.0-35.0) 05/22/22 05:34 RDW 15.8 % (11.6-16.5) 05/22/22 05:34 Plt Count 236 X10^3/uL (150.0-450.0) 05/22/22 05:34 MPV 9.0 fL (7.4-11.0) 05/22/22 05:34 Neut % (Auto) 79.6 % (42.0-75.0) H 05/22/22 05:34 Lymph % (Auto) 8.3 % (21.0-51.0) L 05/22/22 05:34 [place] % (Auto) 9.0 % (0.0-13.0) 05/22/22 05:34 Eos % (Auto) 1.9 % (0.9-2.9) 05/22/22 05:34 Baso % (Auto) 1.2 % (0.2-1.0) H 05/22/22 05:34 Neut # (Auto) 10.4 x10^3/uL (2.2-4.8) H 05/22/22 05:34 Lymph # (Auto) 1.1 X10^3/uL (1.3-2.9) L 05/22/22 05:34 [place] # (Auto) 1.2 x10^3/uL (0.3-0.8) H 05/22/22 05:34 Eos # (Auto) 0.2 x10^3/uL (0.0-0.2) 05/22/22 05:34 Baso # (Auto) 0.2 X10^3/uL (0.0-0.1) H 05/22/22 05:34 Absolute Nucleated RBC 0.0 /100WBC 05/22/22 05:34 Sodium 135 mmol/L (136-145) L 05/22/22 05:34 Corrected Sodium 135 mmol/L (136-145) L 05/22/22 05:34 Potassium 3.9 mmol/L (3.5-5.1) 05/22/22 05:34 Chloride 99 mmol/L (98-107) 05/22/22 05:34 Carbon Dioxide 31.4 mmol/L (21-32) 05/22/22 05:34 BUN 14 mg/dL (7-18) 05/22/22 05:34 Creatinine 0.91 mg/dL (0.70-1.30) 05/22/22 05:34 Est GFR (MDRD) Af Amer > 60 (>60) 05/22/22 05:34 Est GFR (MDRD) Non-Af > 60 (>60) 05/22/22 05:34 Glucose 115 mg/dL (65-99) H 05/22/22 05:34 Calcium 8.0 mg/dL (8.5-10.1) L 05/22/22 05:34 Corrected Calcium 9.4 mg/dL (8.5-10.1) 05/22/22 05:34 Total Bilirubin 1.80 mg/dL (0.2-1.0) H 05/22/22 05:34 AST 91 Units/L (15-37) H 05/22/22 05:34 ALT 69 Units/L (12-78) 05/22/22 05:34 Alkaline Phosphatase 337 Units/L (46-116) H 05/22/22 05:34 Total Protein 6.4 g/dL (6.4-8.2) 05/22/22 05:34 Albumin 2.3 g/dL (3.4-5.0) L 05/22/22 05:34 Globulin 4.1 g/dL (2.5-4.5) 05/22/22 05:34 Albumin/Globulin Ratio 0.6 Ratio (1.1-2.1) L 05/22/22 05:34 Specimen Type Clean catch urine 05/22/22 13:50 Urine Color Yellow (YELLOW) 05/22/22 13:50 Urine Appearance Slightly hazy (CLEAR) 05/22/22 13:50 Urine pH 7.0 (5.0 - 8.0) 05/22/22 13:50 Ur Specific [place] 1.010 (1.000-1.030) 05/22/22 13:50 Urine Protein 2+ (NEGATIVE) 05/22/22 13:50 Urine Glucose (UA) Negative (NEGATIVE) 05/22/22 13:50 Urine Ketones 1+ (NEGATIVE) 05/22/22 13:50 Urine Blood 5+ (NEGATIVE) 05/22/22 13:50 Urine Nitrite Negative (NEGATIVE) 05/22/22 13:50 Urine Bilirubin 1+ (NEGATIVE) 05/22/22 13:50 Urine Urobilinogen 2+ (NORMAL) 05/22/22 13:50 Ur Leukocyte Esterase 2+ (NEGATIVE) 05/22/22 13:50 Urine RBC Tntc /HPF (0-3) A 05/22/22 13:50 Urine WBC 5-10 /HPF (0-5) A 05/22/22 13:50 Ur Squamous Epith Cells Rare /HPF (NEGATIVE) 05/22/22 13:50 Urine Bacteria Trace /HPF (NEGATIVE) 05/22/22 13:50 Ur Culture Indicated? No/not indicated 05/22/22 13:50 Digoxin 0.54 ng/mL (0.9-2) L 05/22/22 05:34 - Plan (1) Physical deconditioning Status: Acute Plan: PHYSICAL THERAPY AND REHAB, ALBUMIN 25% IV DAILY, ROCEPHIN 1G IV DAILY, MEGACE 40MG BID, LEXAPRO 10MG DAILY, RESUME HOME MEDS (2) S/P cholecystectomy Status: Acute (3) Weakness Status: Acute (4) UTI (urinary tract infection) Status: Acute Qualifiers: Urinary tract infection type: acute cystitis Hematuria presence: with hematuria Qualified Code(s): N30.01 - Acute cystitis with hematuria Plan: ROCEPHIN 1G IV DAILY (5) Malnutrition Status: Acute Qualifiers: Malnutrition type: protein-calorie malnutrition Protein-calorie malnutrition severity: mild Qualified Code(s): E44.1 - Mild protein-calorie malnutrition (6) Hypoalbuminemia due to protein-calorie malnutrition Status: Acute (7) Hypertension Status: Chronic Qualifiers: Hypertension type: primary hypertension Qualified Code(s): I10 - Essential (primary) hypertension (8) Hyperlipidemia Status: Chronic Qualifiers: Hyperlipidemia type: mixed hyperlipidemia Qualified Code(s): E78.2 - Mixed hyperlipidemia
[2022-05-23] MEDS: LEXAPRO PO SCH (09:29)
[2022-05-23] MEDS: DETROL LA 4 MG CAP EXT REL PO SCH (09:29)
[2022-05-23] MEDS: LANOXIN or DIGITEK PO SCH (09:29)
[2022-05-23] MEDS: PROTONIX TAB 40 MG PO SCH (09:30)
[2022-05-23] MEDS: ELIQUIS PO SCH ×2 (09:30→20:29)
[2022-05-23] MEDS: FLOMAX PO SCH (09:30)
[2022-05-23] MEDS: ASPIRIN EC 81 MG PO SCH (09:30)
[2022-05-23] MEDS: ZyrTEC TAB 10 MG PO SCH (09:30)
[2022-05-23] MEDS: INDERAL TAB 10 MG PO SCH (09:30)
[2022-05-23] MEDS: MEGACE PO SCH ×2 (09:31→20:29)
[2022-05-23] MEDS: NYSTATIN POWDER TOP SCH ×2 (09:31→20:30)
[2022-05-23] MEDS ORDERED: ROCEPHIN VIAL 1 GRAM 1 G in NS 100 ML IV + SPIKE MINIBAG* 100 ML IV SCH (10:00)
[2022-05-23] MEDS: ALBUMIN HUMAN 25%- 100 ML 100 ML IV SCH (11:28)
[2022-05-23] MEDS: ROCEPHIN VIAL 1 GRAM 1 G in NS 100 ML IV 100 ML IV SCH (13:22)
[2022-05-23] MEDS: DESYREL PO SCH (20:29)
[2022-05-23] MEDS: SINGULAIR TAB 10 MG PO SCH (20:29)
[2022-05-24] MEDS: INDERAL TAB 10 MG PO SCH ×3 (03:56→20:04)
[2022-05-24] MEDS: PROAMATINE PO SCH ×3 (05:57→17:57)
[2022-05-24 06:12] LABS: BASOPHILS # (AUTO) 0.1 X10^3/uL (0.0-0.1); BASOPHILS % (AUTO) 1.1 % (0.2-1.0); EOSINOPHILS # (AUTO) 0.3 x10^3/uL (0.0-0.2); EOSINOPHILS % (AUTO) 3.2 % (0.9-2.9); HEMATOCRIT 36.5 % (42.0-54.0); HEMOGLOBIN 12.5 g/dL (13.5-18.0); LYMPHOCYTES # (AUTO) 1.2 X10^3/uL (1.3-2.9); LYMPHOCYTES % (AUTO) 11.9 % (21.0-51.0); MEAN CORPUSCULAR HEMOGLOBIN 32.5 pg (27.0-34.0); MEAN CORPUSCULAR HGB CONC 34.2 g/dL (33.0-35.0); MEAN CORPUSCULAR VOLUME 95.1 fL (80.0-100.0); MEAN PLATELET VOLUME 9.3 fL (7.4-11.0); MONOCYTES % (AUTO) 10.1 % (0.0-13.0); NEUTROPHILS # (AUTO) 7.6 x10^3/uL (2.2-4.8); NEUTROPHILS % (AUTO) 73.7 % (42.0-75.0); RED BLOOD COUNT 3.84 X10^6/uL (4.7-6.0); RED CELL DISTRIBUTION WIDTH 15.7 % (11.6-16.5); WHITE BLOOD COUNT 10.3 X10^3/uL (3.6-10.0)
[2022-05-24 06:43] LABS: ALANINE AMINOTRANSFERASE 56 Units/L (12-78); ALBUMIN 2.5 g/dL (3.4-5.0); ALKALINE PHOSPHATASE 292 Units/L (46-116); ASPARTATE AMINO TRANSFERASE 80 Units/L (15-37); BLOOD UREA NITROGEN 16 mg/dL (7-18); CALCIUM 8.2 mg/dL (8.5-10.1); CARBON DIOXIDE 31.1 mmol/L (21-32); CHLORIDE 103 mmol/L (98-107); COR CA(FOR HYPOALB) 9.4 mg/dL (8.5-10.1); CREATININE 0.95 mg/dL (0.70-1.30); SODIUM 141 mmol/L (136-145); eGFR NON BLACK RACES > 60 (>60)
[2022-05-24] MEDS ORDERED: LEXAPRO ONE (10:34)
[2022-05-24] MEDS: MEGACE PO SCH ×2 (10:46→20:04)
[2022-05-24] MEDS: ROCEPHIN VIAL 1 GRAM 1 G in NS 100 ML IV 100 ML IV SCH (10:46)
[2022-05-24] MEDS: DETROL LA 4 MG CAP EXT REL PO SCH (10:47)
[2022-05-24] MEDS: LEXAPRO PO SCH (10:47)
[2022-05-24] MEDS: LANOXIN or DIGITEK PO SCH (10:48)
[2022-05-24] MEDS: FLOMAX PO SCH (10:49)
[2022-05-24] MEDS: ELIQUIS PO SCH ×2 (10:49→20:04)
[2022-05-24] MEDS: PROTONIX TAB 40 MG PO SCH (10:49)
[2022-05-24] MEDS: ASPIRIN EC 81 MG PO SCH (10:49)
[2022-05-24] MEDS: ZyrTEC TAB 10 MG PO SCH (10:50)
[2022-05-24] MEDS: ALBUMIN HUMAN 25%- 100 ML 100 ML IV SCH (10:51)
[2022-05-24] MEDS: NYSTATIN POWDER TOP SCH ×2 (12:04→20:05)
[2022-05-24] MEDS: SINGULAIR TAB 10 MG PO SCH (20:04)
[2022-05-25] MEDS ORDERED: K-RIDER 10 MEQ/NS 100 ML 10 MEQ/100 ML BAG IV PRN (01:43)
[2022-05-25] MEDS ORDERED: POTASSIUM CHLORIDE LIQ 20 MEQ UDC PO PRN (01:43)
[2022-05-25] MEDS ORDERED: MAGNESIUM SULFATE 1 GRAM/100 mL PREMIX 1 G/100 ML BAG IV PRN (01:43)
[2022-05-25] MEDS ORDERED: MICRO K EXTEN CAP 10 MEQ PO PRN (01:43)
[2022-05-25] MEDS ORDERED: KLOR-CON PO PRN (01:43)
[2022-05-25] MEDS ORDERED: K-DUR TAB 20 MEQ PO PRN (01:43)
[2022-05-25] MEDS: PROAMATINE PO SCH ×3 (05:04→17:58)
[2022-05-25 06:02] LABS: BASOPHILS # (AUTO) 0.1 X10^3/uL (0.0-0.1); EOSINOPHILS # (AUTO) 0.4 x10^3/uL (0.0-0.2); EOSINOPHILS % (AUTO) 3.9 % (0.9-2.9); HEMATOCRIT 35.4 % (42.0-54.0); LYMPHOCYTES # (AUTO) 1.1 X10^3/uL (1.3-2.9); LYMPHOCYTES % (AUTO) 9.6 % (21.0-51.0); MEAN CORPUSCULAR HEMOGLOBIN 32.3 pg (27.0-34.0); MEAN PLATELET VOLUME 9.1 fL (7.4-11.0); MONOCYTES % (AUTO) 8.6 % (0.0-13.0); NEUTROPHILS # (AUTO) 8.7 x10^3/uL (2.2-4.8); NEUTROPHILS % (AUTO) 76.9 % (42.0-75.0); RED BLOOD COUNT 3.72 X10^6/uL (4.7-6.0); RED CELL DISTRIBUTION WIDTH 15.9 % (11.6-16.5); WHITE BLOOD COUNT 11.3 X10^3/uL (3.6-10.0)
[2022-05-25 06:30] LABS: ALANINE AMINOTRANSFERASE 56 Units/L (12-78); ALBUMIN 2.8 g/dL (3.4-5.0); ALKALINE PHOSPHATASE 291 Units/L (46-116); ASPARTATE AMINO TRANSFERASE 79 Units/L (15-37); BLOOD UREA NITROGEN 15 mg/dL (7-18); CALCIUM 8.5 mg/dL (8.5-10.1); CARBON DIOXIDE 31.3 mmol/L (21-32); CHLORIDE 103 mmol/L (98-107); COR CA(FOR HYPOALB) 9.5 mg/dL (8.5-10.1); CREATININE 0.91 mg/dL (0.70-1.30); SODIUM 140 mmol/L (136-145); TOTAL PROTEIN 6.5 g/dL (6.4-8.2); eGFR NON BLACK RACES > 60 (>60)
[2022-05-25] MEDS ORDERED: LEXAPRO ONE (08:10)
[2022-05-25] MEDS: ALBUMIN HUMAN 25%- 100 ML 100 ML IV SCH (09:09)
[2022-05-25] MEDS: ROCEPHIN VIAL 1 GRAM 1 G in NS 100 ML IV 100 ML IV SCH (09:10)
[2022-05-25] MEDS: DETROL LA 4 MG CAP EXT REL PO SCH (09:12)
[2022-05-25] MEDS: MEGACE PO SCH ×2 (09:12→20:02)
[2022-05-25] MEDS: INDERAL TAB 10 MG PO SCH ×2 (09:12→20:02)
[2022-05-25] MEDS: ASPIRIN EC 81 MG PO SCH (09:12)
[2022-05-25] MEDS: LANOXIN or DIGITEK PO SCH (09:12)
[2022-05-25] MEDS: PROTONIX TAB 40 MG PO SCH (09:12)
[2022-05-25] MEDS: FLOMAX PO SCH (09:12)
[2022-05-25] MEDS: LEXAPRO PO SCH (09:13)
[2022-05-25] MEDS: NYSTATIN POWDER TOP SCH ×2 (09:13→20:03)
[2022-05-25] MEDS: ELIQUIS PO SCH ×2 (09:13→20:02)
[2022-05-25] MEDS: ZyrTEC TAB 10 MG PO SCH (09:14)
[2022-05-25] MEDS: SINGULAIR TAB 10 MG PO SCH (20:03)
[2022-05-26] MEDS: PROAMATINE PO SCH ×3 (05:01→18:19)
[2022-05-26] MEDS ORDERED: LEXAPRO ONE (07:56)
[2022-05-26] MEDS: FLOMAX PO SCH (08:37)
[2022-05-26] MEDS: MEGACE PO SCH ×2 (08:37→20:09)
[2022-05-26] MEDS: INDERAL TAB 10 MG PO SCH ×3 (08:37→20:10)
[2022-05-26] MEDS: DETROL LA 4 MG CAP EXT REL PO SCH (08:38)
[2022-05-26] MEDS: ASPIRIN EC 81 MG PO SCH (08:38)
[2022-05-26] MEDS: LEXAPRO PO SCH (08:38)
[2022-05-26] MEDS: PROTONIX TAB 40 MG PO SCH (08:38)
[2022-05-26] MEDS: ELIQUIS PO SCH ×2 (08:39→20:09)
[2022-05-26] MEDS: ALBUMIN HUMAN 25%- 100 ML 100 ML IV SCH (08:39)
[2022-05-26] MEDS: ZyrTEC TAB 10 MG PO SCH (08:39)
[2022-05-26] MEDS: LANOXIN or DIGITEK PO SCH (10:05)
[2022-05-26] MEDS: NYSTATIN POWDER TOP SCH ×2 (10:05→20:11)
[2022-05-26] MEDS: ROCEPHIN VIAL 1 GRAM 1 G in NS 100 ML IV 100 ML IV SCH (10:05)
--- NOTE | 2022-05-26 11:24 | PCM.PROG ---
Progress Note - Progress Note for Day of Date of Exam: 05/26/22 - Subjective Subjective: IS STATUS POST LAPROSCOPIC CHOLECYSTECTOMY. PRIOR TO CHOLECYSTECTOMY, HE WAS TREATED AT [facility] FOR TRANSAMINITIS, CHOLEDOCHOLITHIASIS. HE PRESENTED BACK TO OUR FACILITY ON 05/19/22 FOR PHYSICAL THERAPY AND REHAB DUE TO DECONDITIONING AND MALNUTRITION. HE IS ALSO BEING TREATED FOR A URINARY TRACT INFECTION. HE HAS A PMH OF CAD, A-FIB, GERD, HTN, HYPERLIPIDEMIA, PULMONARY FIBROSIS, CHRONIC UTIs, AAA REPAIR, BPH, AND ANXIETY. TODAY, HE IS LYING IN BED WITH EYES CLOSED ON MORNING ROUNDS. HIS SPOUSE IS AT BEDSIDE. PATIENT AWAKENS TO VERBAL STIMULI. HE COMPLAINS OF WEAKNESS AND DECREASED APPETITE. HIS SPOUSE REPORTS THAT HE HAS HAD INCREASED DROWSINESS FOR THE PAST FEW DAYS. ON EXAMINATION, HEART IS REGULAR IN RATE AND RHYTHM. BILATERAL LUNGS ARE CLEAR TO AUSCULTATION. ABDOMEN IS FLAT, SOFT, AND NON-TENDER WITH NORMAL BOWEL SOUNDS NOTED IN ALL QUADRANTS. LAPROSCOPIC SURGICAL WOUNDS NOTED WITHOUT S/SX INFECTION. NO UPPER OR LOWER EXTREMITY EDEMA NOTED. HIS V ITALS THIS MORNING WERE: 98.3-79-17-93%-100/64. LABS WERE OBTAINED. WBC 10.3, RBC 3.84, HGB 12.5, HCT 36.5, SODIUM 140, POTASSIUM 4.0, CHLORIDE 103, BUN 15, CREATININE 0.91, GLUCOSE 99, CALCIUM 8.5, TOTAL BILI 1.20, AST 79, ALT 56, ALK PHOS 291, TOTAL PROTEIN 6.5, ALBUMIN 2.8. SHE IS CURRENTLY RECEIVING ROCEPHIN 1G IV DAILY, ALBUMIN 25% IV DAILY, MEGACE 40 MG PO BID, THE POTASSIUM AND MAGNESIUM PROTOCOL, AND HIS HOME MEDICATIONS WERE RESUMED. OTHERWISE, WE WILL FOLLOW-UP WITH AM LABS AND CONTINUE TO MONITOR. TIME SPENT ON CLINICAL ASSESSMENT, REVIWING LABS AND IMAGING, DECISION MAKING, AND DOCUMENTATION GREATER THAN 45 MINUTES. - Past Medical Family Social History Past Med/Fam/Surg Hx: No changes since H&P Allergies: Allergies No Known Drug Allergies Allergy (Verified 08/18/18 17:34) - Review of Systems ROS: No change since H&P - Vital Signs and I&O's Vital Signs: Temperature 98.9 F Pulse Rate [Left Radial] 81 Pulse Rate 81 Respiratory Rate 20 Blood Pressure [Left Arm] 100/60 Blood Pressure [Right Arm] 112/65 Blood Pressure 102/61 O2 Sat by Pulse Oximetry 95 Intake and Output: Intake & Output 05/23/22 05/24/22 05/25/22 05/26/22 11:59 11:59 11:59 11:59 Intake Total 640 / 640 1120 / 1120 1200 / 1200 358 / 358 Output Total 660 / 660 475 / 475 910 / 910 500 / 500 Balance -20 / -20 645 / 645 290 / 290 -142 / -142 - Physical Exam Oriented: Normal Eyes: Normal Ear: Normal Nose: Normal Throat: Normal Respiratory: Diminished Cardiovascular: Irregular (regularly irregular, controlled rate) Auscultation: Bowel Sounds: Decreased Palpation: Normal Tenderness: Normal Skin: Decreased Turgur Musculoskeletal: Back:Lumbar Psychiatric: Normal Mood Description: Calm Speech Pattern: Clear, Appropriate - Laboratory and Diagnostics Result Diagrams: 05/25/22 05:32 05/25/22 05:32 Labs: 05/23/22 11:26 Urine,Clean Catch Urine Culture - Final Laboratory WBC 11.3 X10^3/uL (3.6-10.0) H 05/25/22 05:32 RBC 3.72 X10^6/uL (4.7-6.0) L 05/25/22 05:32 Hgb 12.0 g/dL (13.5-18.0) L 05/25/22 05:32 Hct 35.4 % (42.0-54.0) L 05/25/22 05:32 MCV 95.0 fL (80.0-100.0) 05/25/22 05:32 MCH 32.3 pg (27.0-34.0) 05/25/22 05:32 MCHC 34.0 g/dL (33.0-35.0) 05/25/22 05:32 RDW 15.9 % (11.6-16.5) 05/25/22 05:32 Plt Count 246 X10^3/uL (150.0-450.0) 05/25/22 05:32 MPV 9.1 fL (7.4-11.0) 05/25/22 05:32 Neut % (Auto) 76.9 % (42.0-75.0) H 05/25/22 05:32 Lymph % (Auto) 9.6 % (21.0-51.0) L 05/25/22 05:32 [place] % (Auto) 8.6 % (0.0-13.0) 05/25/22 05:32 Eos % (Auto) 3.9 % (0.9-2.9) H 05/25/22 05:32 Baso % (Auto) 1.0 % (0.2-1.0) 05/25/22 05:32 Neut # (Auto) 8.7 x10^3/uL (2.2-4.8) H 05/25/22 05:32 Lymph # (Auto) 1.1 X10^3/uL (1.3-2.9) L 05/25/22 05:32 [place] # (Auto) 1.0 x10^3/uL (0.3-0.8) H 05/25/22 05:32 Eos # (Auto) 0.4 x10^3/uL (0.0-0.2) H 05/25/22 05:32 Baso # (Auto) 0.1 X10^3/uL (0.0-0.1) 05/25/22 05:32 Absolute Nucleated RBC 0.1 /100WBC 05/25/22 05:32 Sodium 140 mmol/L (136-145) 05/25/22 05:32 Corrected Sodium TNP 05/25/22 05:32 Potassium 4.0 mmol/L (3.5-5.1) 05/25/22 05:32 Chloride 103 mmol/L (98-107) 05/25/22 05:32 Carbon Dioxide 31.3 mmol/L (21-32) 05/25/22 05:32 BUN 15 mg/dL (7-18) 05/25/22 05:32 Creatinine 0.91 mg/dL (0.70-1.30) 05/25/22 05:32 Est GFR (MDRD) Af Amer > 60 (>60) 05/25/22 05:32 Est GFR (MDRD) Non-Af > 60 (>60) 05/25/22 05:32 Glucose 99 mg/dL (65-99) 05/25/22 05:32 Calcium 8.5 mg/dL (8.5-10.1) 05/25/22 05:32 Corrected Calcium 9.5 mg/dL (8.5-10.1) 05/25/22 05:32 Total Bilirubin 1.20 mg/dL (0.2-1.0) H 05/25/22 05:32 AST 79 Units/L (15-37) H 05/25/22 05:32 ALT 56 Units/L (12-78) 05/25/22 05:32 Alkaline Phosphatase 291 Units/L (46-116) H 05/25/22 05:32 Total Protein 6.5 g/dL (6.4-8.2) 05/25/22 05:32 Albumin 2.8 g/dL (3.4-5.0) L 05/25/22 05:32 Globulin 3.7 g/dL (2.5-4.5) 05/25/22 05:32 Albumin/Globulin Ratio 0.8 Ratio (1.1-2.1) L 05/25/22 05:32 Specimen Type Clean catch urine 05/22/22 13:50 Urine Color Yellow (YELLOW) 05/22/22 13:50 Urine Appearance Slightly hazy (CLEAR) 05/22/22 13:50 Urine pH 7.0 (5.0 - 8.0) 05/22/22 13:50 Ur Specific [place] 1.010 (1.000-1.030) 05/22/22 13:50 Urine Protein 2+ (NEGATIVE) 05/22/22 13:50 Urine Glucose (UA) Negative (NEGATIVE) 05/22/22 13:50 Urine Ketones 1+ (NEGATIVE) 05/22/22 13:50 Urine Blood 5+ (NEGATIVE) 05/22/22 13:50 Urine Nitrite Negative (NEGATIVE) 05/22/22 13:50 Urine Bilirubin 1+ (NEGATIVE) 05/22/22 13:50 Urine Urobilinogen 2+ (NORMAL) 05/22/22 13:50 Ur Leukocyte Esterase 2+ (NEGATIVE) 05/22/22 13:50 Urine RBC Tntc /HPF (0-3) A 05/22/22 13:50 Urine WBC 5-10 /HPF (0-5) A 05/22/22 13:50 Ur Squamous Epith Cells Rare /HPF (NEGATIVE) 05/22/22 13:50 Urine Bacteria Trace /HPF (NEGATIVE) 05/22/22 13:50 Ur Culture Indicated? No/not indicated 05/22/22 13:50 Digoxin 0.47 ng/mL (0.9-2) L 05/26/22 08:48 - Plan (1) Physical deconditioning Status: Acute Plan: PHYSICAL THERAPY AND REHAB, ALBUMIN 25% IV DAILY, ROCEPHIN 1G IV DAILY, MEGACE 40MG BID, LEXAPRO 10MG DAILY, RESUME HOME MEDS (2) S/P cholecystectomy Status: Acute (3) Weakness Status: Acute (4) UTI (urinary tract infection) Status: Acute Qualifiers: Urinary tract infection type: acute cystitis Hematuria presence: with hematuria Qualified Code(s): N30.01 - Acute cystitis with hematuria (5) Malnutrition Status: Acute Qualifiers: Malnutrition type: protein-calorie malnutrition Protein-calorie malnutr ition severity: mild Qualified Code(s): E44.1 - Mild protein-calorie malnutrition (6) Hypoalbuminemia due to protein-calorie malnutrition Status: Acute (7) Hypertension Status: Chronic Qualifiers: Hypertension type: primary hypertension Qualified Code(s): I10 - Essential (primary) hypertension (8) Hyperlipidemia Status: Chronic Qualifiers: Hyperlipidemia type: mixed hyperlipidemia Qualified Code(s): E78.2 - Mixed hyperlipidemia
[2022-05-26] MEDS: SINGULAIR TAB 10 MG PO SCH (20:10)
[2022-05-26] MEDS: DESYREL PO SCH (20:10)
[2022-05-27] MEDS: PROAMATINE PO SCH ×3 (05:11→18:52)
[2022-05-27] MEDS ORDERED: LEXAPRO ONE (08:18)
[2022-05-27] MEDS: ALBUMIN HUMAN 25%- 100 ML 100 ML IV SCH (09:04)
[2022-05-27] MEDS: DETROL LA 4 MG CAP EXT REL PO SCH (09:05)
[2022-05-27] MEDS: MEGACE PO SCH ×2 (09:05→20:23)
[2022-05-27] MEDS: LANOXIN or DIGITEK PO SCH (09:06)
[2022-05-27] MEDS: ASPIRIN EC 81 MG PO SCH (09:07)
[2022-05-27] MEDS: ZyrTEC TAB 10 MG PO SCH (09:08)
[2022-05-27] MEDS: FLOMAX PO SCH (09:08)
[2022-05-27] MEDS: INDERAL TAB 10 MG PO SCH ×2 (09:08→20:23)
[2022-05-27] MEDS: LEXAPRO PO SCH (09:09)
[2022-05-27] MEDS: ELIQUIS PO SCH ×2 (09:10→20:24)
[2022-05-27] MEDS: PROTONIX TAB 40 MG PO SCH (09:10)
[2022-05-27] MEDS: NYSTATIN POWDER TOP SCH ×2 (09:11→20:25)
[2022-05-27] MEDS: ROCEPHIN VIAL 1 GRAM 1 G in NS 100 ML IV 100 ML IV SCH (10:46)
[2022-05-27] MEDS: SINGULAIR TAB 10 MG PO SCH (20:23)
[2022-05-27] MEDS: DESYREL PO SCH (20:29)
[2022-05-28] MEDS: PROAMATINE PO SCH ×3 (05:03→17:45)
[2022-05-28 05:44] LABS: BASOPHILS # (AUTO) 0.1 X10^3/uL (0.0-0.1); BASOPHILS % (AUTO) 0.6 % (0.2-1.0); EOSINOPHILS # (AUTO) 0.5 x10^3/uL (0.0-0.2); EOSINOPHILS % (AUTO) 4.9 % (0.9-2.9); HEMATOCRIT 38.3 % (42.0-54.0); HEMOGLOBIN 12.8 g/dL (13.5-18.0); LYMPHOCYTES # (AUTO) 1.3 X10^3/uL (1.3-2.9); LYMPHOCYTES % (AUTO) 11.4 % (21.0-51.0); MEAN CORPUSCULAR HGB CONC 33.6 g/dL (33.0-35.0); MEAN CORPUSCULAR VOLUME 95.2 fL (80.0-100.0); MEAN PLATELET VOLUME 8.9 fL (7.4-11.0); MONOCYTES % (AUTO) 9.1 % (0.0-13.0); NEUTROPHILS # (AUTO) 8.2 x10^3/uL (2.2-4.8); RED BLOOD COUNT 4.02 X10^6/uL (4.7-6.0); RED CELL DISTRIBUTION WIDTH 15.6 % (11.6-16.5); WHITE BLOOD COUNT 11.1 X10^3/uL (3.6-10.0)
[2022-05-28 05:58] LABS: ALANINE AMINOTRANSFERASE 56 Units/L (12-78); ALBUMIN 3.5 g/dL (3.4-5.0); ALKALINE PHOSPHATASE 241 Units/L (46-116); ASPARTATE AMINO TRANSFERASE 61 Units/L (15-37); BLOOD UREA NITROGEN 12 mg/dL (7-18); CALCIUM 8.8 mg/dL (8.5-10.1); CHLORIDE 103 mmol/L (98-107); CREATININE 1.08 mg/dL (0.70-1.30); SODIUM 142 mmol/L (136-145); TOTAL PROTEIN 7.1 g/dL (6.4-8.2); eGFR NON BLACK RACES > 60 (>60)
[2022-05-28] MEDS ORDERED: LEXAPRO ONE (08:13)
[2022-05-28] MEDS: MEGACE PO SCH ×2 (08:24→20:15)
[2022-05-28] MEDS: PROTONIX TAB 40 MG PO SCH (08:25)
[2022-05-28] MEDS: ZyrTEC TAB 10 MG PO SCH (08:25)
[2022-05-28] MEDS: DETROL LA 4 MG CAP EXT REL PO SCH (08:27)
[2022-05-28] MEDS: ASPIRIN EC 81 MG PO SCH (08:27)
[2022-05-28] MEDS: ELIQUIS PO SCH ×2 (08:28→20:15)
[2022-05-28] MEDS: INDERAL TAB 10 MG PO SCH ×2 (08:30→20:15)
[2022-05-28] MEDS: LEXAPRO PO SCH (08:32)
[2022-05-28] MEDS: LANOXIN or DIGITEK PO SCH (08:37)
[2022-05-28] MEDS: FLOMAX PO SCH (08:40)
[2022-05-28] MEDS: ALBUMIN HUMAN 25%- 100 ML 100 ML IV SCH (08:40)
[2022-05-28] MEDS: NYSTATIN POWDER TOP SCH ×2 (09:36→20:36)
[2022-05-28] MEDS: ROCEPHIN VIAL 1 GRAM 1 G in NS 100 ML IV 100 ML IV SCH (10:29)
[2022-05-28] MEDS: SINGULAIR TAB 10 MG PO SCH (20:15)
[2022-05-28] MEDS: DESYREL PO SCH (20:15)
[2022-05-29] MEDS: PROAMATINE PO SCH ×3 (05:07→17:42)
[2022-05-29] MEDS ORDERED: LEXAPRO ONE (08:04)
[2022-05-29] MEDS: DETROL LA 4 MG CAP EXT REL PO SCH (08:46)
[2022-05-29] MEDS: MEGACE PO SCH ×2 (08:46→20:16)
[2022-05-29] MEDS: LANOXIN or DIGITEK PO SCH (08:46)
[2022-05-29] MEDS: ELIQUIS PO SCH ×2 (08:46→20:16)
[2022-05-29] MEDS: ZyrTEC TAB 10 MG PO SCH (08:47)
[2022-05-29] MEDS: FLOMAX PO SCH (08:47)
[2022-05-29] MEDS: LEXAPRO PO SCH (08:47)
[2022-05-29] MEDS: ASPIRIN EC 81 MG PO SCH (08:47)
[2022-05-29] MEDS: INDERAL TAB 10 MG PO SCH (08:47)
[2022-05-29] MEDS: ROCEPHIN VIAL 1 GRAM 1 G in NS 100 ML IV 100 ML IV SCH (08:47)
[2022-05-29] MEDS: PROTONIX TAB 40 MG PO SCH (08:47)
[2022-05-29] MEDS: ALBUMIN HUMAN 25%- 100 ML 100 ML IV SCH (08:48)
[2022-05-29] MEDS: NYSTATIN POWDER TOP SCH ×2 (08:50→21:54)
[2022-05-29] MEDS ORDERED: LANOXIN or DIGITEK PO NR (10:00)
[2022-05-29] MEDS: DESYREL PO SCH (20:16)
[2022-05-29] MEDS: SINGULAIR TAB 10 MG PO SCH (20:16)
[2022-05-30] MEDS: PROAMATINE PO SCH ×3 (05:28→17:08)
[2022-05-30] MEDS ORDERED: LEXAPRO ONE (08:28)
[2022-05-30] MEDS: ALBUMIN HUMAN 25%- 100 ML 100 ML IV SCH (09:01)
[2022-05-30] MEDS: LEXAPRO PO SCH (09:02)
[2022-05-30] MEDS: MEGACE PO SCH ×2 (09:02→20:25)
[2022-05-30] MEDS: ZyrTEC TAB 10 MG PO SCH (09:02)
[2022-05-30] MEDS: PROTONIX TAB 40 MG PO SCH (09:02)
[2022-05-30] MEDS: DETROL LA 4 MG CAP EXT REL PO SCH (09:02)
[2022-05-30] MEDS: ASPIRIN EC 81 MG PO SCH (09:03)
[2022-05-30] MEDS: LANOXIN PO SCH (09:03)
[2022-05-30] MEDS: NYSTATIN POWDER TOP SCH ×2 (09:03→20:25)
[2022-05-30] MEDS: ELIQUIS PO SCH ×2 (09:03→20:25)
[2022-05-30] MEDS: FLOMAX PO SCH (09:03)
[2022-05-30] MEDS ORDERED: NS 100 ML IV 100 ML IV PRN (09:04)
[2022-05-30] MEDS ORDERED: NS 100 ML IV 100 ML ONE (09:08)
[2022-05-30] MEDS: ROCEPHIN VIAL 1 GRAM 1 G in NS 100 ML IV 100 ML IV SCH (09:57)
[2022-05-30] MEDS: DESYREL PO SCH (20:25)
[2022-05-30] MEDS: SINGULAIR TAB 10 MG PO SCH (20:25)
[2022-05-31] MEDS: PROAMATINE PO SCH ×3 (05:09→18:08)
[2022-05-31 06:26] LABS: BASOPHILS # (AUTO) 0.1 X10^3/uL (0.0-0.1); BASOPHILS % (AUTO) 0.7 % (0.2-1.0); EOSINOPHILS # (AUTO) 0.5 x10^3/uL (0.0-0.2); EOSINOPHILS % (AUTO) 5.8 % (0.9-2.9); HEMATOCRIT 35.7 % (42.0-54.0); HEMOGLOBIN 12.3 g/dL (13.5-18.0); LYMPHOCYTES # (AUTO) 1.3 X10^3/uL (1.3-2.9); LYMPHOCYTES % (AUTO) 15.4 % (21.0-51.0); MEAN CORPUSCULAR HEMOGLOBIN 32.8 pg (27.0-34.0); MEAN CORPUSCULAR HGB CONC 34.4 g/dL (33.0-35.0); MEAN CORPUSCULAR VOLUME 95.3 fL (80.0-100.0); MEAN PLATELET VOLUME 8.9 fL (7.4-11.0); MONOCYTES # (AUTO) 0.8 x10^3/uL (0.3-0.8); MONOCYTES % (AUTO) 9.5 % (0.0-13.0); NEUTROPHILS # (AUTO) 5.9 x10^3/uL (2.2-4.8); NEUTROPHILS % (AUTO) 68.6 % (42.0-75.0); RED BLOOD COUNT 3.74 X10^6/uL (4.7-6.0); RED CELL DISTRIBUTION WIDTH 15.5 % (11.6-16.5); WHITE BLOOD COUNT 8.6 X10^3/uL (3.6-10.0)
[2022-05-31 06:42] LABS: ALANINE AMINOTRANSFERASE 44 Units/L (12-78); ALBUMIN 3.6 g/dL (3.4-5.0); ALKALINE PHOSPHATASE 193 Units/L (46-116); ASPARTATE AMINO TRANSFERASE 44 Units/L (15-37); BLOOD UREA NITROGEN 9 mg/dL (7-18); CARBON DIOXIDE 25.1 mmol/L (21-32); CHLORIDE 105 mmol/L (98-107); CREATININE 0.94 mg/dL (0.70-1.30); SODIUM 144 mmol/L (136-145); TOTAL PROTEIN 7.1 g/dL (6.4-8.2); eGFR NON BLACK RACES > 60 (>60)
[2022-05-31] MEDS ORDERED: K-DUR TAB 20 MEQ PO ONE (08:27)
[2022-05-31] MEDS ORDERED: LEXAPRO ONE (08:28)
[2022-05-31] MEDS: ALBUMIN HUMAN 25%- 100 ML 100 ML IV SCH (08:58)
[2022-05-31] MEDS: ZyrTEC TAB 10 MG PO SCH (09:02)
[2022-05-31] MEDS: FLOMAX PO SCH (09:02)
[2022-05-31] MEDS: ASPIRIN EC 81 MG PO SCH (09:02)
[2022-05-31] MEDS: ELIQUIS PO SCH ×2 (09:02→21:11)
[2022-05-31] MEDS: LEXAPRO PO SCH (09:02)
[2022-05-31] MEDS: MEGACE PO SCH ×2 (09:02→21:11)
[2022-05-31] MEDS: PROTONIX TAB 40 MG PO SCH (09:02)
[2022-05-31] MEDS: DETROL LA 4 MG CAP EXT REL PO SCH (09:02)
[2022-05-31] MEDS: NYSTATIN POWDER TOP SCH ×3 (09:03→21:10)
[2022-05-31] MEDS: LANOXIN PO SCH (09:42)
[2022-05-31] MEDS: ROCEPHIN VIAL 1 GRAM 1 G in NS 100 ML IV 100 ML IV SCH (09:42)
[2022-05-31] MEDS ORDERED: MAALOX or MYLANTA PO PRN (09:44)
[2022-05-31] MEDS: DESYREL PO SCH (21:11)
[2022-05-31] MEDS: SINGULAIR TAB 10 MG PO SCH (21:11)
[2022-06-01] MEDS: PROAMATINE PO SCH (05:23)
[2022-06-01] MEDS ORDERED: LEXAPRO ONE (09:27)
[2022-06-01] MEDS: ALBUMIN HUMAN 25%- 100 ML 100 ML IV SCH (09:33)
[2022-06-01] MEDS: FLOMAX PO SCH (09:34)
[2022-06-01] MEDS: PROTONIX TAB 40 MG PO SCH (09:34)
[2022-06-01] MEDS: MEGACE PO SCH (09:34)
[2022-06-01] MEDS: ASPIRIN EC 81 MG PO SCH (09:34)
[2022-06-01] MEDS: DETROL LA 4 MG CAP EXT REL PO SCH (09:34)
[2022-06-01] MEDS: ZyrTEC TAB 10 MG PO SCH (09:34)
[2022-06-01] MEDS: ELIQUIS PO SCH (09:34)
[2022-06-01] MEDS: LEXAPRO PO SCH (09:34)
[2022-06-01] MEDS: LANOXIN PO SCH (09:35)
[2022-06-01 10:18] VITALS: BP 110/76
== END 2022-06-01 12:20 | disposition home health service (06) | DRG 309 ==
LOC: MED/SURG 17:33
PROVIDERS: ADMIT Internal Medicine; ATTEND Internal Medicine
DX: J84.10 Pulmonary fibrosis, unspecified; I48.91 Unspecified atrial fibrillation; I25.10 Atherosclerotic heart disease of native coronary artery without angina pectoris; F03.90 Unspecified dementia, unspecified severity, without behavioral disturbance, psychotic disturbance, mood disturbance, and anxiety; I10 Essential (primary) hypertension; R53.1 Weakness; Z90.49 Acquired absence of other specified parts of digestive tract; Z51.89 Encounter for other specified aftercare; E78.2 Mixed hyperlipidemia; Z66 Do not resuscitate; N30.01 Acute cystitis with hematuria; E88.09 Other disorders of plasma-protein metabolism, not elsewhere classified

== ENCOUNTER 2023-05-28 10:10 | Inpatient (IN) ==
[2023-05-28 10:23] VITALS: BMI 21.4
--- NOTE | 2023-05-28 10:41 | DR.EXTPAIN ---
HPI Time seen Time Seen by Provider: 05/28/23 10:41 PCP Primary Care Physician: WILL Complaint/Symptoms Chief Complaint:: PATIENT C/O LT RIB PAIN. PATIENT FELL LAST NIGHT AND HIT HIS RIBS. PATIENTS STATES HE FELL ONTO A TRASH CAN AND HAS BEEN HAVING PAIN SINCE. ALSO STATES PATIENT HAS BEEN HAVING A "BAD COUGH" COVID-19 Coronavirus risk:travel/contact w/high risk person: No Has patient experienced Coronavirus symptoms: No Nurses notes reviewed Nurses Notes Review: Yes Source History Provided: Patient Mode of arrival Mode of Arrival: Wheelchair Timing Onset of Chief Complaint: 05/27/23 PMH PMH Past Medical History: Yes Past Medical History: Arthritis, Coronary Artery Disease, Depression, GERD, Hypertension and Kidney Stones Past Medical History Comment: BLOOD CLOTS Past Surgical History: Yes Surgical History: Cholecystectomy and Ortho Surgery Past Surgical History Comment: HERNIA REPAIR, X3 ANEURYSM REPAIR, LUNG SURGERY Family History History of Family Medical Conditions: Yes Family Medical History: Diabetes Mellitus, Coronary Artery Disease and Hypertension Social History Does any household member use tobacco: No Alcohol Use: None Do you use any recreational Drugs:: No Lives With: Family Lives Where: Home Travel Risk Coronavirus risk:travel/contact w/high risk person: No Has patient experienced Coronavirus symptoms: No Infectious screening In the last 2 months have you had wt loss of >10#?: NO Have you had fever, night sweats or hemotysis?: No Have you traveled outside the country in the last 6 months?: No Isolation: Standard PE Vital Signs Vitals: Vital Signs Temperature 98.8 F Pulse Rate 114 Pulse Rate 114 Pulse Rate 111 Pulse Rate 113 Pulse Rate 125 Respiratory Rate 23 Respiratory Rate 23 Respiratory Rate 22 Respiratory Rate 22 Respiratory Rate 18 Blood Pressure 115/74 Blood Pressure 119/76 Blood Pressure 96/71 O2 Sat by Pulse Oximetry 94 O2 Sat by Pulse Oximetry 90 O2 Sat by Pulse Oximetry 91 O2 Sat by Pulse Oximetry 92 O2 Sat by Pulse Oximetry 94 ROR Labs Reviewed 05/28/23 10:52 05/28/23 10:52 Laboratory: WBC 8.5 X10^3/uL (3.6-10.0) 05/28/23 10:52 RBC 4.66 X10^6/uL (4.7-6.0) L 05/28/23 10:52 Hgb 14.6 g/dL (13.5-18.0) 05/28/23 10:52 Hct 43.8 % (42.0-54.0) 05/28/23 10:52 MCV 93.8 fL (80.0-100.0) 05/28/23 10:52 MCH 31.2 pg (27.0-34.0) 05/28/23 10:52 MCHC 33.3 g/dL (33.0-35.0) 05/28/23 10:52 RDW 15.4 % (11.6-16.5) 05/28/23 10:52 Plt Count 142 X10^3/uL (150.0-450.0) L 05/28/23 10:52 MPV 8.5 fL (7.4-11.0) 05/28/23 10:52 Neut % (Auto) 79.9 % (42.0-75.0) H 05/28/23 10:52 Lymph % (Auto) 8.6 % (21.0-51.0) L 05/28/23 10:52 [place] % (Auto) 8.9 % (0.0-13.0) 05/28/23 10:52 Eos % (Auto) 2.2 % (0.9-2.9) 05/28/23 10:52 Baso % (Auto) 0.4 % (0.2-1.0) 05/28/23 10:52 Neut # (Auto) 6.8 x10^3/uL (2.2-4.8) H 05/28/23 10:52 Lymph # (Auto) 0.7 X10^3/uL (1.3-2.9) L 05/28/23 10:52 Crisp # (Auto) 0.8 x10^3/uL (0.3-0.8) 05/28/23 10:52 Eos # (Auto) 0.2 x10^3/uL (0.0-0.2) 05/28/23 10:52 Baso # (Auto) 0.0 X10^3/uL (0.0-0.1) 05/28/23 10:52 Absolute Nucleated RBC 0.0 /100WBC 05/28/23 10:52 Sodium 136 mmol/L (136-145) 05/28/23 10:52 Corrected Sodium 138 mmol/L (136-145) 05/28/23 10:52 Potassium 3.6 mmol/L (3.5-5.1) 05/28/23 10:52 Chloride 99 mmol/L (98-107) 05/28/23 10:52 Carbon Dioxide 33.5 mmol/L (21-32) H 05/28/23 10:52 BUN 19 mg/dL (7-18) H 05/28/23 10:52 Creatinine 1.25 mg/dL (0.70-1.30) 05/28/23 10:52 Est GFR (MDRD) Af Amer > 60 (>60) 05/28/23 10:52 Est GFR (MDRD) Non-Af 58 (>60) L 05/28/23 10:52 Glucose 183 mg/dL (65-99) H 05/28/23 10:52 Calcium 8.0 mg/dL (8.5-10.1) L 05/28/23 10:52 Corrected Calcium 8.9 mg/dL (8.5-10.1) 05/28/23 10:52 Total Bilirubin 0.60 mg/dL (0.2-1.0) 05/28/23 10:52 AST 22 Units/L (15-37) 05/28/23 10:52 ALT 20 Units/L (12-78) 05/28/23 10:52 Alkaline Phosphatase 104 Units/L (46-116) 05/28/23 10:52 Creatine Kinase 34 Units/L (39-308) L 05/28/23 10:52 Troponin I High Sens 10.7 ng/L (4.0-60.0) 05/28/23 10:52 Total Protein 6.9 g/dL (6.4-8.2) 05/28/23 10:52 Albumin 2.9 g/dL (3.4-5.0) L 05/28/23 10:52 Globulin 4.0 g/dL (2.5-4.5) 05/28/23 10:52 Albumin/Globulin Ratio 0.7 Ratio (1.1-2.1) L 05/28/23 10:52 Specimen Type Clean catch urine 05/28/23 11:35 Urine Color Dark yellow (YELLOW) 05/28/23 11:35 Urine Appearance Clear (CLEAR) 05/28/23 11:35 Urine pH 6.0 (5.0 - 8.0) 05/28/23 11:35 Ur Specific [place] 1.020 (1.000-1.030) 05/28/23 11:35 Urine Protein 2+ (NEGATIVE) 05/28/23 11:35 Urine Glucose (UA) Negative (NEGATIVE) 05/28/23 11:35 Urine Ketones Negative (NEGATIVE) 05/28/23 11:35 Urine Blood 5+ (NEGATIVE) 05/28/23 11:35 Urine Nitrite Negative (NEGATIVE) 05/28/23 11:35 Urine Bilirubin Negative (NEGATIVE) 05/28/23 11:35 Urine Urobilinogen Normal (NORMAL) 05/28/23 11:35 Ur Leukocyte Esterase 1+ (NEGATIVE) 05/28/23 11:35 Urine RBC 20-30 /HPF (0-3) A 05/28/23 11:35 Urine WBC 0-2 /HPF (0-5) 05/28/23 11:35 Ur Squamous Epith Cells Rare /HPF (NEGATIVE) 05/28/23 11:35 Urine Bacteria Negative /HPF (NEGATIVE) 05/28/23 11:35 Ur Culture Indicated? No/not indicated 05/28/23 11:35 Opioid Opioid Risk Tool Age (Neri box if 16-45): No History of Preadolescent Sexual Abuse: No Total: 0 Total Score Risk Category: Low Risk Copyright: Sarmad TOURE predicting aberrant behaviors Discharge Plan Discharge Plan Patient Disposition: 01 HOME, SELF-CARE Condition: Stable Prescriptions: No Action tamsulosin 0.4 MG capsule,extended release 24hr 0.4 mg PO .1200 pantoprazole 40 mg Tablet,Delayed Release (Dr/Ec) 40 mg PO HS montelukast 10 mg Tablet 10 mg PO DAILY midodrine 5 mg Tablet 20 mg PO BID Rx Instructions: do not give last dose of day after 6PM or within 4 hrs of bedtime propranolol 10 mg tablet 1 tab PO DAILY trazodone 150 mg tablet 1 tab PO QPM digoxin 125 mcg (0.125 mg) tablet 1 tab PO .1200 Eliquis 5 mg tablet 1 tab PO BID aspirin [Ecotrin Low Strength] 81 mg Tablet,Delayed Release (Dr/Ec) 81 mg PO HS Zyrtec 10 mg Capsule 10 mg PO HS escitalopram oxalate 10 mg tablet 20 mg PO DAILY Rx Instructions: TAKE ONE TABLET DAILY Vitamin C 100 mg Tablet 100 mg PO .1200 Vitamin D (with calcium) 77-400 mg-unit Tablet 1 tab PO HS Health Concerns: Post Hospitalization: new medications and changes needed to prevent readmission or further decline. Pt educated and given instructions on all concerns. Plan of Treatment: Continue with present treatment and follow up plan. Pt is to keep follow up appointment as instructed and take medications as ordered. Follow ups/Referrals Follow ups/Referrals: Wesly Cartagena [Primary Care Provider] - 3 days Instructions Stand Alone Forms: Post Hospital Follow Up Care
[2023-05-28 11:01] LABS: BASOPHILS % (AUTO) 0.4 % (0.2-1.0); EOSINOPHILS # (AUTO) 0.2 x10^3/uL (0.0-0.2); EOSINOPHILS % (AUTO) 2.2 % (0.9-2.9); HEMATOCRIT 43.8 % (42.0-54.0); HEMOGLOBIN 14.6 g/dL (13.5-18.0); LYMPHOCYTES # (AUTO) 0.7 X10^3/uL (1.3-2.9); LYMPHOCYTES % (AUTO) 8.6 % (21.0-51.0); MEAN CORPUSCULAR HEMOGLOBIN 31.2 pg (27.0-34.0); MEAN CORPUSCULAR HGB CONC 33.3 g/dL (33.0-35.0); MEAN CORPUSCULAR VOLUME 93.8 fL (80.0-100.0); MEAN PLATELET VOLUME 8.5 fL (7.4-11.0); MONOCYTES # (AUTO) 0.8 x10^3/uL (0.3-0.8); MONOCYTES % (AUTO) 8.9 % (0.0-13.0); NEUTROPHILS # (AUTO) 6.8 x10^3/uL (2.2-4.8); NEUTROPHILS % (AUTO) 79.9 % (42.0-75.0); PLATELET COUNT 142 X10^3/uL (150.0-450.0); RED BLOOD COUNT 4.66 X10^6/uL (4.7-6.0); RED CELL DISTRIBUTION WIDTH 15.4 % (11.6-16.5); WHITE BLOOD COUNT 8.5 X10^3/uL (3.6-10.0)
[2023-05-28] MEDS ORDERED: NS 1,000 ML IV 1,000 ML ONE (11:04)
--- NOTE | 2023-05-28 11:07 | EKG ---
Test Reason : hypertension Blood Pressure : */* mmHG Vent. Rate : 116 BPM Atrial Rate : 116 BPM P-R Int : 174 ms QRS Dur : 76 ms QT Int : 322 ms P-R-T Axes : 42 11 56 degrees QTc Int : 447 ms Sinus tachycardia Septal infarct , age undetermined Nonspecific ST and T wave abnormality Abnormal ECG No previous ECGs available Confirmed by Adair Ann MD ([id number]) on 05/28/2023 11:07:40 AM Referred By: Confirmed By: Adair Ann MD
[2023-05-28] MEDS: NS 1,000 ML IV 1,000 ML IV SCH ×2 (11:18→20:20)
[2023-05-28 11:19] LABS: ALANINE AMINOTRANSFERASE 20 Units/L (12-78); ALBUMIN 2.9 g/dL (3.4-5.0); ALKALINE PHOSPHATASE 104 Units/L (46-116); ASPARTATE AMINO TRANSFERASE 22 Units/L (15-37); BLOOD UREA NITROGEN 19 mg/dL (7-18); CARBON DIOXIDE 33.5 mmol/L (21-32); CHLORIDE 99 mmol/L (98-107); COR CA(FOR HYPOALB) 8.9 mg/dL (8.5-10.1); COR NA(FOR HYPERGLY) 138 mmol/L (136-145); CREATINE KINASE 34 Units/L (39-308); CREATININE 1.25 mg/dL (0.70-1.30); GLUCOSE 183 mg/dL (65-99); POTASSIUM 3.6 mmol/L (3.5-5.1); SODIUM 136 mmol/L (136-145); TOTAL PROTEIN 6.9 g/dL (6.4-8.2); eGFR NON BLACK RACES 58 (>60)
[2023-05-28 11:48] LABS: BILIRUBIN,URINE NEGATIVE (NEGATIVE); BLOOD/HEMOGLOBIN,URINE 5+ (NEGATIVE); GLUCOSE, URINE NEGATIVE (NEGATIVE); KETONES,URINE NEGATIVE (NEGATIVE); LEUKOCYTE ESTERASE ,URINE 1+ (NEGATIVE); NITRITES,URINE NEGATIVE (NEGATIVE); PROTEIN,URINE 2+ (NEGATIVE); UROBILINOGEN,URINE NORMAL (NORMAL)
[2023-05-28 11:49] LABS: APPEARANCE,URINE CLEAR (CLEAR); COLOR,URINE DARK YELLOW (YELLOW)
[2023-05-28 11:54] LABS: BACTERIA,URINE NEGATIVE /HPF (NEGATIVE); RBC,URINE 20-30 /HPF (0-3); SQUAMOUS EPITHELIAL CELL,UR RARE /HPF (NEGATIVE)
--- NOTE | 2023-05-28 12:00 | CT ---
EXAM:CT HEAD WITHOUT CONTRASTHISTORY:PAIN, FALL;COMPARISON:None.TECHNIQUE:Axial CT images were obtained through the brain without contrast.All CT scans at this facility use dose modulation, iterative reconstruction, and/or weight based dosing when appropriate to reduce radiation dose to as low as reasonably achievable.FINDINGS:BRAIN: There is severe diffuse atrophy with proportionate enlargement of the cerebral sulci and ventricular system. Decreased attenuation in the periventricular white matter is compatible with but not specific for chronic small vessel ischemic changes. No evidence of acute infarct intra or extraaxial hemorrhage mass effect or hydrocephalus.CALVARIUM: NormalADDITIONAL FINDINGS: The visualized paranasal sinuses and mastoid air cells are clear. Orbits are grossly unremarkable.IMPRESSION:No evidence of acute intracranial process.THIS IS AN ELECTRONICALLY VERIFIED FINAL [id number]/28/2023 11:57 AM - Electronically signed by Patel Hutchins MD
--- NOTE | 2023-05-28 12:38 | CT ---
EXAM:CT cervical spine without contrastHISTORY:Axial noncontrast images with coronal and sagittal reformats. Dose reduction procedures were used with mA/kv adjusted for body size.COMPARISON:NoneTECHNIQUE:Axial noncontrast images with coronal and sagittal reformats.FINDINGS:Prevertebral soft tissues are normal. The alignment is normal. The vertebral bodies are of average height. Disc space narrowing is present C2-3, C4-5, C5-6, C6-7. Diffuse anterior and posterior spondylitic change is present. Pedicles, spinous processes, and posterior elements appear intact. Right-sided spondylitic change contributes to foraminal narrowing at C3-4. Severe bilateral foraminal narrowing C4-5, C5-6, C6-7 with moderate spondylitic canal stenosis C5-6 and C6-7. Diffuse severe bilateral facet and uncovertebral joint degenerative joint disease is present. There is no definite evidence for cervical spine fracture or dislocation.FINDINGS:See aboveIMPRESSION:No definite evidence for cervical spine fracture or dislocationMultilevel disc space narrowing C2-3, C4-5, C5-6, C6-7Diffuse severe anterior and posterior spondylitic changeSevere spondylitic foraminal narrowing at the levels noted aboveSpondylitic canal stenosis C5-6, C6-7Severe diffuse bilateral facet and uncovertebral joint degenerative joint diseaseTHIS IS AN ELECTRONICALLY VERIFIED FINAL [id number]/28/2023 12:35 PM - Electronically signed by Cole Fuentes MD
--- NOTE | 2023-05-28 13:34 | CT ---
EXAM:CT chest without contrastHISTORY:FallCOMPARISON: 1TECHNIQUE:Axial noncontrast images with coronal and sagittal reformats. Dose reduction procedures were used with mA/kv adjusted for body size. This examination is limited due to the lack of intravenous contrast. The examination was performed in this manner at the sole discretion of the ordering caregiver.FINDINGS:Examination of the mediastinum demonstrated no evidence for mediastinal masses, enlarged mediastinal or enlarged hilar adenopathy to the limitations of an unenhanced examination. Once again identified is dilatation of the ascending aorta measuring 4.7 x 4.5 cm and not significantly changed from the prior examination. 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 Distal thoracic aortic aneurysm is ectatic. No pleural effusions are identified. Those portions of the upper abdominal organs visualized appeared within normal limits to the limitations of an unenhanced examination with the exception a 1 cm nonobstructing right renal calculus. Bilateral multiple renal cysts are identified as is partial visualization of an infrarenal abdominal aortic stent graft. Examination of the lung horne demonstrated no significant masses, alveolar infiltrates, areas of consolidation, peribronchial thickening or bronchiectasis. There are some dependent atelectatic changes in the lung bases. No pulmonary contusion or pneumothorax identified. No significant pulmonary nodules are identified.IMPRESSION:No acute traumatic abnormality identified in the chest but only to the limitations of an examination performed without intravenous and without oral contrast.No significant change dilatation ascending aorta maximum diameter 4.7 cmSlight increase in size of the patient's known unusual midthoracic arch aneurysm maximum diameter 6 cm as compared to 5.4 cm on 04/25/2021Nonobstructing right renal calculusMultiple bilateral renal cystsNo acute pulmonary infiltrate, pulmonary contusion or pneumothoraxTHIS IS AN ELECTRONICALLY VERIFIED FINAL [id number]/2023 1:31 PM - Electronically signed by Cole Fuentes MD
[2023-05-28] MEDS: LANOXIN or DIGITEK PO SCH (15:41)
[2023-05-28] MEDS: VITAMIN C PO SCH (15:41)
[2023-05-28] MEDS: FLOMAX PO SCH (15:41)
[2023-05-28] MEDS ORDERED: CONSULT PHARMACY - POTASSIUM & MAGNESIUM XX SCH (19:00)
[2023-05-28] MEDS: MAG-OX TAB PO SCH ×2 (19:07→20:20)
[2023-05-28] MEDS ORDERED: K-DUR TAB 20 MEQ PO ONE (20:00)
[2023-05-28] MEDS: CITRACAL + VITAMIN D PO SCH (20:21)
[2023-05-28] MEDS: ZyrTEC TAB 10 MG PO SCH (20:21)
[2023-05-28] MEDS: DESYREL PO SCH (20:21)
[2023-05-28] MEDS: PROTONIX TAB 40 MG PO SCH (20:21)
[2023-05-28] MEDS: ASPIRIN EC 81 MG PO SCH (20:21)
[2023-05-28] MEDS: ELIQUIS PO SCH (20:21)
[2023-05-29] MEDS: NS 1,000 ML IV 1,000 ML IV SCH ×4 (03:43→18:22)
[2023-05-29 05:13] LABS: BASOPHILS % (AUTO) 0.2 % (0.2-1.0); EOSINOPHILS # (AUTO) 0.4 x10^3/uL (0.0-0.2); EOSINOPHILS % (AUTO) 5.1 % (0.9-2.9); LYMPHOCYTES % (AUTO) 13.3 % (21.0-51.0); MEAN CORPUSCULAR HEMOGLOBIN 30.9 pg (27.0-34.0); MEAN CORPUSCULAR HGB CONC 33.3 g/dL (33.0-35.0); MEAN PLATELET VOLUME 8.6 fL (7.4-11.0); MONOCYTES # (AUTO) 0.9 x10^3/uL (0.3-0.8); MONOCYTES % (AUTO) 11.9 % (0.0-13.0); NEUTROPHILS # (AUTO) 5.2 x10^3/uL (2.2-4.8); NEUTROPHILS % (AUTO) 69.5 % (42.0-75.0); PLATELET COUNT 130 X10^3/uL (150.0-450.0); RED BLOOD COUNT 4.19 X10^6/uL (4.7-6.0); RED CELL DISTRIBUTION WIDTH 15.6 % (11.6-16.5); WHITE BLOOD COUNT 7.5 X10^3/uL (3.6-10.0)
[2023-05-29 05:32] LABS: ALANINE AMINOTRANSFERASE 15 Units/L (12-78); ALBUMIN 2.4 g/dL (3.4-5.0); ALKALINE PHOSPHATASE 84 Units/L (46-116); ASPARTATE AMINO TRANSFERASE 22 Units/L (15-37); BLOOD UREA NITROGEN 15 mg/dL (7-18); CALCIUM 7.5 mg/dL (8.5-10.1); CARBON DIOXIDE 31.2 mmol/L (21-32); CHLORIDE 103 mmol/L (98-107); COR CA(FOR HYPOALB) 8.8 mg/dL (8.5-10.1); DIGOXIN 0.54 ng/mL (0.9-2); GLUCOSE 92 mg/dL (65-99); MAGNESIUM 1.9 mg/dL (2.0-2.9); POTASSIUM 3.6 mmol/L (3.5-5.1); SODIUM 138 mmol/L (136-145); TOTAL PROTEIN 5.8 g/dL (6.4-8.2); eGFR NON BLACK RACES > 60 (>60)
--- NOTE | 2023-05-29 06:16 | RAD ---
EXAM:Portable chestHISTORY:Shortness of breath, RSVCOMPARISON:05/22/2022 chest x-ray, 05/28/2023 CT chest without contrastFINDINGS:Heart size is normal. Redemonstrated is dilatation of the aortic arch representing the patient's known chronic aortic arch aneurysm which was better demonstrated on the recent CT chest. Ascending aorta is also dilated. These findings are stable. Lung horne are free of acute infiltrates. No pleural effusions are identified. Bony thorax is unremarkable.IMPRESSION:No acute infiltratesNo change aortic arch aneurysmNo change dilated ascending aortaTHIS IS AN ELECTRONICALLY VERIFIED FINAL [id number]/29/2023 6:13 AM - Electronically signed by Cole Fuentes MD
[2023-05-29] MEDS ORDERED: CONSULT PHARMACY - POTASSIUM & MAGNESIUM XX SCH (07:00)
[2023-05-29] MEDS ORDERED: LEXAPRO ONE (08:04)
[2023-05-29] MEDS: INDERAL TAB 10 MG PO SCH (09:32)
[2023-05-29] MEDS: ELIQUIS PO SCH ×2 (09:32→20:18)
[2023-05-29] MEDS: MAG-OX TAB PO SCH ×2 (09:33→11:40)
[2023-05-29] MEDS: SINGULAIR TAB 10 MG PO SCH (09:33)
[2023-05-29] MEDS: K-DUR TAB 20 MEQ PO SCH ×2 (09:33→11:40)
[2023-05-29] MEDS: LEXAPRO PO SCH (09:33)
--- NOTE | 2023-05-29 11:07 | DR.H&P ---
H&P - History & Physical for Day of: H&P Date: 05/28/23 - Chief Complaint Chief Complaint: COUGH, WEAKNESS, LEFT SIDE RIB PAIN, NECK PAIN, RECENT FALL - History of Present Illness History of Present Illness: IS A 87 YEAR OLD PATIENT OF OURS. HE PRESENTED TO THE HOSPITAL WITH COMPLAINTS OF PERSISTENT LEFT SIDED RIB PAIN AND NECK PAIN SINCE FALLING AT HOME EARLIER IN THE DAY. PATIENT REPORTS THAT HE HIT HIS RIBS ON THE TRASH CAN WHEN HE FELL. HE DESCRIBES PAIN CONSTANT, DULL, AND RATES PAIN A 6/10 ON ARRIVAL. ADDITIONALLY, HE COMPLAINS OF A PERSISTENT COUGH FOR THE PAST TWO WEEKS. HIS PMH INCLUDES: ARTHRITIS, COPD, DEPRESSION, GERD, HTN, KIDNEY STONES, BLOOD CLOTS, HERNIA REPAIR, ANEURYSM REPAIR. ON ARRIVAL TO THE HOSPITAL, HIS VITALS WERE: 98.8-125-18-94%-96/71. LABS WERE OBTAINED. WBC 8.5, RBC 4.66, HGB 14.6, HCT 43.8, PLT COUNT 142, SODIUM 136, POTASSIUM 3.6, CHLORIDE 99, CARBON DIOXIDE 33.5, BUN 19, CREATININE 1.25, GLUCOSE 183, CALCIUM 8.0, MAGNESIUM 1.7, TOTAL BILI 0.60, AST 22, ALT 20, ALK PHOS 104, CREATINE KINASE 34, TROPONIN 10.7, TOTAL PROTEIN 6.9, ALBUMIN 2.9, DIGOXIN 0.54. A URINALYSIS WAS OBTAINED AND REVEALED: WBC 0-2, RBC 20-30, BACTERIA NEGATIVE, BLOOD 5+. COVID AND INFLUENZA WERE NEGATIVE. RSV WAS POSITIVE. A RESPIRATORY VIRAL PANEL WAS SET UP. A CERVICAL SPINE CT WITHOUT CONTRAST WAS OBTAINED AND REVEALED: Prevertebral soft tissues are normal. The alignment is normal. The vertebral bodies are of average height. Disc space narrowing is present C2-3, C4-5, C5-6, C6-7. Diffuse anterior and posterior spondylitic change is present. Pedicles, spinous processes, and posterior elements appear intact. Right-sided spondylitic change contributes to. foraminal narrowing at C3-4. Severe bilateral foraminal narrowing C4-5, C5-6, C6-7 with moderate spondylitic canal stenosis C5-6 and C6-7. Diffuse severe bilateral facet and uncovertebral joint degenerative joint disease is present. There is no definite evidence for cervical spine fracture or. Dislocation. A CHEST CT WITHOUT CONTRAST WAS OBTAINED AND REVEALED: No acute traumatic. abnormality identified in the chest but only to the limitations of an examination performed without intravenous and without oral contrast. No significant change dilatation ascending aorta maximum diameter 4.7 cm. Slight increase in size of the patient's known unusual midthoracic arch aneurysm maximum diameter 6 cm as compared to 5.4 cm on 021. Nonobstructing right renal calculus. Multiple bilateral renal cysts. No acute pulmonary infiltrate, pulmonary contusion or pneumothorax. A BRAIN CT WITHOUT CONTRAST WAS OBTAINED AND REVEALED: No evidence of acute intracranial process. EKG REVEALED SINUS TACHCYARDIA WITH HR 116 BPM. IN THE ER, HE WAS GIVEN K-DUR 20MEQ PO X 1 DOSE, MAG OX 800MG PO X 2 DOSES. HE WAS ADMITTED TO THE HOSPITAL FOR FURTHER EVALUATION AND TREATMENT OF DEHYDRATION, GENERALIZED WEAKNESS, RSV, LEFT SIDE RIB PAIN, HEMATURIA, AORTIC ANEURYSM. ON ADMISSION, HE WAS STARTED ON NORMAL SALINE AT 75 ML/HR, XOPENEX NEBS TID, ROBITUSSIN DM 10ML QID, MAGNESIUM OXIDE, POTASSIUM CHLORIDE. HIS HOME MEDICATIONS OF ELIQUIS, VITAMIN C, ECOTRIN, VITAMIN D, ZYRTEC, DIGOXIN, LEXAPRO, SINGULAIR, PROTONIX, PROPRANOLOL, TAMSULOZIN, AND TRAZODONE WERE RESUMED. WE WILL OBTAIN AN ABDOMEN/PELVIS CT WITHOUT CONTRAST DUE TO MODERATE HEMATURIA. OTHERWISE, WE WILL FOLLOW UP WITH AM LABS AND CHEST XRAY AND CONTINUE TO MONITOR. TIME SPENT ON CLINICAL ASSESSMENT, REVIEWING LABS AND IMAGING, DECISION MAKING, AND DOCUMENTATION GREATER THAN 75 MINUTES. - Past Medical History Past Medical History: Coronary Artery Disease, Hypertension, Depression, GERD, Arthritis, Kidney Stones Additional Medical History: PULMONARY FIBROSIS, CHRONIC UTIs, BPH - Past Surgical History Surgical History: Cholecystectomy, Ortho Surgery Additional Surgical History: HERNIA REPAIR, HIP REPLACEMENT - Family History Family Medical History: Diabetes Mellitus, Coronary Artery Disease, Hypertension - Social History Does patient currently use any type of tobacco product: Yes Have you used tobacco products in the last 12 months: Yes Type of Tobacco Use: Cigarettes Does any household member use tobacco: No Alcohol Use: None Drug Use: None - Review of Systems Constitutional: Weakness Eyes: No Symptoms Reported ENT: No Symptoms Reported Respiratory: Cough, Shortness of Breath Cardiovascular: No Symptoms Reported Gastrointestinal: No Symptoms Reported Genitourinary: Hematuria Skin: No Symptoms Reported Neurological: Weakness - Physical Exam Vital Signs: Vital Signs Temperature 98.2 F Temperature 98.4 F Pulse Rate [Bilateral Radial] 81 Pulse Rate [Bilateral Radial] 87 Respiratory Rate 20 Respiratory Rate 18 Blood Pressure [Left Arm] 113/69 Blood Pressure [Left Arm] 109/64 O2 Sat by Pulse Oximetry 96 O2 Sat by Pulse Oximetry 91 Oriented: Normal Eyes: Normal Ear: Normal Nose: Normal Throat: Normal Respiratory: Diminished Throughout Cardiovascular: Tachycardia : Hematuria Auscultation: Bowel Sounds: Normal Palpation: Normal Tenderness: Normal Skin: Normal Musculoskeletal: Left (LEFT SIDE RIB PAIN ), Tender Psychiatric: Normal Mood Description: Calm Affect: Normal Speech Pattern: Clear - Assessment/Plan (1) Acute dehydration Status: Acute Plan: ADMIT, NORMAL SALINE AT 75 ML/HR, XOPENEX NEBS TID, ROBITUSSIN DM 10ML QID, MAGNESIUM OXIDE, POTASSIUM CHLORIDE. HIS HOME MEDICATIONS OF ELIQUIS, VITAMIN C, ECOTRIN, VITAMIN D, ZYRTEC, DIGOXIN, LEXAPRO, SINGULAIR, PROTONIX, PROPRANOLOL, TAMSULOZIN, AND TRAZODONE WERE RESUMED. RESUME HOME MEDS (2) RSV bronchitis Status: Acute (3) Generalized weakness Status: Acute (4) Rib pain on left side Status: Acute (5) History of recent fall Status: Acute (6) Hematuria Qualifiers: Hematuria type: unspecified type Qualified Code(s): R31.9 - Hematuria, unspecified Status: Acute (7) Aortic aneurysm Qualifiers: Aortic location: thoracic aorta Thoracic aorta location: ascending aorta Presence of rupture: without rupture Qualified Code(s): I71.21 - Aneurysm of the ascending aorta, without rupture Status: Chronic (8) Depression Qualifiers: Depression Type: major depressive disorder Major depression recurrence: recurrent Active/Remission status: currently active Major depression episode severity: unspecified Qualified Code(s): F33.9 - Major depressive disorder, recurrent, unspecified Status: Chronic (9) GERD (gastroesophageal reflux disease) Qualifiers: Esophagitis presence: esophagitis presence not specified Qualified Code(s): K21.9 - Gastro-esophageal reflux disease without esophagitis Status: Chronic (10) Hypertension Qualifiers: Hypertension type: primary hypertension Qualified Code(s): I10 - Essential (primary) hypertension Status: Chronic - Allergies Allergies/Adverse Reactions: Allergies Allergy/AdvReac Type Severity Reaction Status Date / Time No Known Drug Allergies Allergy Verified 08/18/18 17:34 - Medications Home Medications: Home Medications Medication Instructions Recorded Confirmed tamsulosin 0.4 mg capsule 0.4 mg PO .1200 11/30/14 05/28/23 montelukast 10 mg tablet 10 mg PO DAILY 08/18/18 05/28/23 pantoprazole 40 mg tablet,delayed 40 mg PO HS stomach 08/18/18 05/28/23 release apixaban 5 mg tablet (Eliquis) 1 tab PO BID 05/05/22 05/28/23 aspirin 81 mg tablet,delayed 81 mg PO HS 05/05/22 05/28/23 release (Ecotrin Low Strength) cetirizine 10 mg capsule (Zyrtec) 10 mg PO HS 05/05/22 05/28/23 digoxin 125 mcg (0.125 mg) tablet 1 tab PO .1200 05/05/22 05/28/23 propranolol 10 mg tablet 1 tab PO DAILY 05/05/22 05/28/23 trazodone 150 mg tablet 1 tab PO QPM 05/05/22 05/28/23 midodrine 5 mg tablet 20 mg PO BID 05/19/22 05/28/23 ascorbic acid (vitamin C) 100 mg 100 mg PO .1200 05/28/23 05/28/23 tablet (Vitamin C) calcium phosphate,dibasic 77 1 tab PO HS 05/28/23 05/28/23 mg-vitamin D3 400 unit tablet escitalopram oxalate 10 mg tablet 20 mg PO DAILY 05/28/23 05/28/23
[2023-05-29] MEDS: LANOXIN or DIGITEK PO SCH (11:39)
[2023-05-29] MEDS: VITAMIN C PO SCH (11:40)
[2023-05-29] MEDS: FLOMAX PO SCH (11:40)
[2023-05-29] MEDS: ROBITUSSIN DM PO SCH ×4 (11:40→20:19)
--- NOTE | 2023-05-29 15:28 | CT ---
EXAM:CT abdomen and pelvis without IV contrastHISTORY:NephrolithiasisCOMPARISON: r.br.br.br.br abdomen and pelvis were obtained from the lung bases to the pubic symphysis without the administration of IV contrast. Dose reduction techniques including Automated Exposure Control (AEC) and adjustment of mA and kV were utilized.FINDINGS:The visualized portions of the lung bases suggest possible CHF and pulmonary edema. No pleural effusions are seen. Partial visualization of the ascending thoracic aorta shows it to be dilated to 4.3 cm in diameter. Descending thoracic aorta is measured at 3.8 cm in diameter. It tapers slightly at the diaphragm. There has been prior treatment of an abdominal aortic aneurysm which measures 3.7 cm in diameter.There are large aneurysms within the left external and internal iliac arteries. 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 Postsurgical changes are seen in these regions and there is a stent in the right external iliac artery. No evidence of aneurysm rupture is seen.The liver and spleen display no abnormalities.Gallbladder is either contracted or absent. In the region of the gallbladder or possibly the cystic duct there are 2 tiny hyperdensities that are concerning for stones. No biliary ductal dilation.No pancreatic abnormality is seen.The adrenal glands appear normal.Nonobstructing 7 mm stone is seen in the mid right kidney. Hydronephrosis is seen. In the lower pole of the left kidney there is a probable stone measuring 5 mm. There are simple cysts in both kidneys. Largest cyst is in the superior pole of the left kidney measuring 9 cm. These are similar to prior MRI. Artifacts partially obscure the ureters but no suggestion of ureteral stone is seen. Bladder is decompressed with questionable mild wall thickening. There is mass impression upon the base of the bladder due to the enlarged prostate gland.No bowel abnormalities are seen. Appendix is not seen but no pericecal inflammation is seen.Prostate gland is enlarged measuring 5.3 x 4.5 x 5.4 cm. No inguinal hernia is seen.No suspicious lymphadenopathy.No free intraperitoneal air or fluid is seen.Mild scoliosis and moderate lumbar spondylosis is seen. Prior left KEIRA with prominent arthritic changes in the right hip.IMPRESSION:Diffuse dilation of the thoracic and abdominal aorta is suspected. Prior treatment of abdominal aortic aneurysm and iliac artery aneurysms. 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 Benign renal cysts are seen.There is prostatomegaly and possible wall thickening in the urinary bladder. Bladder is poorly evaluated on this study.Probable CHF and pulmonary edema are present.THIS IS AN ELECTRONICALLY VERIFIED FINAL [id number]/29/2023 3:24 PM - Electronically signed by Yogesh Vaca MD
[2023-05-29] MEDS: XOPENEX 1.25 MG/3 ML NEBULE NEB SCH (20:05)
[2023-05-29] MEDS: ZyrTEC TAB 10 MG PO SCH (20:19)
[2023-05-29] MEDS: DESYREL PO SCH (20:19)
[2023-05-29] MEDS: ASPIRIN EC 81 MG PO SCH (20:19)
[2023-05-29] MEDS: PROTONIX TAB 40 MG PO SCH (20:19)
[2023-05-29] MEDS: CITRACAL + VITAMIN D PO SCH (20:19)
[2023-05-30] MEDS: NS 1,000 ML IV 1,000 ML IV SCH ×3 (04:45→20:07)
[2023-05-30] MEDS: XOPENEX 1.25 MG/3 ML NEBULE NEB SCH ×5 (05:00→21:05)
--- NOTE | 2023-05-30 05:09 | RAD ---
PROCEDURE: Chest X-ray 1 View .HISTORY: Dyspnea.TECHNIQUE: AP portable done at 4:29 a.m..COMPARISON: 05/29/2023.TECHNICAL QUALITY: Satisfactory .FINDINGS:Normal size heart .Aneurysmal dilatation of the aorta with tortuosity is unchanged.Normal central vascularity .No pulmonary consolidation, masses, pleural fluid, or pneumothorax .No acute bony abnormality .IMPRESSION:1. No active cardiopulmonary disease .2. Unchanged aneurysmal dilatation of the thoracic aortaElectronically signed by: Sergei Dwyer (May 30, 2023 05:07:25)
[2023-05-30 05:26] LABS: BASOPHILS % (AUTO) 0.4 % (0.2-1.0); EOSINOPHILS # (AUTO) 0.4 x10^3/uL (0.0-0.2); EOSINOPHILS % (AUTO) 5.9 % (0.9-2.9); HEMATOCRIT 38.5 % (42.0-54.0); HEMOGLOBIN 12.7 g/dL (13.5-18.0); LYMPHOCYTES # (AUTO) 1.3 X10^3/uL (1.3-2.9); MEAN CORPUSCULAR HEMOGLOBIN 30.9 pg (27.0-34.0); MEAN CORPUSCULAR VOLUME 93.5 fL (80.0-100.0); MEAN PLATELET VOLUME 8.6 fL (7.4-11.0); MONOCYTES # (AUTO) 0.7 x10^3/uL (0.3-0.8); MONOCYTES % (AUTO) 8.8 % (0.0-13.0); NEUTROPHILS % (AUTO) 66.9 % (42.0-75.0); PLATELET COUNT 128 X10^3/uL (150.0-450.0); RED BLOOD COUNT 4.11 X10^6/uL (4.7-6.0); RED CELL DISTRIBUTION WIDTH 15.4 % (11.6-16.5); WHITE BLOOD COUNT 7.5 X10^3/uL (3.6-10.0)
[2023-05-30 05:43] LABS: ALANINE AMINOTRANSFERASE 20 Units/L (12-78); ALBUMIN 2.3 g/dL (3.4-5.0); ALKALINE PHOSPHATASE 82 Units/L (46-116); ASPARTATE AMINO TRANSFERASE 23 Units/L (15-37); BLOOD UREA NITROGEN 15 mg/dL (7-18); CALCIUM 7.7 mg/dL (8.5-10.1); CHLORIDE 103 mmol/L (98-107); COR CA(FOR HYPOALB) 9.1 mg/dL (8.5-10.1); COR NA(FOR HYPERGLY) 139 mmol/L (136-145); CREATININE 0.92 mg/dL (0.70-1.30); GLUCOSE 113 mg/dL (65-99); POTASSIUM 3.6 mmol/L (3.5-5.1); SODIUM 139 mmol/L (136-145); TOTAL PROTEIN 5.6 g/dL (6.4-8.2); eGFR NON BLACK RACES > 60 (>60)
[2023-05-30] MEDS ORDERED: CONSULT PHARMACY - POTASSIUM & MAGNESIUM XX SCH ×2 (06:00→07:00)
[2023-05-30] MEDS ORDERED: LEXAPRO ONE (07:51)
[2023-05-30] MEDS: ROBITUSSIN DM PO SCH ×4 (08:56→20:08)
[2023-05-30] MEDS: LEXAPRO PO SCH (08:57)
[2023-05-30] MEDS: INDERAL TAB 10 MG PO SCH (08:57)
[2023-05-30] MEDS: SINGULAIR TAB 10 MG PO SCH (08:58)
[2023-05-30] MEDS: ELIQUIS PO SCH ×2 (08:58→21:35)
[2023-05-30] MEDS ORDERED: K-DUR TAB 20 MEQ PO SCH (09:00)
[2023-05-30] MEDS: FLOMAX PO SCH (15:00)
[2023-05-30] MEDS: LANOXIN or DIGITEK PO SCH (15:00)
[2023-05-30] MEDS: VITAMIN C PO SCH (15:00)
[2023-05-30] MEDS: DESYREL PO SCH (20:07)
[2023-05-30] MEDS: CITRACAL + VITAMIN D PO SCH (20:07)
[2023-05-30] MEDS: ZyrTEC TAB 10 MG PO SCH (20:07)
[2023-05-30] MEDS: PROTONIX TAB 40 MG PO SCH (20:08)
[2023-05-30] MEDS: ASPIRIN EC 81 MG PO SCH (21:34)
[2023-05-31] MEDS: NS 1,000 ML IV 1,000 ML IV SCH ×3 (04:16→20:32)
[2023-05-31] MEDS: XOPENEX 1.25 MG/3 ML NEBULE NEB SCH ×4 (05:10→21:00)
[2023-05-31 06:14] LABS: BASOPHILS % (AUTO) 0.5 % (0.2-1.0); EOSINOPHILS # (AUTO) 0.5 x10^3/uL (0.0-0.2); EOSINOPHILS % (AUTO) 6.3 % (0.9-2.9); HEMATOCRIT 39.1 % (42.0-54.0); LYMPHOCYTES # (AUTO) 1.4 X10^3/uL (1.3-2.9); LYMPHOCYTES % (AUTO) 17.4 % (21.0-51.0); MEAN CORPUSCULAR HEMOGLOBIN 30.9 pg (27.0-34.0); MEAN CORPUSCULAR HGB CONC 33.4 g/dL (33.0-35.0); MEAN CORPUSCULAR VOLUME 92.7 fL (80.0-100.0); MEAN PLATELET VOLUME 8.8 fL (7.4-11.0); MONOCYTES # (AUTO) 0.7 x10^3/uL (0.3-0.8); MONOCYTES % (AUTO) 8.4 % (0.0-13.0); NEUTROPHILS # (AUTO) 5.6 x10^3/uL (2.2-4.8); NEUTROPHILS % (AUTO) 67.4 % (42.0-75.0); PLATELET COUNT 146 X10^3/uL (150.0-450.0); RED BLOOD COUNT 4.22 X10^6/uL (4.7-6.0); RED CELL DISTRIBUTION WIDTH 15.4 % (11.6-16.5); WHITE BLOOD COUNT 8.3 X10^3/uL (3.6-10.0)
[2023-05-31 06:29] LABS: ALANINE AMINOTRANSFERASE 25 Units/L (12-78); ALBUMIN 2.4 g/dL (3.4-5.0); ALKALINE PHOSPHATASE 93 Units/L (46-116); ASPARTATE AMINO TRANSFERASE 30 Units/L (15-37); BLOOD UREA NITROGEN 11 mg/dL (7-18); CALCIUM 7.9 mg/dL (8.5-10.1); CARBON DIOXIDE 34.4 mmol/L (21-32); CHLORIDE 101 mmol/L (98-107); COR CA(FOR HYPOALB) 9.2 mg/dL (8.5-10.1); CREATININE 0.95 mg/dL (0.70-1.30); GLUCOSE 94 mg/dL (65-99); POTASSIUM 3.8 mmol/L (3.5-5.1); SODIUM 138 mmol/L (136-145); eGFR NON BLACK RACES > 60 (>60)
--- NOTE | 2023-05-31 06:35 | RAD ---
EXAM:CHEST, 1 VIEWHISTORY:SOB;COMPARISON:05/30/2023. br.br.br.br chestFINDINGS:Cardiac silhouette is normal in size. Prominence of the vascular pedicle with previous report of aneurysmal dilatation of the thoracic aorta. Mild bibasilar patchy opacities. No definite pleural effusion or pneumothorax.IMPRESSION:Mild bibasilar patchy opacities may represent atelectasis or infiltrate. Known thoracic aortic aneurysm.THIS IS AN ELECTRONICALLY VERIFIED FINAL [id number]/31/2023 6:31 AM - Electronically signed by Freddie Mcgovern MD
[2023-05-31] MEDS ORDERED: CONSULT PHARMACY - POTASSIUM & MAGNESIUM XX SCH (08:00)
[2023-05-31] MEDS ORDERED: LEXAPRO ONE (08:05)
[2023-05-31] MEDS: LEXAPRO PO SCH (08:15)
[2023-05-31] MEDS: INDERAL TAB 10 MG PO SCH (08:16)
[2023-05-31] MEDS: ELIQUIS PO SCH ×2 (08:17→20:33)
[2023-05-31] MEDS: SINGULAIR TAB 10 MG PO SCH (08:17)
[2023-05-31] MEDS: ROBITUSSIN DM PO SCH ×4 (08:18→20:31)
[2023-05-31] MEDS ORDERED: K-DUR TAB 20 MEQ PO SCH (09:00)
[2023-05-31] MEDS: FLOMAX PO SCH (13:42)
[2023-05-31] MEDS: VITAMIN C PO SCH (13:42)
[2023-05-31] MEDS: LANOXIN or DIGITEK PO SCH (14:31)
--- NOTE | 2023-05-31 18:43 | PCM.PROG ---
Progress Note Progress Note for Day of Date of Exam: 05/31/23 Subjective Subjective: IS A 87 YEAR OLD PATIENT OF [facility]. HE PRESENTED TO THE HOSPITAL WITH COMPLAINTS OF PERSISTENT LEFT SIDED RIB PAIN AND NECK PAIN SINCE FALLING AT HOME EARLIER IN THE DAY. PATIENT REPORTS THAT HE HIT HIS RIBS ON THE TRASH CAN WHEN HE FELL. HE DESCRIBES PAIN CONSTANT, DULL, AND RATES PAIN A 6/10 ON ARRIVAL. ADDITIONALLY, HE COMPLAINS OF A PERSISTENT COUGH FOR THE PAST TWO WEEKS. HIS PMH INCLUDES: ARTHRITIS, COPD, DEPRESSION, GERD, HTN, KIDNEY STONES, BLOOD CLOTS, HERNIA REPAIR, ANEURYSM REPAIR. Past Medical Family Social History Allergies: Allergies No Known Drug Allergies Allergy (Verified 08/18/18 17:34) Vital Signs and I&O's Vital Signs: Vital Signs Temperature 97.6 F Temperature 98.2 F Pulse Rate [Bilateral Radial] 67 Pulse Rate [Bilateral Radial] 71 Pulse Rate 71 Respiratory Rate 20 Respiratory Rate 22 Blood Pressure [Left Arm] 89/54 Blood Pressure [Left Arm] 102/57 O2 Sat by Pulse Oximetry 93 O2 Sat by Pulse Oximetry 94 Intake and Output: Intake & Output 05/29/23 05/30/23 05/31/23 06/01/23 11:59 11:59 11:59 11:59 Intake Total 1499 / 1499 3073 / 3073 2420 / 2420 1093 / 1093 Output Total 800 / 800 250 / 250 1400 / 1400 Balance 699 / 699 2823 / 2823 1020 / 1020 1093 / 1093 Physical Exam Oriented: Normal Eyes: Normal Ear: Normal Nose: Normal Throat: Normal Respiratory: Wheezes Cardiovascular: Tachycardia : Hematuria Auscultation: Bowel Sounds: Normal Tenderness: Normal Skin: Normal Musculoskeletal: Left (LEFT SIDE RIB PAIN ) and Tender Psychiatric: Normal Mood Description: Calm Affect: Normal Speech Pattern: Clear Laboratory and Diagnostics 05/31/23 05:41 05/31/23 05:41 Labs: Laboratory WBC 8.3 X10^3/uL (3.6-10.0) 05/31/23 05:41 RBC 4.22 X10^6/uL (4.7-6.0) L 05/31/23 05:41 Hgb 13.0 g/dL (13.5-18.0) L 05/31/23 05:41 Hct 39.1 % (42.0-54.0) L 05/31/23 05:41 MCV 92.7 fL (80.0-100.0) 05/31/23 05:41 MCH 30.9 pg (27.0-34.0) 05/31/23 05:41 MCHC 33.4 g/dL (33.0-35.0) 05/31/23 05:41 RDW 15.4 % (11.6-16.5) 05/31/23 05:41 Plt Count 146 X10^3/uL (150.0-450.0) L 05/31/23 05:41 MPV 8.8 fL (7.4-11.0) 05/31/23 05:41 Neut % (Auto) 67.4 % (42.0-75.0) 05/31/23 05:41 Lymph % (Auto) 17.4 % (21.0-51.0) L 05/31/23 05:41 [place] % (Auto) 8.4 % (0.0-13.0) 05/31/23 05:41 Eos % (Auto) 6.3 % (0.9-2.9) H 05/31/23 05:41 Baso % (Auto) 0.5 % (0.2-1.0) 05/31/23 05:41 Neut # (Auto) 5.6 x10^3/uL (2.2-4.8) H 05/31/23 05:41 Lymph # (Auto) 1.4 X10^3/uL (1.3-2.9) 05/31/23 05:41 [place] # (Auto) 0.7 x10^3/uL (0.3-0.8) 05/31/23 05:41 Eos # (Auto) 0.5 x10^3/uL (0.0-0.2) H 05/31/23 05:41 Baso # (Auto) 0.0 X10^3/uL (0.0-0.1) 05/31/23 05:41 Absolute Nucleated RBC 0.1 /100WBC 05/31/23 05:41 Sodium 138 mmol/L (136-145) 05/31/23 05:41 Corrected Sodium TNP 05/31/23 05:41 Potassium 3.8 mmol/L (3.5-5.1) 05/31/23 05:41 Chloride 101 mmol/L (98-107) 05/31/23 05:41 Carbon Dioxide 34.4 mmol/L (21-32) H 05/31/23 05:41 BUN 11 mg/dL (7-18) 05/31/23 05:41 Creatinine 0.95 mg/dL (0.70-1.30) 05/31/23 05:41 Est GFR (MDRD) Af Amer > 60 (>60) 05/31/23 05:41 Est GFR (MDRD) Non-Af > 60 (>60) 05/31/23 05:41 Glucose 94 mg/dL (65-99) 05/31/23 05:41 Calcium 7.9 mg/dL (8.5-10.1) L 05/31/23 05:41 Corrected Calcium 9.2 mg/dL (8.5-10.1) 05/31/23 05:41 Magnesium 2.0 mg/dL (2.0-2.9) 05/30/23 04:55 Total Bilirubin 0.50 mg/dL (0.2-1.0) 05/31/23 05:41 AST 30 Units/L (15-37) 05/31/23 05:41 ALT 25 Units/L (12-78) 05/31/23 05:41 Alkaline Phosphatase 93 Units/L (46-116) 05/31/23 05:41 Creatine Kinase 34 Units/L (39-308) L 05/28/23 10:52 Troponin I High Sens 10.7 ng/L (4.0-60.0) 05/28/23 10:52 Total Protein 6.0 g/dL (6.4-8.2) L 05/31/23 05:41 Albumin 2.4 g/dL (3.4-5.0) L 05/31/23 05:41 Globulin 3.6 g/dL (2.5-4.5) 05/31/23 05:41 Albumin/Globulin Ratio 0.7 Ratio (1.1-2.1) L 05/31/23 05:41 Specimen Type Clean catch urine 05/28/23 11:35 Urine Color Dark yellow (YELLOW) 05/28/23 11:35 Urine Appearance Clear (CLEAR) 05/28/23 11:35 Urine pH 6.0 (5.0 - 8.0) 05/28/23 11:35 Ur Specific [place] 1.020 (1.000-1.030) 05/28/23 11:35 Urine Protein 2+ (NEGATIVE) 05/28/23 11:35 Urine Glucose (UA) Negative (NEGATIVE) 05/28/23 11:35 Urine Ketones Negative (NEGATIVE) 05/28/23 11:35 Urine Blood 5+ (NEGATIVE) 05/28/23 11:35 Urine Nitrite Negative (NEGATIVE) 05/28/23 11:35 Urine Bilirubin Negative (NEGATIVE) 05/28/23 11:35 Urine Urobilinogen Normal (NORMAL) 05/28/23 11:35 Ur Leukocyte Esterase 1+ (NEGATIVE) 05/28/23 11:35 Urine RBC 20-30 /HPF (0-3) A 05/28/23 11:35 Urine WBC 0-2 /HPF (0-5) 05/28/23 11:35 Ur Squamous Epith Cells Rare /HPF (NEGATIVE) 05/28/23 11:35 Urine Bacteria Negative /HPF (NEGATIVE) 05/28/23 11:35 Ur Culture Indicated? No/not indicated 05/28/23 11:35 Digoxin 0.70 ng/mL (0.9-2) L 05/31/23 05:41 SARS-CoV-2 (PCR) Negative (NEGATIVE) 05/28/23 16:00 Influenza Type A (PCR) Negative (NEGATIVE) 05/28/23 16:00 Influenza Type B (PCR) Negative (NEGATIVE) 05/28/23 16:00 RSV (PCR) Positive (NEGATIVE) A 05/28/23 16:00 Resp Viral Panel (PCR) See scanned report 05/28/23 16:00 Plan (1) Acute dehydration: Status: Acute Plan: ADMIT, NORMAL SALINE AT 75 ML/HR, XOPENEX NEBS TID, ROBITUSSIN DM 10ML QID, MAGNESIUM OXIDE, POTASSIUM CHLORIDE. HIS HOME MEDICATIONS OF ELIQUIS, VITAMIN C, ECOTRIN, VITAMIN D, ZYRTEC, DIGOXIN, LEXAPRO, SINGULAIR, PROTONIX, PROPRANOLOL, TAMSULOZIN, AND TRAZODONE WERE RESUMED. RESUME HOME MEDS (2) RSV bronchitis: Status: Acute (3) Generalized weakness: Status: Acute (4) Rib pain on left side: Status: Acute (5) History of recent fall: Status: Acute (6) Hematuria: Status: Acute Qualifiers: Hematuria type: unspecified type Qualified Code(s): R31.9 - Hematuria, unspecified (7) Aortic aneurysm: Status: Chronic Qualifiers: Aortic location: thoracic aorta Presence of rupture: without rupture T horacic aorta location: ascending aorta Qualified Code(s): I71.21 - Aneurysm of the ascending aorta, without rupture (8) Depression: Status: Chronic Qualifiers: Depression Type: major depressive disorder Major depression recurrence: recurrent Active/Remission status: currently active Major depression episode severity: unspecified Qualified Code(s): F33.9 - Major depressive disorder, recurrent, unspecified (9) GERD (gastroesophageal reflux disease): Status: Chronic Qualifiers: Esophagitis presence: esophagitis presence not specified Qualified Code(s): K21.9 - Gastro-esophageal reflux disease without esophagitis (10) Hypertension: Status: Chronic Qualifiers: Hypertension type: primary hypertension Qualified Code(s): I10 - Essential (primary) hypertension
[2023-05-31] MEDS: ASPIRIN EC 81 MG PO SCH (20:32)
[2023-05-31] MEDS: DESYREL PO SCH (20:32)
[2023-05-31] MEDS: CITRACAL + VITAMIN D PO SCH (20:32)
[2023-05-31] MEDS: ZyrTEC TAB 10 MG PO SCH (20:33)
[2023-05-31] MEDS: PROTONIX TAB 40 MG PO SCH (20:34)
[2023-06-01] MEDS: NS 1,000 ML IV 1,000 ML IV SCH ×4 (04:53→22:10)
[2023-06-01] MEDS: XOPENEX 1.25 MG/3 ML NEBULE NEB SCH ×3 (05:30→20:37)
[2023-06-01 06:10] LABS: BASOPHILS % (AUTO) 0.6 % (0.2-1.0); EOSINOPHILS # (AUTO) 0.5 x10^3/uL (0.0-0.2); EOSINOPHILS % (AUTO) 5.5 % (0.9-2.9); HEMOGLOBIN 13.6 g/dL (13.5-18.0); LYMPHOCYTES # (AUTO) 1.3 X10^3/uL (1.3-2.9); LYMPHOCYTES % (AUTO) 15.1 % (21.0-51.0); MEAN CORPUSCULAR HEMOGLOBIN 30.8 pg (27.0-34.0); MEAN CORPUSCULAR HGB CONC 33.2 g/dL (33.0-35.0); MEAN PLATELET VOLUME 8.9 fL (7.4-11.0); MONOCYTES # (AUTO) 0.8 x10^3/uL (0.3-0.8); NEUTROPHILS # (AUTO) 5.8 x10^3/uL (2.2-4.8); NEUTROPHILS % (AUTO) 68.8 % (42.0-75.0); PLATELET COUNT 160 X10^3/uL (150.0-450.0); RED CELL DISTRIBUTION WIDTH 15.7 % (11.6-16.5); WHITE BLOOD COUNT 8.4 X10^3/uL (3.6-10.0)
[2023-06-01 06:20] LABS: ALANINE AMINOTRANSFERASE 26 Units/L (12-78); ALBUMIN 2.5 g/dL (3.4-5.0); ALKALINE PHOSPHATASE 100 Units/L (46-116); ASPARTATE AMINO TRANSFERASE 26 Units/L (15-37); BLOOD UREA NITROGEN 11 mg/dL (7-18); CALCIUM 8.4 mg/dL (8.5-10.1); CARBON DIOXIDE 33.1 mmol/L (21-32); CHLORIDE 102 mmol/L (98-107); COR CA(FOR HYPOALB) 9.6 mg/dL (8.5-10.1); CREATININE 0.98 mg/dL (0.70-1.30); GLUCOSE 95 mg/dL (65-99); POTASSIUM 3.9 mmol/L (3.5-5.1); SODIUM 141 mmol/L (136-145); TOTAL PROTEIN 6.5 g/dL (6.4-8.2); eGFR NON BLACK RACES > 60 (>60)
--- NOTE | 2023-06-01 06:34 | RAD ---
EXAM:CHEST, 1 VIEWHISTORY:SOB ;COMPARISON:05/31/2023.TECHNIQUE:AP view of the chestFINDINGS:Cardiac silhouette is normal in size. There is prominence of the mediastinum with known thoracic aneurysm. Mild bibasilar patchy opacities remain. No definite pleural effusion or pneumothorax.IMPRESSION:Known thoracic aortic aneurysm. Similar-appearing mild bibasilar patchy opacities may represent atelectasis or infiltrate.THIS IS AN ELECTRONICALLY VERIFIED FINAL [id number]/01/2023 6:31 AM - Electronically signed by Freddie Mcgovern MD
[2023-06-01] MEDS ORDERED: LEXAPRO ONE (08:33)
[2023-06-01] MEDS: LEXAPRO PO SCH ×2 (08:38→09:12)
[2023-06-01] MEDS: ELIQUIS PO SCH ×2 (08:39→20:11)
[2023-06-01] MEDS: SINGULAIR TAB 10 MG PO SCH (08:40)
[2023-06-01] MEDS: INDERAL TAB 10 MG PO SCH (08:40)
[2023-06-01] MEDS: ROBITUSSIN DM PO SCH ×4 (08:41→20:12)
[2023-06-01] MEDS: FLOMAX PO SCH (13:13)
[2023-06-01] MEDS: VITAMIN C PO SCH (13:13)
[2023-06-01] MEDS: ZITHROMAX INJ 500 MG VIAL 500 MG in NS 250 ML IV 250 ML IV SCH (13:14)
[2023-06-01] MEDS: LANOXIN or DIGITEK PO SCH (13:54)
--- NOTE | 2023-06-01 14:35 | PCM.PROG ---
Progress Note Progress Note for Day of Date of Exam: 06/01/23 Subjective Subjective: IS A 87 YEAR OLD PATIENT OF DR KAT. HE IS CURRENTLY BEING TREATED FOR RSV BRONCHITIS AND PNEUMONIA AFTER HE PRESENTED TO THE HOSPITAL WITH COMPLAINTS OF PERSISTENT LEFT SIDED RIB PAIN AND NECK PAIN SINCE FALLING AT HOME EARLIER IN THE DAY. PATIENT REPORTS THAT HE HIT HIS RIBS ON THE TRASH CAN WHEN HE FELL. HE DESCRIBES PAIN CONSTANT, DULL, AND RATES PAIN A 6/10 ON ARRIVAL. ADDITIONALLY, HE COMPLAINS OF A PERSISTENT COUGH FOR THE PAST TWO WEEKS. PATIENTS SPOUSE HAD BEEN SICK WITH RESP ILLNESS PRIOR TO HIM BECOMING ILL. HIS PMH INCLUDES: ARTHRITIS, COPD, DEPRESSION, GERD, HTN, KIDNEY STONES, BLOOD CLOTS, HERNIA REPAIR, ANEURYSM REPAIR. HOME MEDICATIONS FOR CHORNIC DISEASE MANAGEMENT HAVE BEEN RESUMED. PT DENIES ANY N/V. SPOUSE AT BEDSIDE AND REPORTS PT HAS BEEN VERY FATIGUED AND SLEEPING MORE THAN NORMAL. SPOUSE REPORTS PT HAS HAD POOR PO INTAKE. CXR REVEALED PNEUMONIA. PT IS ON ZITHROMAX IV DAILY WITH DUO NEBS AND ANTITUSSIVES. PT HAS DIFFUSE EXPIRATORY WHEEZES ON EXAM. PLAN TO TRY LOW DOSE SOLU MEDROL 40MG IV DAILY IF HIS BLOOD SUGAR REMAINS STABLE. Past Medical Family Social History Allergies: Allergies No Known Drug Allergies Allergy (Verified 08/18/18 17:34) Vital Signs and I&O's Vital Signs: Vital Signs Temperature 98.6 F Temperature 99.7 F Pulse Rate [Bilateral Radial] 102 Pulse Rate [Bilateral Radial] 114 Pulse Rate 95 Pulse Rate 90 Respiratory Rate 20 Respiratory Rate 20 Blood Pressure [Left Arm] 102/69 Blood Pressure [Left Arm] 84/52 O2 Sat by Pulse Oximetry 96 O2 Sat by Pulse Oximetry 93 O2 Sat by Pulse Oximetry 91 Intake and Output: Intake & Output 05/30/23 05/31/23 06/01/23 06/02/23 11:59 11:59 11:59 11:59 Intake Total 3073 / 3073 2420 / 2420 2130 / 2130 Output Total 250 / 250 1400 / 1400 900 / 900 Balance 2823 / 2823 1020 / 1020 1230 / 1230 Physical Exam Oriented: Normal Eyes: Normal Ear: Normal Nose: Normal Throat: Normal Respiratory: Wheezes and Rhonchi Cardiovascular: Tachycardia : Hematuria Auscultation: Bowel Sounds: Normal Tenderness: Normal Skin: Normal Musculoskeletal: Leg and Motor Deficit (DIFFUSE MUSCEL WEAKNESS ) Psychiatric: Normal Mood Description: Calm Affect: Normal Speech Pattern: Clear Laboratory and Diagnostics 06/01/23 05:31 06/01/23 05:31 Labs: Laboratory WBC 8.4 X10^3/uL (3.6-10.0) 06/01/23 05:31 RBC 4.40 X10^6/uL (4.7-6.0) L 06/01/23 05:31 Hgb 13.6 g/dL (13.5-18.0) 06/01/23 05:31 Hct 41.0 % (42.0-54.0) L 06/01/23 05:31 MCV 93.0 fL (80.0-100.0) 06/01/23 05:31 MCH 30.8 pg (27.0-34.0) 06/01/23 05:31 MCHC 33.2 g/dL (33.0-35.0) 06/01/23 05:31 RDW 15.7 % (11.6-16.5) 06/01/23 05:31 Plt Count 160 X10^3/uL (150.0-450.0) 06/01/23 05:31 MPV 8.9 fL (7.4-11.0) 06/01/23 05:31 Neut % (Auto) 68.8 % (42.0-75.0) 06/01/23 05:31 Lymph % (Auto) 15.1 % (21.0-51.0) L 06/01/23 05:31 [place] % (Auto) 10.0 % (0.0-13.0) 06/01/23 05:31 Eos % (Auto) 5.5 % (0.9-2.9) H 06/01/23 05:31 Baso % (Auto) 0.6 % (0.2-1.0) 06/01/23 05:31 Neut # (Auto) 5.8 x10^3/uL (2.2-4.8) H 06/01/23 05:31 Lymph # (Auto) 1.3 X10^3/uL (1.3-2.9) 06/01/23 05:31 [place] # (Auto) 0.8 x10^3/uL (0.3-0.8) 06/01/23 05:31 Eos # (Auto) 0.5 x10^3/uL (0.0-0.2) H 06/01/23 05:31 Baso # (Auto) 0.0 X10^3/uL (0.0-0.1) 06/01/23 05:31 Absolute Nucleated RBC 0.1 /100WBC 06/01/23 05:31 Sodium 141 mmol/L (136-145) 06/01/23 05:31 Corrected Sodium TNP 06/01/23 05:31 Potassium 3.9 mmol/L (3.5-5.1) 06/01/23 05:31 Chloride 102 mmol/L (98-107) 06/01/23 05:31 Carbon Dioxide 33.1 mmol/L (21-32) H 06/01/23 05:31 BUN 11 mg/dL (7-18) 06/01/23 05:31 Creatinine 0.98 mg/dL (0.70-1.30) 06/01/23 05:31 Est GFR (MDRD) Af Amer > 60 (>60) 06/01/23 05:31 Est GFR (MDRD) Non-Af > 60 (>60) 06/01/23 05:31 Glucose 95 mg/dL (65-99) 06/01/23 05:31 Calcium 8.4 mg/dL (8.5-10.1) L 06/01/23 05:31 Corrected Calcium 9.6 mg/dL (8.5-10.1) 06/01/23 05:31 Magnesium 2.0 mg/dL (2.0-2.9) 05/30/23 04:55 Total Bilirubin 0.70 mg/dL (0.2-1.0) 06/01/23 05:31 AST 26 Units/L (15-37) 06/01/23 05:31 ALT 26 Units/L (12-78) 06/01/23 05:31 Alkaline Phosphatase 100 Units/L (46-116) 06/01/23 05:31 Creatine Kinase 34 Units/L (39-308) L 05/28/23 10:52 Troponin I High Sens 10.7 ng/L (4.0-60.0) 05/28/23 10:52 Total Protein 6.5 g/dL (6.4-8.2) 06/01/23 05:31 Albumin 2.5 g/dL (3.4-5.0) L 06/01/23 05:31 Globulin 4.0 g/dL (2.5-4.5) 06/01/23 05:31 Albumin/Globulin Ratio 0.6 Ratio (1.1-2.1) L 06/01/23 05:31 Specimen Type Clean catch urine 05/28/23 11:35 Urine Color Dark yellow (YELLOW) 05/28/23 11:35 Urine Appearance Clear (CLEAR) 05/28/23 11:35 Urine pH 6.0 (5.0 - 8.0) 05/28/23 11:35 Ur Specific [place] 1.020 (1.000-1.030) 05/28/23 11:35 Urine Protein 2+ (NEGATIVE) 05/28/23 11:35 Urine Glucose (UA) Negative (NEGATIVE) 05/28/23 11:35 Urine Ketones Negative (NEGATIVE) 05/28/23 11:35 Urine Blood 5+ (NEGATIVE) 05/28/23 11:35 Urine Nitrite Negative (NEGATIVE) 05/28/23 11:35 Urine Bilirubin Negative (NEGATIVE) 05/28/23 11:35 Urine Urobilinogen Normal (NORMAL) 05/28/23 11:35 Ur Leukocyte Esterase 1+ (NEGATIVE) 05/28/23 11:35 Urine RBC 20-30 /HPF (0-3) A 05/28/23 11:35 Urine WBC 0-2 /HPF (0-5) 05/28/23 11:35 Ur Squamous Epith Cells Rare /HPF (NEGATIVE) 05/28/23 11:35 Urine Bacteria Negative /HPF (NEGATIVE) 05/28/23 11:35 Ur Culture Indicated? No/not indicated 05/28/23 11:35 Digoxin 0.53 ng/mL (0.9-2) L 06/01/23 12:59 SARS-CoV-2 (PCR) Negative (NEGATIVE) 05/28/23 16:00 Influenza Type A (PCR) Negative (NEGATIVE) 05/28/23 16:00 Influenza Type B (PCR) Negative (NEGATIVE) 05/28/23 16:00 RSV (PCR) Positive (NEGATIVE) A 05/28/23 16:00 Resp Viral Panel (PCR) See scanned report 05/28/23 16:00 Plan (1) Pneumonia: Status: Acute Qualifiers: Pneumonia type: due to unspecified organism Laterality: unspecified laterality Lung location: unspecified part of lung Qualified Code(s): J18.9 - Pneumonia, unspecified organism Narrative Support Text: IV ATBX, RESP THERAPY, SUPPLEMENTAL O2 IV ZITHROMAX SOLU MEDROL WITH MONITORING OF BP AND BS GENTLE IV HYDRATION DUE TO HX OF CHF NEEDS PHYSICAL THERAPY, PULMONARY TOILETING (2) Acute dehydration: Status: Acute Plan: ADMIT, NORMAL SALINE AT 50 ML/HR, XOPENEX NEBS TID, ROBITUSSIN DM 10ML QID, MAGNESIUM OXIDE, POTASSIUM CHLORIDE. HIS HOME MEDICATIONS OF ELIQUIS, VITAMIN C, ECOTRIN, VITAMIN D, ZYRTEC, DIGOXIN, LEXAPRO, SINGULAIR, PROTONIX, RI OPRANOLOL, TAMSULOZIN, AND TRAZODONE WERE RESUMED. RESUME HOME MEDS (3) RSV bronchitis: Status: Acute (4) Generalized weakness: Status: Acute (5) Rib pain on left side: Status: Acute (6) History of recent fall: Status: Acute (7) Hematuria: Status: Acute Qualifiers: Hematuria type: unspecified type Qualified Code(s): R31.9 - Hematuria, unspecified (8) Aortic aneurysm: Status: Chronic Qualifiers: Aortic location: thoracic aorta Presence of rupture: without rupture Thoracic aorta location: ascending aorta Qualified Code(s): I71.21 - Aneurysm of the ascending aorta, without rupture (9) Depression: Status: Chronic Qualifiers: Depression Type: major depressive disorder Major depression recurrence: recurrent Active/Remission status: currently active Major depression episode severity: unspecified Qualified Code(s): F33.9 - Major depressive disorder, recurrent, unspecified (10) GERD (gastroesophageal reflux disease): Status: Chronic Qualifiers: Esophagitis presence: esophagitis presence not specified Qualified Code(s): K21.9 - Gastro-esophageal reflux disease without esophagitis (11) Hypertension: Status: Chronic Qualifiers: Hypertension type: primary hypertension Qualified Code(s): I10 - Essential (primary) hypertension
[2023-06-01] MEDS: SOLU-Medrol 40 MG VIAL IVP SCH (14:57)
[2023-06-01] MEDS: DESYREL PO SCH (20:10)
[2023-06-01] MEDS: PROTONIX TAB 40 MG PO SCH (20:11)
[2023-06-01] MEDS: ZyrTEC TAB 10 MG PO SCH (20:11)
[2023-06-01] MEDS: ASPIRIN EC 81 MG PO SCH (20:11)
[2023-06-01] MEDS: CITRACAL + VITAMIN D PO SCH (20:12)
[2023-06-02] MEDS: NS 1,000 ML IV 1,000 ML IV SCH ×4 (02:18→18:41)
[2023-06-02] MEDS: XOPENEX 1.25 MG/3 ML NEBULE NEB SCH ×3 (05:49→20:10)
--- NOTE | 2023-06-02 06:04 | RAD ---
HISTORYSOB HX: CAD, HTN SX: GBSTUDYCHEST, 1 [id number] trachea is midline. The cardiac silhouette is unremarkable. Prominence of the mediastinum due to known thoracic aneurysm. Mild bibasilar patchy opacities unchanged. No pneumothorax.. The bony thorax is unremarkable.IMPRESSIONIs known thoracic aortic aneurysm.Mild bibasilar patchy opacities.No significant change from 06/01/2023.Electronically signed by: Kendall Holt (Jun 02, 2023 06:03:36)
[2023-06-02 06:11] LABS: BASOPHILS % (AUTO) 0.2 % (0.2-1.0); HEMATOCRIT 40.3 % (42.0-54.0); HEMOGLOBIN 13.3 g/dL (13.5-18.0); LYMPHOCYTES # (AUTO) 0.7 X10^3/uL (1.3-2.9); MEAN CORPUSCULAR HEMOGLOBIN 30.6 pg (27.0-34.0); MEAN CORPUSCULAR HGB CONC 32.9 g/dL (33.0-35.0); MEAN CORPUSCULAR VOLUME 92.9 fL (80.0-100.0); MEAN PLATELET VOLUME 8.7 fL (7.4-11.0); MONOCYTES # (AUTO) 0.3 x10^3/uL (0.3-0.8); MONOCYTES % (AUTO) 2.6 % (0.0-13.0); NEUTROPHILS # (AUTO) 10.9 x10^3/uL (2.2-4.8); NEUTROPHILS % (AUTO) 91.2 % (42.0-75.0); PLATELET COUNT 181 X10^3/uL (150.0-450.0); RED BLOOD COUNT 4.35 X10^6/uL (4.7-6.0); RED CELL DISTRIBUTION WIDTH 15.5 % (11.6-16.5)
[2023-06-02 06:26] LABS: ALANINE AMINOTRANSFERASE 26 Units/L (12-78); ALBUMIN 2.4 g/dL (3.4-5.0); ALKALINE PHOSPHATASE 96 Units/L (46-116); ASPARTATE AMINO TRANSFERASE 22 Units/L (15-37); BLOOD UREA NITROGEN 15 mg/dL (7-18); CALCIUM 8.5 mg/dL (8.5-10.1); CARBON DIOXIDE 32.8 mmol/L (21-32); CHLORIDE 104 mmol/L (98-107); COR CA(FOR HYPOALB) 9.8 mg/dL (8.5-10.1); COR NA(FOR HYPERGLY) 143 mmol/L (136-145); CREATININE 1.08 mg/dL (0.70-1.30); GLUCOSE 162 mg/dL (65-99); POTASSIUM 4.4 mmol/L (3.5-5.1); SODIUM 142 mmol/L (136-145); TOTAL PROTEIN 6.5 g/dL (6.4-8.2); eGFR NON BLACK RACES > 60 (>60)
[2023-06-02 06:29] LABS: PLATELET MORPHOLOGY COMMENT NORMAL (NORMAL)
[2023-06-02] MEDS ORDERED: LEXAPRO ONE (07:36)
[2023-06-02] MEDS: ELIQUIS PO SCH ×2 (09:12→20:25)
[2023-06-02] MEDS: INDERAL TAB 10 MG PO SCH (09:12)
[2023-06-02] MEDS: SINGULAIR TAB 10 MG PO SCH (09:13)
[2023-06-02] MEDS: SOLU-Medrol 40 MG VIAL IVP SCH (09:14)
[2023-06-02] MEDS: ZITHROMAX INJ 500 MG VIAL 500 MG in NS 250 ML IV 250 ML IV SCH (09:14)
[2023-06-02] MEDS: ROBITUSSIN DM PO SCH ×4 (09:14→20:24)
[2023-06-02] MEDS: LEXAPRO PO SCH (09:18)
[2023-06-02 12:03] LABS: MYCOPLASMA PNEUMONIAE IGM AB NEGATIVE (NEGATIVE)
[2023-06-02] MEDS: LANOXIN or DIGITEK PO SCH (12:18)
[2023-06-02] MEDS: FLOMAX PO SCH (12:18)
[2023-06-02] MEDS: VITAMIN C PO SCH (12:22)
--- NOTE | 2023-06-02 20:02 | PCM.PROG ---
Progress Note Progress Note for Day of Date of Exam: 06/02/23 Subjective Subjective: IS A 87 YEAR O[address] PATIENT OF DR KAT. HE IS CURRENTLY BEING TREATED FOR RSV BRONCHITIS AND PNEUMONIA AFTER HE PRESENTED TO THE HOSPITAL WITH COMPLAINTS OF PERSISTENT LEFT SIDED RIB PAIN AND NECK PAIN SINCE FALLING AT HOME EARLIER IN THE DAY. PATIENT REPORTS THAT HE HIT HIS RIBS ON THE TRASH CAN WHEN HE FELL. HE DESCRIBES PAIN CONSTANT, DULL, AND RATES PAIN A 6/10 ON ARRIVAL. ADDITIONALLY, HE COMPLAINS OF A PERSISTENT COUGH FOR THE PAST TWO WEEKS. PATIENTS SPOUSE HAD BEEN SICK WITH RESP ILLNESS PRIOR TO HIM BECOMING ILL. HIS PMH INCLUDES: ARTHRITIS, COPD, DEPRESSION, GERD, HTN, KIDNEY STONES, BLOOD CLOTS, HERNIA REPAIR, ANEURYSM REPAIR. HOME MEDICATIONS FOR CHORNIC DISEASE MANAGEMENT HAVE BEEN RESUMED. PT DENIES ANY N/V. SPOUSE AT BEDSIDE AND REPORTS PT HAS BEEN VERY FATIGUED AND SLEEPING MORE THAN NORMAL. SPOUSE REPORTS PT HAS HAD POOR PO INTAKE. CXR REVEALED PNEUMONIA. PT IS ON ZITHROMAX IV DAILY WITH DUO NEBS AND ANTITUSSIVES. PT HAS DIFFUSE EXPIRATORY WHEEZES ON EXAM. PLAN TO TRY LOW DOSE SOLU MEDROL 40MG IV DAILY IF HIS BLOOD SUGAR REMAINS STABLE. Sunday, 02 June 2023 The patient is resting comfortably this morning with no new complaints. He does have RSV and has been treated by his primary care physician for this and wants to keep the patient for the next few days until he gets somewhat better before he goes home. The patient's spouse has been sick with a respiratory illness as well, so we will try to get Mr. Griffin feeling better before he goes home. He is still sleeping a lot, according to his family and not having a lot of energy at this time. His labs are looking better overall so we will continue his current treatment. Past Medical Family Social History Allergies: Allergies No Known Drug Allergies Allergy (Verified 08/18/18 17:34) Vital Signs and I&O's Vital Signs: Vital Signs Temperature 97.8 F Temperature 98.2 F Pulse Rate [Bilateral Radial] 92 Pulse Rate [Bilateral Radial] 98 Pulse Rate 76 Respiratory Rate 18 Respiratory Rate 20 Blood Pressure [Left Arm] 102/66 Blood Pressure [Left Arm] 96/63 O2 Sat by Pulse Oximetry 91 O2 Sat by Pulse Oximetry 96 O2 Sat by Pulse Oximetry 96 Intake and Output: Intake & Output 05/30/23 05/31/23 06/01/23 06/02/23 11:59 11:59 11:59 11:59 Intake Total 3073 / 3073 2420 / 2420 2130 / 2130 2369 / 2369 Output Total 250 / 250 1400 / 1400 900 / 900 1150 / 1150 Balance 2823 / 2823 1020 / 1020 1230 / 1230 1219 / 1219 Physical Exam Oriented: Normal Eyes: Normal Ear: Normal Nose: Normal Throat: Normal Respiratory: Wheezes and Rhonchi Cardiovascular: Tachycardia : Hematuria Auscultation: Bowel Sounds: Normal Tenderness: Normal Skin: Normal Musculoskeletal: Leg and Motor Deficit (DIFFUSE MUSCEL WEAKNESS ) Psychiatric: Normal Mood Description: Calm Affect: Normal Speech Pattern: Clear Laboratory and Diagnostics 06/02/23 05:23 06/02/23 05:23 Labs: Laboratory WBC 12.0 X10^3/uL (3.6-10.0) H 06/02/23 05:23 RBC 4.35 X10^6/uL (4.7-6.0) L 06/02/23 05:23 Hgb 13.3 g/dL (13.5-18.0) L 06/02/23 05:23 Hct 40.3 % (42.0-54.0) L 06/02/23 05:23 MCV 92.9 fL (80.0-100.0) 06/02/23 05:23 MCH 30.6 pg (27.0-34.0) 06/02/23 05:23 MCHC 32.9 g/dL (33.0-35.0) L 06/02/23 05:23 RDW 15.5 % (11.6-16.5) 06/02/23 05:23 Plt Count 181 X10^3/uL (150.0-450.0) 06/02/23 05:23 Plt Count Comment Adequate (ADEQUATE) 06/02/23 05:23 MPV 8.7 fL (7.4-11.0) 06/02/23 05:23 Neut % (Auto) 91.2 % (42.0-75.0) H 06/02/23 05:23 Lymph % (Auto) 6.0 % (21.0-51.0) L 06/02/23 05:23 [place] % (Auto) 2.6 % (0.0-13.0) 06/02/23 05:23 Eos % (Auto) 0.0 % (0.9-2.9) L 06/02/23 05:23 Baso % (Auto) 0.2 % (0.2-1.0) 06/02/23 05:23 Neut # (Auto) 10.9 x10^3/uL (2.2-4.8) H 06/02/23 05:23 Lymph # (Auto) 0.7 X10^3/uL (1.3-2.9) L 06/02/23 05:23 [place] # (Auto) 0.3 x10^3/uL (0.3-0.8) 06/02/23 05:23 Eos # (Auto) 0.0 x10^3/uL (0.0-0.2) 06/02/23 05:23 Baso # (Auto) 0.0 X10^3/uL (0.0-0.1) 06/02/23 05:23 Absolute Nucleated RBC 0.1 /100WBC 06/02/23 05:23 Total Counted 100 06/02/23 05:23 Neutrophils % (Manual) 88 % (39-76) H 06/02/23 05:23 Lymphocytes % (Manual) 9 % (13-43) L 06/02/23 05:23 Monocytes % (Manual) 3 % (4-9) L 06/02/23 05:23 Plt Morphology Comment Normal (NORMAL) 06/02/23 05:23 RBC Morphology Normal (NORMAL) 06/02/23 05:23 Sodium 142 mmol/L (136-145) 06/02/23 05:23 Corrected Sodium 143 mmol/L (136-145) 06/02/23 05:23 Potassium 4.4 mmol/L (3.5-5.1) 06/02/23 05:23 Chloride 104 mmol/L (98-107) 06/02/23 05:23 Carbon Dioxide 32.8 mmol/L (21-32) H 06/02/23 05:23 BUN 15 mg/dL (7-18) 06/02/23 05:23 Creatinine 1.08 mg/dL (0.70-1.30) 06/02/23 05:23 Est GFR (MDRD) Af Amer > 60 (>60) 06/02/23 05:23 Est GFR (MDRD) Non-Af > 60 (>60) 06/02/23 05:23 Glucose 162 mg/dL (65-99) H 06/02/23 05:23 Calcium 8.5 mg/dL (8.5-10.1) 06/02/23 05:23 Corrected Calcium 9.8 mg/dL (8.5-10.1) 06/02/23 05:23 Magnesium 2.0 mg/dL (2.0-2.9) 05/30/23 04:55 Total Bilirubin 0.40 mg/dL (0.2-1.0) 06/02/23 05:23 AST 22 Units/L (15-37) 06/02/23 05:23 ALT 26 Units/L (12-78) 06/02/23 05:23 Alkaline Phosphatase 96 Units/L (46-116) 06/02/23 05:23 Creatine Kinase 34 Units/L (39-308) L 05/28/23 10:52 Troponin I High Sens 10.7 ng/L (4.0-60.0) 05/28/23 10:52 Total Protein 6.5 g/dL (6.4-8.2) 06/02/23 05:23 Albumin 2.4 g/dL (3.4-5.0) L 06/02/23 05:23 Globulin 4.1 g/dL (2.5-4.5) 06/02/23 05:23 Albumin/Globulin Ratio 0.6 Ratio (1.1-2.1) L 06/02/23 05:23 Specimen Type Clean catch urine 05/28/23 11:35 Urine Color Dark yellow (YELLOW) 05/28/23 11:35 Urine Appearance Clear (CLEAR) 05/28/23 11:35 Urine pH 6.0 (5.0 - 8.0) 05/28/23 11:35 Ur Specific [place] 1.020 (1.000-1.030) 05/28/23 11:35 Urine Protein 2+ (NEGATIVE) 05/28/23 11:35 Urine Glucose (UA) Negative (NEGATIVE) 05/28/23 11:35 Urine Ketones Negative (NEGATIVE) 05/28/23 11:35 Urine Blood 5+ (NEGATIVE) 05/28/23 11:35 Urine Nitrite Negative (NEGATIVE) 05/28/23 11:35 Urine Bilirubin Negative (NEGATIVE) 05/28/23 11:35 Urine Urobilinogen Normal (NORMAL) 05/28/23 11:35 Ur Leukocyte Esterase 1+ (NEGATIVE) 05/28/23 11:35 Urine RBC 20-30 /HPF (0-3) A 05/28/23 11:35 Urine WBC 0-2 /HPF (0-5) 05/28/23 11:35 Ur Squamous Epith Cells Rare /HPF (NEGATIVE) 05/28/23 11:35 Urine Bacteria Negative /HPF (NEGATIVE) 05/28/23 11:35 Ur Culture Indicated? No/not indicated 05/28/23 11:35 Digoxin 0.53 ng/mL (0.9-2) L 06/01/23 12:59 SARS-CoV-2 (PCR) Negative (NEGATIVE) 05/28/23 16:00 Influenza Type A (PCR) Negative (NEGATIVE) 05/28/23 16:00 Influenza Type B (PCR) Negative (NEGATIVE) 05/28/23 16:00 RSV (PCR) Positive (NEGATIVE) A 05/28/23 16:00 Resp Viral Panel (PCR) See scanned report 05/28/23 16:00 Radiology Reviewed: Yes Plan (1) Pneumonia: Status: Acute Qualifiers: Laterality: unspecified laterality Lung location: unspecified part of lung Pneumonia type: due to unspecified organism Qualified Code(s): J18.9 - Pneumonia, unspecified organism (2) Acute dehydration: Status: Acute Plan: ADMIT, NORMAL SALINE AT 50 ML/HR, XOPENEX NEBS TID, ROBITUSSIN DM 10ML QID, MAGNESIUM OXIDE, POTASSIUM CHLORIDE. HIS HOME MEDICATIONS OF ELIQUIS, VITAMIN C, ECOTRIN, VITAMIN D, ZYRTEC, DIGOXIN, LEXAPRO, SINGULAIR, PROTONIX, PROPRANOLOL, TAMSULOZIN, AND TRAZODONE WERE RESUMED. RESUME HOME MEDS (3) RSV bronchitis: Status: Acute (4) Generalized weakness: Status: Acute (5) Rib pain on left side: Status: Acute (6) History of recent fall: Status: Acute (7) Hematuria: Status: Acute Qualifiers: Hematuria type: unspecified type Qualified Code(s): R31.9 - Hematuria, unspecified (8) Aortic aneurysm: Status: Chronic Qualifiers: Aortic location: thoracic aorta Presence of rupture: without rupture Thoracic aorta location: ascending aorta Qualified Code(s): I71.21 - Aneurysm of the ascending aorta, without rupture (9) Depression: Status: Chronic Qualifiers: Active/Remission status: currently active Depression Type: major de pressive disorder Major depression episode severity: unspecified Major depression recurrence: recurrent Qualified Code(s): F33.9 - Major depressive disorder, recurrent, unspecified (10) GERD (gastroesophageal reflux disease): Status: Chronic Qualifiers: Esophagitis presence: esophagitis presence not specified Qualified Code(s): K21.9 - Gastro-esophageal reflux disease without esophagitis (11) Hypertension: Status: Chronic Qualifiers: Hypertension type: primary hypertension Qualified Code(s): I10 - Essential (primary) hypertension
[2023-06-02] MEDS: DESYREL PO SCH (20:24)
[2023-06-02] MEDS: PROTONIX TAB 40 MG PO SCH (20:25)
[2023-06-02] MEDS: ASPIRIN EC 81 MG PO SCH (20:25)
[2023-06-02] MEDS: ZyrTEC TAB 10 MG PO SCH (20:25)
[2023-06-02] MEDS: CITRACAL + VITAMIN D PO SCH (20:25)
[2023-06-03] MEDS: NS 1,000 ML IV 1,000 ML IV SCH ×4 (02:25→23:21)
[2023-06-03] MEDS: XOPENEX 1.25 MG/3 ML NEBULE NEB SCH ×3 (05:11→20:57)
[2023-06-03 05:56] LABS: BASOPHILS # (AUTO) 0.1 X10^3/uL (0.0-0.1); BASOPHILS % (AUTO) 0.4 % (0.2-1.0); EOSINOPHILS % (AUTO) 0.3 % (0.9-2.9); HEMATOCRIT 37.8 % (42.0-54.0); HEMOGLOBIN 12.4 g/dL (13.5-18.0); LYMPHOCYTES # (AUTO) 1.2 X10^3/uL (1.3-2.9); LYMPHOCYTES % (AUTO) 7.8 % (21.0-51.0); MEAN CORPUSCULAR HEMOGLOBIN 30.4 pg (27.0-34.0); MEAN CORPUSCULAR HGB CONC 32.8 g/dL (33.0-35.0); MEAN CORPUSCULAR VOLUME 92.5 fL (80.0-100.0); MEAN PLATELET VOLUME 8.8 fL (7.4-11.0); MONOCYTES # (AUTO) 0.9 x10^3/uL (0.3-0.8); NEUTROPHILS # (AUTO) 13.3 x10^3/uL (2.2-4.8); NEUTROPHILS % (AUTO) 85.5 % (42.0-75.0); PLATELET COUNT 194 X10^3/uL (150.0-450.0); RED BLOOD COUNT 4.09 X10^6/uL (4.7-6.0); RED CELL DISTRIBUTION WIDTH 15.1 % (11.6-16.5); WHITE BLOOD COUNT 15.5 X10^3/uL (3.6-10.0)
[2023-06-03 06:09] LABS: ALANINE AMINOTRANSFERASE 21 Units/L (12-78); ALBUMIN 2.2 g/dL (3.4-5.0); ALKALINE PHOSPHATASE 82 Units/L (46-116); ASPARTATE AMINO TRANSFERASE 15 Units/L (15-37); BLOOD UREA NITROGEN 19 mg/dL (7-18); CALCIUM 8.1 mg/dL (8.5-10.1); CARBON DIOXIDE 33.1 mmol/L (21-32); CHLORIDE 105 mmol/L (98-107); COR CA(FOR HYPOALB) 9.5 mg/dL (8.5-10.1); COR NA(FOR HYPERGLY) 141 mmol/L (136-145); CREATININE 0.83 mg/dL (0.70-1.30); GLUCOSE 115 mg/dL (65-99); POTASSIUM 3.9 mmol/L (3.5-5.1); SODIUM 141 mmol/L (136-145); TOTAL PROTEIN 5.8 g/dL (6.4-8.2); eGFR NON BLACK RACES > 60 (>60)
[2023-06-03] MEDS ORDERED: LEXAPRO ONE (08:07)
[2023-06-03] MEDS: ROBITUSSIN DM PO SCH ×4 (09:24→20:03)
[2023-06-03] MEDS: ELIQUIS PO SCH ×2 (09:24→20:03)
[2023-06-03] MEDS: LEXAPRO PO SCH (09:24)
[2023-06-03] MEDS: SOLU-Medrol 40 MG VIAL IVP SCH (09:24)
[2023-06-03] MEDS: SINGULAIR TAB 10 MG PO SCH (09:24)
[2023-06-03] MEDS: INDERAL TAB 10 MG PO SCH (09:24)
[2023-06-03] MEDS: ZITHROMAX INJ 500 MG VIAL 500 MG in NS 250 ML IV 250 ML IV SCH (09:25)
[2023-06-03] MEDS: LANOXIN or DIGITEK PO SCH (13:30)
[2023-06-03] MEDS: FLOMAX PO SCH (13:30)
[2023-06-03] MEDS: VITAMIN C PO SCH (13:31)
--- NOTE | 2023-06-03 14:23 | PCM.PROG ---
Progress Note Progress Note for Day of Date of Exam: 06/03/23 Subjective Subjective: IS A 87 YEAR OLD PATIENT OF DR KAT. HE IS CURRENTLY BEING TREATED FOR RSV BRONCHITIS AND PNEUMONIA AFTER HE PRESENTED TO THE HOSPITAL WITH COMPLAINTS OF PERSISTENT LEFT SIDED RIB PAIN AND NECK PAIN SINCE FALLING AT HOME EARLIER IN THE DAY. PATIENT REPORTS THAT HE HIT HIS RIBS ON THE TRASH CAN WHEN HE FELL. HE DESCRIBES PAIN CONSTANT, DULL, AND RATES PAIN A 6/10 ON ARRIVAL. ADDITIONALLY, HE COMPLAINS OF A PERSISTENT COUGH FOR THE PAST TWO WEEKS. PATIENTS SPOUSE HAD BEEN SICK WITH RESP ILLNESS PRIOR TO HIM BECOMING ILL. HIS PMH INCLUDES: ARTHRITIS, COPD, DEPRESSION, GERD, HTN, KIDNEY STONES, BLOOD CLOTS, HERNIA REPAIR, ANEURYSM REPAIR. HOME MEDICATIONS FOR CHORNIC DISEASE MANAGEMENT HAVE BEEN RESUMED. PT DENIES ANY N/V. SPOUSE AT BEDSIDE AND REPORTS PT HAS BEEN VERY FATIGUED AND SLEEPING MORE THAN NORMAL. SPOUSE REPORTS PT HAS HAD POOR PO INTAKE. CXR REVEALED PNEUMONIA. PT IS ON ZITHROMAX IV DAILY WITH DUO NEBS AND ANTITUSSIVES. PT HAS DIFFUSE EXPIRATORY WHEEZES ON EXAM. PLAN TO TRY LOW DOSE SOLU MEDROL 40MG IV DAILY IF HIS BLOOD SUGAR REMAINS STABLE. Sunday, 02 June 2023 The patient is resting comfortably this morning with no new complaints. He does have RSV and has been treated by his primary care physician for this and wants to keep the patient for the next few days until he gets somewhat better before he goes home. The patient's spouse has been sick with a respiratory illness as well, so we will try to get Mr. Griffin feeling better before he goes home. He is still sleeping a lot, according to his family and not having a lot of energy at this time. His labs are looking better overall so we will continue his current treatment. 03 June 2023 The patient is in good spirits this morning and is alert and awake. He is joking around with the nurses and is getting back to his normal baseline according to his . He has no new complaints this morning and is responding well to treatment. I do note that his white blood cell count is elevated some but his vital signs are stable. He does have RSV and is on steroids for that. We will continue current treatment and Isabel Mcnally nurse practitioner will assume care tomorrow and discharge him later in the week once he is able to ambulate better. We will assume care tomorrow since Dr. Cartagena is out of town Past Medical Family Social History Allergies: Allergies No Known Drug Allergies Allergy (Verified 08/18/18 17:34) Review of Systems ROS: No change since H&P Vital Signs and I&O's Vital Signs: Vital Signs Temperature 97.2 F Temperature 98.2 F Pulse Rate [Bilateral Radial] 69 Pulse Rate [Bilateral Radial] 71 Respiratory Rate 20 Respiratory Rate 20 Blood Pressure [Left Arm] 103/63 Blood Pressure [Left Arm] 100/53 O2 Sat by Pulse Oximetry 96 O2 Sat by Pulse Oximetry 93 Intake and Output: Intake & Output 05/31/23 06/01/23 06/02/23 06/03/23 11:59 11:59 11:59 11:59 Intake Total 2420 / 2420 2130 / 2130 2369 / 2369 2076 / 2076 Output Total 1400 / 1400 900 / 900 1150 / 1150 1550 / 1550 Balance 1020 / 1020 1230 / 1230 1219 / 1219 526 / 526 Physical Exam Oriented: Normal Eyes: Normal Ear: Normal Nose: Normal Throat: Normal Respiratory: Wheezes and Rhonchi Cardiovascular: Tachycardia : Hematuria Auscultation: Bowel Sounds: Normal Tenderness: Normal Skin: Normal Musculoskeletal: Leg and Motor Deficit (DIFFUSE MUSCEL WEAKNESS ) Psychiatric: Normal Mood Description: Calm Affect: Normal Speech Pattern: Clear Laboratory and Diagnostics 06/03/23 05:16 06/03/23 05:16 Labs: Laboratory WBC 15.5 X10^3/uL (3.6-10.0) H 06/03/23 05:16 RBC 4.09 X10^6/uL (4.7-6.0) L 06/03/23 05:16 Hgb 12.4 g/dL (13.5-18.0) L 06/03/23 05:16 Hct 37.8 % (42.0-54.0) L 06/03/23 05:16 MCV 92.5 fL (80.0-100.0) 06/03/23 05:16 MCH 30.4 pg (27.0-34.0) 06/03/23 05:16 MCHC 32.8 g/dL (33.0-35.0) L 06/03/23 05:16 RDW 15.1 % (11.6-16.5) 06/03/23 05:16 Plt Count 194 X10^3/uL (150.0-450.0) 06/03/23 05:16 Plt Count Comment Adequate (ADEQUATE) 06/02/23 05:23 MPV 8.8 fL (7.4-11.0) 06/03/23 05:16 Neut % (Auto) 85.5 % (42.0-75.0) H 06/03/23 05:16 Lymph % (Auto) 7.8 % (21.0-51.0) L 06/03/23 05:16 [place] % (Auto) 6.0 % (0.0-13.0) 06/03/23 05:16 Eos % (Auto) 0.3 % (0.9-2.9) L 06/03/23 05:16 Baso % (Auto) 0.4 % (0.2-1.0) 06/03/23 05:16 Neut # (Auto) 13.3 x10^3/uL (2.2-4.8) H 06/03/23 05:16 Lymph # (Auto) 1.2 X10^3/uL (1.3-2.9) L 06/03/23 05:16 [place] # (Auto) 0.9 x10^3/uL (0.3-0.8) H 06/03/23 05:16 Eos # (Auto) 0.0 x10^3/uL (0.0-0.2) 06/03/23 05:16 Baso # (Auto) 0.1 X10^3/uL (0.0-0.1) 06/03/23 05:16 Absolute Nucleated RBC 0.0 /100WBC 06/03/23 05:16 Total Counted 100 06/02/23 05:23 Neutrophils % (Manual) 88 % (39-76) H 06/02/23 05:23 Lymphocytes % (Manual) 9 % (13-43) L 06/02/23 05:23 Monocytes % (Manual) 3 % (4-9) L 06/02/23 05:23 Plt Morphology Comment Normal (NORMAL) 06/02/23 05:23 RBC Morphology Normal (NORMAL) 06/02/23 05:23 Sodium 141 mmol/L (136-145) 06/03/23 05:16 Corrected Sodium 141 mmol/L (136-145) 06/03/23 05:16 Potassium 3.9 mmol/L (3.5-5.1) 06/03/23 05:16 Chloride 105 mmol/L (98-107) 06/03/23 05:16 Carbon Dioxide 33.1 mmol/L (21-32) H 06/03/23 05:16 BUN 19 mg/dL (7-18) H 06/03/23 05:16 Creatinine 0.83 mg/dL (0.70-1.30) 06/03/23 05:16 Est GFR (MDRD) Af Amer > 60 (>60) 06/03/23 05:16 Est GFR (MDRD) Non-Af > 60 (>60) 06/03/23 05:16 Glucose 115 mg/dL (65-99) H 06/03/23 05:16 Calcium 8.1 mg/dL (8.5-10.1) L 06/03/23 05:16 Corrected Calcium 9.5 mg/dL (8.5-10.1) 06/03/23 05:16 Magnesium 2.0 mg/dL (2.0-2.9) 05/30/23 04:55 Total Bilirubin 0.30 mg/dL (0.2-1.0) 06/03/23 05:16 AST 15 Units/L (15-37) 06/03/23 05:16 ALT 21 Units/L (12-78) 06/03/23 05:16 Alkaline Phosphatase 82 Units/L (46-116) 06/03/23 05:16 Creatine Kinase 34 Units/L (39-308) L 05/28/23 10:52 Troponin I High Sens 10.7 ng/L (4.0-60.0) 05/28/23 10:52 Total Protein 5.8 g/dL (6.4-8.2) L 06/03/23 05:16 Albumin 2.2 g/dL (3.4-5.0) L 06/03/23 05:16 Globulin 3.6 g/dL (2.5-4.5) 06/03/23 05:16 Albumin/Globulin Ratio 0.6 Ratio (1.1-2.1) L 06/03/23 05:16 Specimen Type Clean catch urine 05/28/23 11:35 Urine Color Dark yellow (YELLOW) 05/28/23 11:35 Urine Appearance Clear (CLEAR) 05/28/23 11:35 Urine pH 6.0 (5.0 - 8.0) 05/28/23 11:35 Ur Specific [place] 1.020 (1.000-1.030) 05/28/23 11:35 Urine Protein 2+ (NEGATIVE) 05/28/23 11:35 Urine Glucose (UA) Negative (NEGATIVE) 05/28/23 11:35 Urine Ketones Negative (NEGATIVE) 05/28/23 11:35 Urine Blood 5+ (NEGATIVE) 05/28/23 11:35 Urine Nitrite Negative (NEGATIVE) 05/28/23 11:35 Urine Bilirubin Negative (NEGATIVE) 05/28/23 11:35 Urine Urobilinogen Normal (NORMAL) 05/28/23 11:35 Ur Leukocyte Esterase 1+ (NEGATIVE) 05/28/23 11:35 Urine RBC 20-30 /HPF (0-3) A 05/28/23 11:35 Urine WBC 0-2 /HPF (0-5) 05/28/23 11:35 Ur Squamous Epith Cells Rare /HPF (NEGATIVE) 05/28/23 11:35 Urine Bacteria Negative /HPF (NEGATIVE) 05/28/23 11:35 Ur Culture Indicated? No/not indicated 05/28/23 11:35 Digoxin 0.53 ng/mL (0.9-2) L 06/01/23 12:59 SARS-CoV-2 (PCR) Negative (NEGATIVE) 05/28/23 16:00 Influenza Type A (PCR) Negative (NEGATIVE) 05/28/23 16:00 Influenza Type B (PCR) Negative (NEGATIVE) 05/28/23 16:00 Mycoplasma pneumon IgG Negative (NEGATIVE) 06/02/23 05:23 RSV (PCR) Positive (NEGATIVE) A 05/28/23 16:00 Resp Viral Panel (PCR) See scanned report 05/28/23 16:00 Radiology Reviewed: Yes Plan (1) Pneumonia: Status: Acute Qualifiers: Laterality: unspecified laterality Lung location: unspecified part of lung Pneumonia type: due to unspecified organism Qualified Code(s): J18.9 - Pneumonia, unspecified organism (2) Acute dehydration: Status: Acute Plan: ADMIT, NORMAL SALINE AT 50 ML/HR, XOPENEX NEBS TID, ROBITUSSIN DM 10ML QID, MAGNESIUM OXIDE, POTASSIUM CHLORIDE. HIS HOME MEDICATIONS OF ELIQUIS, VITAMIN C, ECOTRIN, VITAMIN D, ZYRTEC, DIGOXIN, LEXAPRO, SINGULAIR, PROTONIX, PROPRANOLOL, TAMSULOZIN, AND TRAZODONE WERE RESUMED. RESUME HOME MEDS (3) RSV bronchitis: Status: Acute (4) Generalized weakness: Status: Acute (5) Rib pain on left side: Status: Acute (6) History of recent fall: Status: Acute (7) Hematuria: Status: Acute Qualifiers: Hematuria type: unspecified type Qualified Code(s): R31.9 - Hematuria, unspecified (8) Aortic aneurysm: Status: Chronic Qualifiers: Aortic location: thoracic aorta Presence of rupture: without rupture Thoracic aorta location: ascending aorta Qualified Code(s): I71.21 - Aneurysm of the ascending aorta, without rupture (9) Depression: Status: Chronic Qualifiers: Active/Remission status: currently active Depression Type: major depressive disorder Major depression episode severity: unspecified Major depression recurrence: recurrent Qualified Code(s): F33.9 - Major depressive disorder, recurrent, unspecified (10) GERD (gastroesophageal reflux disease): Status: Chronic Qualifiers: Esophagitis presence: esophagitis presence not specified Qualified Code(s): K21.9 - Gastro-esophageal reflux disease without esophagitis (11) Hypertension: Status: Chronic Qualifiers: Hypertension type: primary hypertension Qualified Code(s): I10 - Essential (primary) hypertension
[2023-06-03] MEDS: PROTONIX TAB 40 MG PO SCH (20:02)
[2023-06-03] MEDS: DESYREL PO SCH (20:02)
[2023-06-03] MEDS: ZyrTEC TAB 10 MG PO SCH (20:03)
[2023-06-03] MEDS: ASPIRIN EC 81 MG PO SCH (20:03)
[2023-06-03] MEDS: CITRACAL + VITAMIN D PO SCH (20:03)
--- NOTE | 2023-06-04 05:08 | RAD ---
HISTORYrsv, pneumonia hx htn, mi.br spineSTUDYCHEST, 1 [id number] trachea is midline. The cardiac silhouette is unremarkable. Prominence of the mediastinum due to known thoracic aneurysm. Mild bibasilar patchy opacities unchanged.. The bony thorax is unremarkable.IMPRESSIONStable portable chest.Electronically signed by: Kendall Holt (Jun 04, 2023 05:01:54)
[2023-06-04 06:03] LABS: BASOPHILS % (AUTO) 0.3 % (0.2-1.0); EOSINOPHILS % (AUTO) 0.3 % (0.9-2.9); HEMATOCRIT 38.3 % (42.0-54.0); HEMOGLOBIN 12.7 g/dL (13.5-18.0); LYMPHOCYTES # (AUTO) 1.4 X10^3/uL (1.3-2.9); LYMPHOCYTES % (AUTO) 11.2 % (21.0-51.0); MEAN CORPUSCULAR HEMOGLOBIN 30.6 pg (27.0-34.0); MEAN CORPUSCULAR HGB CONC 33.1 g/dL (33.0-35.0); MEAN CORPUSCULAR VOLUME 92.6 fL (80.0-100.0); MEAN PLATELET VOLUME 8.5 fL (7.4-11.0); MONOCYTES % (AUTO) 7.6 % (0.0-13.0); NEUTROPHILS # (AUTO) 10.3 x10^3/uL (2.2-4.8); NEUTROPHILS % (AUTO) 80.6 % (42.0-75.0); PLATELET COUNT 196 X10^3/uL (150.0-450.0); RED BLOOD COUNT 4.14 X10^6/uL (4.7-6.0); RED CELL DISTRIBUTION WIDTH 15.4 % (11.6-16.5); WHITE BLOOD COUNT 12.8 X10^3/uL (3.6-10.0)
[2023-06-04 06:13] LABS: ALANINE AMINOTRANSFERASE 26 Units/L (12-78); ALBUMIN 2.3 g/dL (3.4-5.0); ALKALINE PHOSPHATASE 81 Units/L (46-116); ASPARTATE AMINO TRANSFERASE 21 Units/L (15-37); BLOOD UREA NITROGEN 21 mg/dL (7-18); CALCIUM 8.2 mg/dL (8.5-10.1); CARBON DIOXIDE 34.1 mmol/L (21-32); CHLORIDE 104 mmol/L (98-107); COR CA(FOR HYPOALB) 9.6 mg/dL (8.5-10.1); CREATININE 0.91 mg/dL (0.70-1.30); GLUCOSE 101 mg/dL (65-99); SODIUM 141 mmol/L (136-145); TOTAL PROTEIN 5.8 g/dL (6.4-8.2); eGFR NON BLACK RACES > 60 (>60)
[2023-06-04] MEDS: XOPENEX 1.25 MG/3 ML NEBULE NEB SCH ×3 (06:18→20:40)
[2023-06-04] MEDS ORDERED: LEXAPRO ONE (09:24)
[2023-06-04] MEDS: SOLU-Medrol 40 MG VIAL IVP SCH (10:06)
[2023-06-04] MEDS: LEXAPRO PO SCH (10:07)
[2023-06-04] MEDS: INDERAL TAB 10 MG PO SCH (10:07)
[2023-06-04] MEDS: ELIQUIS PO SCH ×2 (10:08→20:44)
[2023-06-04] MEDS: ROBITUSSIN DM PO SCH ×4 (10:08→20:45)
[2023-06-04] MEDS: ZITHROMAX INJ 500 MG VIAL 500 MG in NS 250 ML IV 250 ML IV SCH (10:08)
[2023-06-04] MEDS: SINGULAIR TAB 10 MG PO SCH (10:08)
[2023-06-04] MEDS: FLOMAX PO SCH (14:54)
[2023-06-04] MEDS: LANOXIN or DIGITEK PO SCH (14:54)
[2023-06-04] MEDS: NS 1,000 ML IV 1,000 ML IV SCH (14:57)
[2023-06-04] MEDS: VITAMIN C PO SCH (15:15)
[2023-06-04] MEDS: ZyrTEC TAB 10 MG PO SCH (20:44)
[2023-06-04] MEDS: ASPIRIN EC 81 MG PO SCH (20:44)
[2023-06-04] MEDS: DESYREL PO SCH (20:44)
[2023-06-04] MEDS: PROTONIX TAB 40 MG PO SCH (20:44)
[2023-06-04] MEDS: CITRACAL + VITAMIN D PO SCH (20:45)
[2023-06-05] MEDS: NS 1,000 ML IV 1,000 ML IV SCH ×2 (02:06→15:31)
[2023-06-05] MEDS: XOPENEX 1.25 MG/3 ML NEBULE NEB SCH ×3 (05:40→20:50)
[2023-06-05 06:01] LABS: BASOPHILS % (AUTO) 0.3 % (0.2-1.0); EOSINOPHILS % (AUTO) 0.2 % (0.9-2.9); HEMATOCRIT 39.2 % (42.0-54.0); HEMOGLOBIN 13.1 g/dL (13.5-18.0); LYMPHOCYTES # (AUTO) 1.2 X10^3/uL (1.3-2.9); LYMPHOCYTES % (AUTO) 9.3 % (21.0-51.0); MEAN CORPUSCULAR HEMOGLOBIN 30.6 pg (27.0-34.0); MEAN CORPUSCULAR HGB CONC 33.3 g/dL (33.0-35.0); MEAN CORPUSCULAR VOLUME 91.9 fL (80.0-100.0); MEAN PLATELET VOLUME 8.6 fL (7.4-11.0); MONOCYTES % (AUTO) 7.7 % (0.0-13.0); NEUTROPHILS % (AUTO) 82.5 % (42.0-75.0); PLATELET COUNT 200 X10^3/uL (150.0-450.0); RED BLOOD COUNT 4.27 X10^6/uL (4.7-6.0); RED CELL DISTRIBUTION WIDTH 15.6 % (11.6-16.5); WHITE BLOOD COUNT 13.3 X10^3/uL (3.6-10.0)
[2023-06-05 06:11] LABS: ALANINE AMINOTRANSFERASE 31 Units/L (12-78); ALBUMIN 2.4 g/dL (3.4-5.0); ALKALINE PHOSPHATASE 86 Units/L (46-116); ASPARTATE AMINO TRANSFERASE 24 Units/L (15-37); BLOOD UREA NITROGEN 23 mg/dL (7-18); CALCIUM 8.3 mg/dL (8.5-10.1); CARBON DIOXIDE 33.4 mmol/L (21-32); CHLORIDE 103 mmol/L (98-107); COR CA(FOR HYPOALB) 9.6 mg/dL (8.5-10.1); COR NA(FOR HYPERGLY) 141 mmol/L (136-145); CREATININE 0.96 mg/dL (0.70-1.30); GLUCOSE 142 mg/dL (65-99); SODIUM 140 mmol/L (136-145); eGFR NON BLACK RACES > 60 (>60)
[2023-06-05 06:14] LABS: BAND NEUTROPHILS % 3 % (0-10)
[2023-06-05 06:15] LABS: METAMYELOCYTES % 1; PLATELET MORPHOLOGY COMMENT NORMAL (NORMAL)
[2023-06-05] MEDS ORDERED: LEXAPRO ONE (08:20)
[2023-06-05] MEDS: SOLU-Medrol 40 MG VIAL IVP SCH (08:29)
[2023-06-05] MEDS: LEXAPRO PO SCH (08:30)
[2023-06-05] MEDS: ELIQUIS PO SCH ×2 (08:31→21:11)
[2023-06-05] MEDS: SINGULAIR TAB 10 MG PO SCH (08:31)
[2023-06-05] MEDS: ROBITUSSIN DM PO SCH ×4 (08:32→21:11)
[2023-06-05] MEDS: ZITHROMAX INJ 500 MG VIAL 500 MG in NS 250 ML IV 250 ML IV SCH (08:32)
[2023-06-05] MEDS: INDERAL TAB 10 MG PO SCH (08:32)
[2023-06-05] MEDS: LANOXIN or DIGITEK PO SCH (13:56)
[2023-06-05] MEDS: FLOMAX PO SCH (13:56)
[2023-06-05] MEDS: VITAMIN C PO SCH (13:57)
[2023-06-05] MEDS: CITRACAL + VITAMIN D PO SCH (21:10)
[2023-06-05] MEDS: ASPIRIN EC 81 MG PO SCH (21:11)
[2023-06-05] MEDS: DESYREL PO SCH (21:11)
[2023-06-05] MEDS: PROTONIX TAB 40 MG PO SCH (21:11)
[2023-06-05] MEDS: ZyrTEC TAB 10 MG PO SCH (21:11)
[2023-06-06] MEDS: NS 1,000 ML IV 1,000 ML IV SCH (05:12)
[2023-06-06] MEDS: XOPENEX 1.25 MG/3 ML NEBULE NEB SCH (05:45)
[2023-06-06 06:04] LABS: BASOPHILS % (AUTO) 0.2 % (0.2-1.0); EOSINOPHILS % (AUTO) 0.3 % (0.9-2.9); HEMOGLOBIN 13.1 g/dL (13.5-18.0); LYMPHOCYTES # (AUTO) 1.5 X10^3/uL (1.3-2.9); LYMPHOCYTES % (AUTO) 9.9 % (21.0-51.0); MEAN CORPUSCULAR HEMOGLOBIN 30.3 pg (27.0-34.0); MEAN CORPUSCULAR HGB CONC 32.7 g/dL (33.0-35.0); MEAN CORPUSCULAR VOLUME 92.6 fL (80.0-100.0); MEAN PLATELET VOLUME 8.5 fL (7.4-11.0); MONOCYTES % (AUTO) 6.8 % (0.0-13.0); NEUTROPHILS # (AUTO) 12.2 x10^3/uL (2.2-4.8); NEUTROPHILS % (AUTO) 82.8 % (42.0-75.0); PLATELET COUNT 202 X10^3/uL (150.0-450.0); RED BLOOD COUNT 4.32 X10^6/uL (4.7-6.0); RED CELL DISTRIBUTION WIDTH 15.6 % (11.6-16.5); WHITE BLOOD COUNT 14.8 X10^3/uL (3.6-10.0)
[2023-06-06 06:24] LABS: ALANINE AMINOTRANSFERASE 36 Units/L (12-78); ALBUMIN 2.4 g/dL (3.4-5.0); ALKALINE PHOSPHATASE 89 Units/L (46-116); ASPARTATE AMINO TRANSFERASE 25 Units/L (15-37); BLOOD UREA NITROGEN 24 mg/dL (7-18); CALCIUM 8.1 mg/dL (8.5-10.1); CARBON DIOXIDE 36.9 mmol/L (21-32); CHLORIDE 99 mmol/L (98-107); COR CA(FOR HYPOALB) 9.4 mg/dL (8.5-10.1); CREATININE 1.03 mg/dL (0.70-1.30); GLUCOSE 98 mg/dL (65-99); POTASSIUM 4.2 mmol/L (3.5-5.1); SODIUM 139 mmol/L (136-145); TOTAL PROTEIN 5.9 g/dL (6.4-8.2); eGFR NON BLACK RACES > 60 (>60)
[2023-06-06 06:25] LABS: BAND NEUTROPHILS % 7 % (0-10); PLATELET MORPHOLOGY COMMENT NORMAL (NORMAL)
[2023-06-06] MEDS ORDERED: LEXAPRO ONE (08:01)
[2023-06-06] MEDS: SOLU-Medrol 40 MG VIAL IVP SCH (08:11)
[2023-06-06] MEDS: INDERAL TAB 10 MG PO SCH (08:12)
[2023-06-06] MEDS: ELIQUIS PO SCH (08:12)
[2023-06-06] MEDS: SINGULAIR TAB 10 MG PO SCH (08:12)
[2023-06-06] MEDS: LEXAPRO PO SCH (08:13)
[2023-06-06] MEDS: ZITHROMAX INJ 500 MG VIAL 500 MG in NS 250 ML IV 250 ML IV SCH (08:13)
[2023-06-06] MEDS: ROBITUSSIN DM PO SCH ×2 (08:13→13:23)
[2023-06-06 10:15] VITALS: BP 104/65; PULSE 63; RESP 20; TEMP 97.6; O2SAT 97
[2023-06-06] MEDS ORDERED: LASIX IVP ONE (10:51)
[2023-06-06] MEDS: FLOMAX PO SCH (13:22)
[2023-06-06] MEDS: VITAMIN C PO SCH (13:23)
[2023-06-06] MEDS: LANOXIN or DIGITEK PO SCH (13:48)
== END 2023-06-06 13:55 | disposition home health service (06) | DRG 194 ==
LOC: MED/SURG 10:10 → ER 10:10 → MED/SURG 14:50
PROVIDERS: ADMIT Internal Medicine; ATTEND Internal Medicine
DX: M54.2 Cervicalgia; I25.10 Atherosclerotic heart disease of native coronary artery without angina pectoris; R31.9 Hematuria, unspecified; Z91.81 History of falling; J12.1 Respiratory syncytial virus pneumonia; I10 Essential (primary) hypertension; R26.89 Other abnormalities of gait and mobility; Z79.01 Long term (current) use of anticoagulants; I71.21 Aneurysm of the ascending aorta, without rupture; F33.9 Major depressive disorder, recurrent, unspecified; Y92.9 Unspecified place or not applicable; J44.9 Chronic obstructive pulmonary disease, unspecified; Z87.442 Personal history of urinary calculi; E83.42 Hypomagnesemia; R73.09 Other abnormal glucose; R00.0 Tachycardia, unspecified; R79.1 Abnormal coagulation profile; K21.9 Gastro-esophageal reflux disease without esophagitis; R07.81 Pleurodynia; W18.09XA Striking against other object with subsequent fall, initial encounter; R53.1 Weakness; E86.0 Dehydration; R06.02 Shortness of breath